=== PATIENT | male | born 1960 | race Caucasian/White ===

== ENCOUNTER → 2016-05-07 | Outpatient (CLI) | payer OTHER ==
[2016-05-07 12:36] LABS: Basophils % (A) 0 %; CH 30.6; CHCM 33.8; Eosinophils # (A) 0.1 k/uL (0-0.7); Eosinophils % (A) 1 %; HCT 41.8 % (39.0-53.0); HDW 2.42; HGB 13.8 gm/dL (13.0-17.5); Luc # (Auto) 0.11; Luc % (Auto) 1; Lymphocytes # (A) 1.2 k/uL (1.0-4.8); Lymphocytes % (A) 14 %; MCH 30.1 pg (25.0-35.0); MCV 91.1 fL (80.0-100.0); Mean Platelet Volume 8.1; Monocytes # (A) 0.4 k/uL (0-1.0); Monocytes % (A) 5 %; Neutrophils # (A) 6.9 k/uL (1.3-7.7); Neutrophils % (A) 79 %; RBC 4.59 m/uL (4.30-5.90); RDW 12.8 % (11.5-15.5); WBC 8.7 k/uL (3.8-10.6); WBC (Perox) 9.13
[2016-05-07 14:05] LABS: ALT 41 U/L (21-72); AST 23 U/L (17-59); Alkaline Phosphatase 67 U/L (38-126); Bilirubin, Delta 0.4 mg/dL (0.0-0.2); Total Bilirubin 0.5 mg/dL (0.2-1.3); Total Protein 7.9 g/dL (6.3-8.2)
== END | disposition home or self-care (01) ==
LOC: LABWHC1 11:45
PROVIDERS: ATTEND Nurse Practitioner Family
DX: Z51.81 Encounter for therapeutic drug level monitoring (principal); Z79.899 Other long term (current) drug therapy
CPT/HCPCS: 36415; 80076; 80164; 85025

== ENCOUNTER → 2016-05-25 | Outpatient (CLI) | payer OTHER ==
--- NOTE | 2016-05-25 14:15 | XR ---
EXAMINATION TYPE: XR Hip Complete LT DATE OF EXAM: 05/25/2016 2:09 PM COMPARISON: NONE HISTORY: Pain There is no evidence of erosive change or acute fracture. There is moderate axial narrowing of the joint space. Soft tissue calcifications seen. Impression 1. No evidence of acute fracture or dislocation. 2. Post arthritic changes.
--- NOTE | 2016-05-25 14:15 | XR ---
EXAMINATION TYPE: XR ankle complete RT DATE OF EXAM: 05/25/2016 2:09 PM COMPARISON: Tibia fibula x-ray 11/16/2012 HISTORY: Pain Three views of the ankle demonstrate complete loss of the ankle mortise with no evidence of joint spa ce remaining. There is fragmentation and soft tissue ossification along the lateral margin with soft tissue edema. There is a lucency within the distal tibia. IMPRESSION: 1. Severe arthritic change. Osteonecrosis of the talar dome not excluded. Recommend follow-up CT or M RI. 2. New round lucency, intraosseous lesion involving the distal tibia relative to the previous exam. T his can be seen with a large post arthritic geode. If there is concern for Sotero's abscess recommend MRI.
--- NOTE | 2016-05-25 14:18 | XR ---
EXAMINATION TYPE: XR knee complete LT DATE OF EXAM: 05/25/2016 2:09 PM COMPARISON: NONE HISTORY: Pain FINDINGS: There is severe narrowing of the medial compartment of the knee joint with hypertrophic change and ch ondrocalcinosis. Extensive hypertrophic changes are seen posterior within the popliteal fossa and nacho ng the suprapatellar bursa. Synovial chondromatosis in the differential. Large intraosseous lesion involving the proximal tibia may represent a bone cyst or be related to lar ge geode secondary to post arthritic changes. This is a new finding from the x-ray of 11/16/2012. IMPRESSION: 1. Severe arthritic changes 2. Persistent soft tissue calcification or ossification. Differential include synovial chondromatosis and PVNS. 3. Large cystic lesion involving the epiphysis of the tibia likely post arthritic and related to larg e geode or bone cyst.
== END | disposition home or self-care (01) ==
LOC: RADXRMAIN 13:39
PROVIDERS: ATTEND Psychiatry & Neurology Neurology
DX: M17.12 Unilateral primary osteoarthritis, left knee (principal); M19.071 Primary osteoarthritis, right ankle and foot; M16.12 Unilateral primary osteoarthritis, left hip; M85.662 Other cyst of bone, left lower leg
CPT/HCPCS: 73502

== ENCOUNTER → 2016-06-18 | Outpatient (CLI) | payer OTHER | END | disposition home or self-care (01) | LOC: LABWHC1 13:13 | PROVIDERS: ATTEND Psychiatry & Neurology Pain Medicine | DX: M87.9 Osteonecrosis, unspecified (principal) | CPT/HCPCS: 36415; 82306; 82310 ==

== ENCOUNTER → 2016-06-29 | Outpatient (CLI) | payer OTHER ==
--- NOTE | 2016-06-29 09:20 | US ---
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 EXAM MEASUREMENTS: Liver Length: 18.6 cm Gallbladder Wall: 0.3 cm CBD: 0.3 cm Right Kidney: 12.5 x 4.9 x 5.5 cm TECHNOLOGIST IMPRESSION: Pancreas: visualized portions appear wnl, tail obscured by overlying bowel gas Liver: enlarged, heterogeneously hyperechoic in appearance Gallbladder: non-mobile echogenic area = 0.3cm Evidence for sonographic Buckley's sign: No CBD: appears wnl Right Kidney: cystic area lower pole = 2.0 x 1.9 x 2.0cm Heterogeneous liver without intrahepatic ductal dilatation. Evaluation for masses is slightly subopti mal due to heterogeneity. Gallbladder is seen without shadowing mobile gallstones. 3 mm nonshadowing hyperechoic focus is suggestive of small polyp. There is 2 cm simple appearing cyst lower pole level right kidney redemonstrated slightly more prominent or larger versus prior study. IMPRESSION: Heterogeneous liver could reflect product of diffuse fatty infiltration or known underlyi ng hepatocellular disease. No intrahepatic ductal dilatation is noted.
== END | disposition home or self-care (01) ==
LOC: RADUSWWP 08:23
PROVIDERS: ATTEND Internal Medicine Gastroenterology
DX: B18.2 Chronic viral hepatitis C (principal)
CPT/HCPCS: 76705

== ENCOUNTER → 2016-07-01 | Outpatient (CLI) | payer OTHER ==
--- NOTE | 2016-07-01 07:51 | MR ---
EXAMINATION TYPE: MR hip LT wo con DATE OF EXAM: 07/01/2016 7:15 AM COMPARISON: NONE HISTORY: left hip pain TECHNIQUE: Multiplanar, multiecho imaging of the left hip is performed without IV contrast. FINDINGS: Pelvic soft tissues are unremarkable. There is mild degenerative change of both hips with mild overgrowth of the acetabulum. There is no ev idence of avascular necrosis of either hip. I do not see evidence of femoroacetabular impingement syn drome. No definite joint effusions are seen. There is no evidence of significant bursitis. I do not s ee evidence of a sports hernia. IMPRESSION: NO ACUTE OSSEOUS OR SOFT TISSUE ABNORMALITY. THERE IS MILD DEGENERATIVE CHANGE IN BOTH HIPS.
--- NOTE | 2016-07-01 08:03 | MR ---
EXAMINATION TYPE: MR knee LT wo con DATE OF EXAM: 07/01/2016 7:32 AM COMPARISON: Previous radiograph dated 05/25/2016. HISTORY: left knee pain TECHNIQUE: Multiplanar, multiecho imaging of the left knee is performed without IV contrast. FINDINGS: There is a small joint effusion which is decompressed into the gastrocnemius semimembranosu s bursa. This bursa is quite prominent measuring 7.9 x 2.8 x 3.8 cm. There is a small geode within the lateral patellar facet. There is a prominent, 3.9 cm cystic lesion within the proximal tibia just inferior to the lateral tibial spine. This was present on her previous radiograph. There is no significant chondromalacia patella. There is grade III to IV chondromalacia involving the weightbearing surface of the medial femoral condyle. There is complete loss of cartilaginous surface of the medial tibial plateau. There is grade I to II chondromalacia involving the weightbearing surf marielena of the lateral femoral condyle. There are remodeling changes in all 3 compartments. There is some abnormal signal within the anterior horn of the lateral meniscus. No through and throug h tear is seen. The medial meniscus is largely absent either truncated or surgically removed. The posterior cruciate ligament is intact. The anterior cruciate ligament is not visualized. There is an osseous loose body within the condylar notch. There is also a large loose body measuring 2.5 cm just posterior to the posterior cruciate ligament. A third, large ossific density is noted just superior to the posterior aspect of the medial femoral c ondyle. This measures 2.4 x 2.3 cm. This is causing erosion of the posterior aspect of the medial fem oral condyle. There is a fourth loose body measuring 1.1 cm and the trochlear notch. Both the medial and lateral collateral ligament complexes are intact. The iliotibial band inserts nor rashmi upon Gerdy's tubercle. The popliteus muscle and tendon appear normal. Both the patellar and quadriceps tendons are intact. There is mild swelling in the Hoffa fat space. IMPRESSION: 1. SEVERE CHONDROMALACIA DESCRIBED. 2. OSTEOARTHRITIS WITH REMODELING CHANGES. 3. GEODES IN BOTH THE PATELLA AND TIBIA. 4. MARKED DISTENTION OF THE GASTROCNEMIUS SEMIMEMBRANOSUS BURSA. 5. MULTIPLE LOOSE BODIES. 6. I CANNOT IDENTIFY THE ANTERIOR CRUCIATE LIGAMENT. 7. MARKEDLY ABNORMAL MEDIAL MENISCUS.
--- NOTE | 2016-07-01 09:13 | MR ---
EXAMINATION TYPE: MR knee RT wo con DATE OF EXAM: 07/01/2016 7:48 AM COMPARISON: NONE HISTORY: 56-year-old male with right knee pain TECHNIQUE: Multiplanar, multisequence imaging of the right knee is performed without IV contrast. FINDINGS: ACL and PCL are intact. There is mild thickening and periligamentous edema about the MCL which is oth erwise intact. LCL complex is intact. Fluid is seen extending along the popliteus tendon sheath. The posterior horn and body of the medial meniscus is diffusely degenerative and torn. Tear extends a nteriorly to the junction with the anterior horn. There is cartilage irregularity within the medial c ompartment with irregularity of the subchondral bone plate as well and some subchondral cystic change along the mid weightbearing aspect. There appears to be fairly high-grade cartilage loss along the m id to posterior central aspect of the medial femoral condyle with a defect measuring 9 mm wide and 2. 6 cm AP. The lateral meniscus appears intact intact. While there is marginal spurring in the lateral compartme nt, overall lateral compartment articular cartilage volume appears maintained. There is moderate focal cartilage loss along the trochlear groove and medial trochlear facet of the p atellofemoral compartment with some reactive subchondral marrow changes. Overall patellar articular c artilage is maintained. Extensor mechanism is intact. There is a small knee joint effusion and trace early Ahn's cyst formation. Loose bodies are present, largest is anteriorly in the region of Hoffa's fat measuring 2.4 x 2.0 cm. Approximately 5 loose bodies are present posteriorly, largest measuring 1.3 cm. There is normal popliteal artery anatomy with mild diffuse muscular atrophy. No suspicious bone marro w replacement. IMPRESSION: 1. Degenerative and torn posterior horn and body of the medial meniscus with tear extending forward t o the junction with the anterior horn. 2. Medial compartmental osteoarthrosis. There is superficial cartilage irregularity and possible old osteochondral injuries. However, an area of high-grade cartilage loss is present along the mid to pos terior central aspect of the medial femoral condyle measuring 9 mm wide and 2.6 cm AP. 3. Mild overall patellofemoral compartmental osteoarthrosis with cartilage cartilage loss along the t rochlear groove and medial trochlear facet. 4. Grade 1 MCL sprain. 5. Multiple intra-articular loose bodies, the largest is in the region of Hoffa's fat measuring up to 2.4 cm and there are 5 posteriorly measuring up to 1.3 cm. 6. Small knee joint effusion and trace early Ahn's cyst.
== END | disposition home or self-care (01) ==
LOC: RADMRIMAIN 06:08
PROVIDERS: ATTEND Psychiatry & Neurology Pain Medicine
DX: S83.241A Other tear of medial meniscus, current injury, right knee, initial encounter (principal); M25.861 Other specified joint disorders, right knee; S83.411A Sprain of medial collateral ligament of right knee, initial encounter; M79.4 Hypertrophy of (infrapatellar) fat pad; M71.21 Synovial cyst of popliteal space [Baker], right knee; M94.262 Chondromalacia, left knee; M25.862 Other specified joint disorders, left knee; M17.0 Bilateral primary osteoarthritis of knee; M16.0 Bilateral primary osteoarthritis of hip

== ENCOUNTER → 2016-07-03 | Outpatient (CLI) | payer OTHER ==
[2016-07-03 12:47] LABS: Basophils % (A) 0 %; CH 31.2; CHCM 33.9; Eosinophils # (A) 0.1 k/uL (0-0.7); Eosinophils % (A) 2 %; HCT 40.3 % (39.0-53.0); HDW 2.39; HGB 13.4 gm/dL (13.0-17.5); Luc % (Auto) 3; Lymphocytes # (A) 1.2 k/uL (1.0-4.8); Lymphocytes % (A) 17 %; MCH 30.7 pg (25.0-35.0); MCHC 33.2 g/dL (31.0-37.0); MCV 92.5 fL (80.0-100.0); Mean Platelet Volume 8.1; Monocytes # (A) 0.3 k/uL (0-1.0); Monocytes % (A) 5 %; Neutrophils # (A) 4.9 k/uL (1.3-7.7); Neutrophils % (A) 74 %; RBC 4.36 m/uL (4.30-5.90); RDW 13.8 % (11.5-15.5); WBC 6.7 k/uL (3.8-10.6); WBC (Perox) 7.17
[2016-07-06 15:50] LABS: HCV Qualitative Result DETECTED (Not detected)
== END | disposition home or self-care (01) ==
LOC: LABWHC1 12:22
PROVIDERS: ATTEND Internal Medicine Gastroenterology
DX: B18.2 Chronic viral hepatitis C (principal)
CPT/HCPCS: 36415; 82105; 85025; 87522; 87902

== ENCOUNTER → 2016-07-29 | Outpatient (CLI) | payer OTHER ==
[2016-07-29 06:02] LABS: ALT 41 U/L (21-72); AST 34 U/L (17-59); Alkaline Phosphatase 95 U/L (38-126); Anion Gap 15 mmol/L; Blood Urea Nitrogen 12 mg/dL (9-20); Calcium 9.8 mg/dL (8.4-10.2); Carbon Dioxide 26 mmol/L (22-30); Chloride 102 mmol/L (98-107); Glucose 131 mg/dL (74-99); Non-African American GFR(MDRD) >60 (>60 ml/min/1.73 sqM); Potassium 4.8 mmol/L (3.5-5.1); Sodium 143 mmol/L (137-145); Total Bilirubin 0.6 mg/dL (0.2-1.3)
[2016-07-29 06:31] LABS: Basophils % (A) 0 %; CH 31.9; CHCM 33.4; Eosinophils # (A) 0.3 k/uL (0-0.7); Eosinophils % (A) 3 %; HCT 39.9 % (39.0-53.0); HDW 2.38; Luc # (Auto) 0.25; Luc % (Auto) 3; Lymphocytes # (A) 2.5 k/uL (1.0-4.8); Lymphocytes % (A) 27 %; MCH 31.4 pg (25.0-35.0); MCHC 32.7 g/dL (31.0-37.0); MCV 96.1 fL (80.0-100.0); Mean Platelet Volume 8.7; Monocytes # (A) 0.5 k/uL (0-1.0); Monocytes % (A) 6 %; Neutrophils # (A) 5.5 k/uL (1.3-7.7); Neutrophils % (A) 61 %; RBC 4.16 m/uL (4.30-5.90); RDW 14.5 % (11.5-15.5)
== END | disposition home or self-care (01) ==
LOC: LABMAIN 02:16
PROVIDERS: ATTEND Internal Medicine Gastroenterology
DX: B18.2 Chronic viral hepatitis C (principal)
CPT/HCPCS: 36415; 80053; 85025

== ENCOUNTER → 2016-08-06 | Outpatient (CLI) | payer OTHER ==
--- NOTE | 2016-08-08 08:48 | MR ---
EXAMINATION TYPE: MR ankle RT wo con DATE OF EXAM: 08/06/2016 8:56 PM COMPARISON: Radiograph dated 05/25/2016 of the right ankle. HISTORY: Pain after injury. TECHNIQUE: Multiplanar, multisequence images of the right ankle without the utilization of intravenou s contrast. FINDINGS: Alignment: There is extensive joint space narrowing of the talotibial joint with nearly bone on bone articulation. Medial compartment: The posterior tibial tendon, flexor digitorum longus tendon, and deltoid ligament complex are intact. Lateral compartment::The peroneus longus tendon, peroneus brevis tendon, posterior talofibular ligame nt, and calcaneofibular ligament are intact. There is a full-thickness tear of the anterior talofibul ar ligament. Posterior compartment: The Achilles tendon, flexor hallucis longus tendon, and plantar fascia are int act and of normal signal. Anterior compartment: The extensor hallucis longus, extensor digitorum longus, and anterior tibial te ndon are intact and of normal signal. Bone marrow signal and articulations: As described above there is near [id number] articulation of t he talotibial joint. Extensive subchondral cysts are seen within the distal tibial at the articular s urface and talus at the articular surface. A larger bone cyst that is T2 hyperintense and T1 hypointe nse is seen medially measuring 1.8 cm. Osteophytic spurring and surrounding fibrous reactive change a re extensively present at the anterior tibiotalar joint and to a much lesser degree at the talonavicu lar joint. Reactive bone marrow edema is seen of the distal tibia and talar dome. Although there is e xtensive subchondral cystic change there is no flattening of the talar dome to indicate avascular nec rosis. Osteophyte projecting off the calcaneus at the articulation of the posterior facet of the talu s and the calcaneus creates surrounding inflammatory change of the subcutaneous soft tissues. Localized bone marrow edema is seen just deep to the sustentaculum cedric no discrete fracture is ident ified. Other: No additional significant abnormality is appreciated. IMPRESSION: 1. Extensive degenerative change of the talotibial joint with near [id number] articulation and reac tive bone marrow edema of the distal tibia and talar dome. Notably there is no flattening of the desiree r dome or evidence of avascular necrosis. 2. Focal calcaneal bone marrow edema deep to the sustentaculum cedric without discrete fracture. 3. Full-thickness tear of the anterior talofibular ligament. 4. Extensive arthropathy of the anterior and posterior tibiotalar joints and calcaneal joints may cre ate impingement.
--- NOTE | 2016-08-08 09:01 | MR ---
EXAMINATION TYPE: MR ankle LT wo con DATE OF EXAM: 08/06/2016 8:56 PM COMPARISON: None. HISTORY: Pain. TECHNIQUE: Multiplanar, multisequence images of the left ankle without the utilization of intravenous contrast. FINDINGS: Alignment: Alignment of the ankle joint is maintained. Medial compartment: The posterior tibial tendon, flexor digitorum longus tendon, and deltoid ligament complex are intact. Lateral compartment: There is suspected short segment split tear of the peroneus brevis tendon distal to the ankle joint with surrounding high signal intensity indicating tenosynovitis. The peroneus yasir bud tendon, posterior talofibular ligament, and calcaneofibular ligament are intact. There is a full- thickness tear of the anterior talofibular ligament. Posterior compartment: The Achilles tendon, flexor hallucis longus tendon, and plantar fascia are int act and of normal signal. Anterior compartment: The extensor hallucis longus, extensor digitorum longus, and anterior tibial te ndon are intact and of normal signal. Bone marrow signal and articulations: Small subchondral cyst is present of the posterior medial dista l tibia at the tibiotalar articulation. Small bone cyst is also seen of the second cuneiform proximal ly without significant bone marrow edema. Minimal marginal osteophyte of early arthropathy are presen t at the talonavicular joint. Other: No additional significant abnormality is appreciated. IMPRESSION: 1. Full-thickness tear of the anterior talofibular ligament. 2. Suggestion of a short segment split tear of the prominence brevis distal to the ankle joint with a ssociated tenosynovitis. 3. Mild osteoarthritic changes of the tibiotalar joint and talonavicular joint.
== END ==
LOC: RADMRIMAIN 18:54
PROVIDERS: ATTEND Psychiatry & Neurology Pain Medicine
DX: S83.421A Sprain of lateral collateral ligament of right knee, initial encounter (principal); R60.0 Localized edema; S83.422A Sprain of lateral collateral ligament of left knee, initial encounter; M19.071 Primary osteoarthritis, right ankle and foot; M19.072 Primary osteoarthritis, left ankle and foot

== ENCOUNTER 2017-07-28 14:15 | Inpatient (IN) | payer MEDICAID, OTHER ==
--- NOTE | 2017-07-28 16:09 | ED ---
Psych HPI - General Chief Complaint: Psychiatric Symptoms Stated Complaint: suicidal Time Seen by Provider: 07/28/17 14:20 Source: patient, police Mode of arrival: EMS - History of Present Illness Initial Comments: Patient complains of acute psychiatric disorder. He has aggressive behavior. He also admits to alcohol intoxication. Patient denies any fever, chills, chest pain. He has no belly or back pain. He has no nausea or vomiting. He has no lightheadedness or dizziness. He has no weakness or trouble walking. He is tolerating oral intake. - Related Data Home Medications Medication Instructions Recorded Confirmed ALPRAZolam [Xanax] 1 mg PO TID 07/28/17 07/28/17 Divalproex ER [Depakote ER] 500 mg PO HS 07/28/17 07/28/17 HYDROcodone/APAP 10-325MG [[place] 1 tab PO TID PRN 07/28/17 07/28/17 10-325] Lisdexamfetamine Dimesylate 70 mg PO DAILY 07/28/17 07/28/17 [Vyvanse] Pregabalin [Lyrica] 75 mg PO BID 07/28/17 07/28/17 QUEtiapine FUMARATE [Seroquel Xr] 400 mg PO HS 07/28/17 07/28/17 Topiramate [Topamax] 25 mg PO BID 07/28/17 07/28/17 Allergies Allergy/AdvReac Type Severity Reaction Status Date / Time No Known Allergies Allergy Verified 07/28/17 14:39 Review of Systems ROS Statement: Those systems with pertinent positive or pertinent negative responses have been documented in the HPI. ROS Other: All systems not noted in ROS Statement are negative. Past Medical History Past Medical History: Deep Vein Thrombosis (DVT), Hypertension Additional Past Medical History / Comment(s): Hernia, degenerative arthritis History of Any Multi-Drug Resistant Organisms: None Reported Past Surgical History: Hernia Repair, Orthopedic Surgery Additional Past Surgical History / Comment(s): Umbilical hernia repair, I&D of the left foot between the fourth and fifth toes Past Anesthesia/Blood Transfusion Reactions: No Reported Reaction Past Psychological History: ADD/ADHD Smoking Status: Current every day smoker Past Alcohol Use History: Occasional Past Drug Use History: None Reported - Past Family History Father Additional Family Medical History / Comment(s): Biological father in his 60s from complications of an ankle surgery. Mother Additional Family Medical History / Comment(s): Biological mother in her 50s from suicide. Sister(s) Additional Family Medical History / Comment(s): He has 8 sisters with no major medical problems. Patient does not have any children. General Exam Limitations: no limitations General appearance: alert, in no apparent distress Head exam: Present: atraumatic, normocephalic, normal inspection Eye exam: Present: normal appearance, PERRL, EOMI. Absent: scleral icterus, conjunctival injection, periorbital swelling ENT exam: Present: normal exam Neck exam: Present: normal inspection Respiratory exam: Absent: respiratory distress Extremities exam: Present: normal inspection, full ROM Back exam: Present: normal inspection Neurological exam: Present: alert, oriented X3 Psychiatric exam: Present: normal affect Skin exam: Present: intact Course Vital Signs 07/28/17 14:26 Temperature 98.6 F Pulse Rate 96 Respiratory 18 Rate Blood Pressure 142/78 O2 Sat by Pulse 96 Oximetry Medical Decision Making - Medical Decision Making Patient presents with psychiatric disorder and acute alcohol intoxication. At this time it is in the my shift. Patient is pending sobriety and psychiatric evaluation. He'll be signed out to the oncoming physician. Disposition Clinical Impression: Depression, Alcohol intoxication Disposition: ADMITTED IP TO THIS [facility] Condition: Fair Is patient prescribed a controlled substance at discharge?: No Referrals: None,Stated [Primary Care Provider] - 1-2 days
[2017-07-28 19:12] LABS: Amphetamine Screen,Urine Detected (NotDetected); Barbiturate Screen,Urine Not Detected (NotDetected); Benzodiazepines Screen,Urine Detected (NotDetected); Cocaine Screen,Urine Not Detected (NotDetected); Methadone Screen, Urine Not Detected (NotDetected); Opiate Screen,Urine Not Detected (NotDetected); Oxycodone Screen, Urine Not Detected (NotDetected); Phencyclidine Screen,Urine Not Detected (NotDetected); Tricyclic Antidepressant,Urine Not Detected (NotDetected); Urn Cannabinoid Scrn Detected (NotDetected)
[2017-07-28] MEDS ORDERED: ACETAMINOPHEN TAB 325 MG TAB PO PRN (22:55)
[2017-07-28] MEDS ORDERED: MAG HYDROX/AL HYDROX/SIMETH 30 ML CUP PO PRN (22:55)
[2017-07-28] MEDS ORDERED: MAGNESIUM HYDROXIDE 2,400 MG/10 ML CUP PO PRN (22:55)
[2017-07-28 23:05] VITALS: BMI 23.5
[2017-07-28] MEDS: DIVALPROEX ER 500 MG TAB.ER.24H PO SCH (23:38)
[2017-07-28] MEDS: LORazepam 1 MG TAB PO SCH (23:38)
[2017-07-29] MEDS: LORazepam 1 MG TAB PO SCH ×3 (08:13→20:16)
[2017-07-29] MEDS: NICOTINE 21MG/24HR PATCH TRANSDERM SCH (08:13)
[2017-07-29] MEDS: TOPIRAMATE 25 MG TAB PO SCH ×2 (08:13→20:17)
[2017-07-29 09:07] LABS: Basophils % (A) 0 %; Eosinophils # (A) 0.1 k/uL (0-0.7); Eosinophils % (A) 2 %; HCT 47.1 % (39.0-53.0); HGB 15.4 gm/dL (13.0-17.5); Lymphocytes # (A) 1.7 k/uL (1.0-4.8); Lymphocytes % (A) 25 %; MCH 31.2 pg (25.0-35.0); MCHC 32.8 g/dL (31.0-37.0); MCV 95.2 fL (80.0-100.0); Mean Platelet Volume 8.3; Monocytes # (A) 0.4 k/uL (0-1.0); Monocytes % (A) 6 %; Neutrophils # (A) 4.4 k/uL (1.3-7.7); Neutrophils % (A) 65 %; Platelet Count 223 k/uL (150-450); RBC 4.94 m/uL (4.30-5.90); WBC 6.7 k/uL (3.8-10.6)
[2017-07-29 09:42] LABS: ALT 30 U/L (21-72); AST 23 U/L (17-59); Albumin 4.6 g/dL (3.5-5.0); Alkaline Phosphatase 106 U/L (38-126); Anion Gap 10 mmol/L; Blood Urea Nitrogen 14 mg/dL (9-20); Carbon Dioxide 25 mmol/L (22-30); Chloride 106 mmol/L (98-107); Cholesterol 268 mg/dL (<200); Glucose 139 mg/dL (74-99); HDL Cholesterol 106 mg/dL (40-60); LDL Cholesterol,Calculated 132 mg/dL (0-99); Potassium 4.4 mmol/L (3.5-5.1); Sodium 141 mmol/L (137-145); Total Bilirubin 0.6 mg/dL (0.2-1.3); Total Protein 7.4 g/dL (6.3-8.2); Triglycerides 152 mg/dL (<150)
[2017-07-29] MEDS: LORazepam 1 MG TAB PO PRN (11:29)
[2017-07-29] MEDS: FOLIC ACID 1 MG TAB PO SCH (11:29)
[2017-07-29] MEDS: THIAMINE 100 MG TAB PO SCH (11:30)
--- NOTE | 2017-07-29 12:49 | CONS ---
CONSULTATION REASON FOR CONSULTATION: Advice regarding back pain and other medical issues requested by Psychiatry. HISTORY OF PRESENT ILLNESS: This 57-year-old gentleman with a past medical history of back pain, numbness, DVT, hypertension, hernia, DJD, ADD, ADHD being followed by Dr. Rubi Ruiz in the outpatient setting was admitted with alcohol abuse. The patient apparently had a back pain and numbness. Evaluated by Dr. Zamudio and MRI scan was scheduled on of this month. The EMG has been done. Results are not available at this time. There is no history of fever, rigors. No headache, loss of consciousness, seizures. The patient also complaining of discharging area from between the left 4th and 5th toes and was admitted about 8 months ago in [facility]. PAST MEDICAL HISTORY: History of DVT, hypertension, history of DJD, ADD, ADHD, nicotine dependence, ETOH. MEDICATIONS: Prior to admission: 1. Mcdonald 10 mg t.i.d. p.r.n. 2. Topamax 25 mg p.o. b.i.d. 3. Vyvanse 70 mg p.o. daily. 4. Seroquel XR 400 mg q.h.s. 5. Lyrica 75 mg p.o. b.i.d. 6. Depakote ER 500 mg q.h.s. 7. Xanax 1 mg p.o. t.i.d. ALLERGIES: None. FAMILY HISTORY: History of degenerative joint disease. SOCIAL HISTORY: History of alcohol, THC, smoking. REVIEW OF SYSTEMS: ENT: No diminished vision or hearing. CARDIOVASCULAR: No angina. RESPIRATORY: Occasional cough. GI: No nausea or vomiting. : No dysuria. NERVOUS SYSTEM: Mentioned earlier. ALLERGY/IMMUNOLOGY: No history of asthma. MUSCULOSKELETAL: As mentioned earlier. HEMATOLOGY: No history of anemia. ENDOCRINE: No history of diabetes or hypothyroidism. CONSTITUTIONAL: As mentioned earlier. DERMATOLOGY: Negative. RHEUMATOLOGY: Negative. PSYCHIATRY: As mentioned earlier. PHYSICAL EXAM: Patient is alert, oriented x3. Pulse is 51, blood pressure 150/79, respirations 16, temperature 97.4, pulse ox 98% room air. HEENT: Conjunctivae normal. Oral mucosa moist. NECK: No jugular venous distention. No carotid bruit. No lymph node enlargement. CARDIOVASCULAR: S1, S2 muffled. No S3, no S4. RESPIRATORY: Breath sounds diminished in the bases. A few scattered rhonchi. No crackles. ABDOMEN: Soft, nontender. No mass palpable. LEGS: No edema, no swelling. NERVOUS SYSTEM: Higher functions as mentioned earlier. Moves all 4 limbs. Otherwise, mild numbness on the legs present. No evidence of cellulitis of the left foot. NERVOUS SYSTEM: No focal motor deficit. SKIN: As mentioned earlier. LYMPHATICS: No lymphadenopathy in the neck, axillae, groin. JOINTS: No active deforming arthropathy. LABS: At this time shows triglycerides 152, cholesterol 260, LDL is 132, HDL is 106. Drug screen positive for amphetamines, benzodiazepines and THC. ASSESSMENT: 1. Back pain and numbness of the legs, being evaluated in the outpatient setting. 2. ETOH and ETOH intoxication present on admission. 3. Depression. 4. Hyperlipidemia and hypertriglyceridemia. 5. History of deep vein thrombosis. 6. Hypertension. 7. History of hernia. 8. History of degenerative joint disease. 9. History of cellulitis of the left foot. 10.History of attention deficit disorder, attention deficit hyperactivity disorder. 11.History of nicotine dependence. 12.History of polysubstance abuse. RECOMMENDATION AND DISCUSSION: This 57-year-old gentleman who presented with multiple complex medical issues, will monitor the patient closely. Continue the current management, continue symptomatic treatment. I also recommend to resume the home medications. Otherwise I would also recommend initiation of Lipitor and I would also recommend close follow up with the primary physician in the outpatient setting. Thank you for letting us participate in this patient. Patient may be asked to follow up with Dr. Venegas closely in the outpatient setting. MMODL / IJN: [id number] /
[2017-07-29] MEDS: HYDROcodone/APAP 10-325MG 1 EACH TAB PO PRN (16:07)
[2017-07-29 16:57] LABS: Hemoglobin A1C 6.4 % (4.0-6.0)
[2017-07-29] MEDS: lamoTRIgine 25 MG TAB PO SCH (20:16)
[2017-07-29] MEDS: ATORVASTATIN 10 MG TAB PO SCH (20:16)
[2017-07-29] MEDS: DIVALPROEX ER 500 MG TAB.ER.24H PO SCH (20:17)
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
[2017-07-30] MEDS: NICOTINE 21MG/24HR PATCH TRANSDERM SCH (08:32)
[2017-07-30] MEDS: lamoTRIgine 25 MG TAB PO SCH ×2 (08:32→20:56)
[2017-07-30] MEDS: HYDROcodone/APAP 10-325MG 1 EACH TAB PO PRN ×2 (08:33→18:32)
[2017-07-30] MEDS: TOPIRAMATE 25 MG TAB PO SCH ×2 (08:33→20:55)
[2017-07-30] MEDS: LORazepam 1 MG TAB PO SCH ×3 (08:35→20:56)
--- NOTE | 2017-07-30 10:18 | P.PN ---
Progress Note - Text Interval history: The patient is found in group he follows me to an interview room. He reports that his mood is better. He reports having impaired sleep last night but it's better than it was before he came to the hospital. Staff reported he slept 6 hours. We discussed the possibility of him attending inpatient chemical dependency treatment and he states he is still giving it consideration. He has the phone number to call but has not yet made the call. We discussed the likelihood of inpatient chemical dependency treatment helping him. We reviewed his psychotropic medication. It appears Dr. Pinzon did reinstate the patient's [place] 10 mg 3 times daily. We are using Ativan to prevent alcohol withdrawal. Vital signs reviewed. Mental status exam: The patient is alert he has a disheveled appearance he is dressed in his own clothing. Eye contact is appropriate. He is cooperative and pleasant. He reports his moods improved. He feels safe here in the hospital. He is endorsing no acute thoughts of harming himself here. No thoughts of harming others. He is endorsing no auditory or visual hallucinations or any specific delusions. Thought process demonstrates no tangential thinking loose associations or flight of ideas. He does not appear hypomanic or manic. Insight and judgment limited. He is oriented to person place and date. He demonstrates no verbal or physical aggressiveness. Plan: The patient will continue on the Lamictal as written. We will discontinue the Depakote as he feels it makes him overly sedated during the day. Our goal is to taper down the Ativan. We will monitor him for safety and encourage his participation in the milieu. He strongly encouraged to call for inpatient chemical dependency placement.
[2017-07-30 10:54] LABS: Appearance,Urine Clear (Clear); Bilirubin,Urine Negative (Negative); Blood,Urine Negative (Negative); Color,Urine Yellow; Glucose,Urine (UA) 2+ (Negative); Ketones,Urine Negative (Negative); Leukocyte Esterase,Urine Negative (Negative); Nitrite,Urine Negative (Negative); PH, Urine 6.5 (5.0-8.0); Protein,Urine Trace (Negative); Specific Gravity,Urine 1.024 (1.001-1.035)
[2017-07-30] MEDS: THIAMINE 100 MG TAB PO SCH (12:18)
[2017-07-30] MEDS: FOLIC ACID 1 MG TAB PO SCH (12:18)
[2017-07-30] MEDS: LORazepam 1 MG TAB PO PRN (12:22)
[2017-07-30] MEDS: ATORVASTATIN 10 MG TAB PO SCH (20:56)
[2017-07-31] MEDS: NICOTINE 21MG/24HR PATCH TRANSDERM SCH (08:06)
[2017-07-31] MEDS: lamoTRIgine 25 MG TAB PO SCH ×2 (08:08→20:08)
[2017-07-31] MEDS: LORazepam 1 MG TAB PO SCH ×2 (08:08→20:08)
[2017-07-31] MEDS: HYDROcodone/APAP 10-325MG 1 EACH TAB PO PRN ×3 (08:08→23:15)
[2017-07-31] MEDS: TOPIRAMATE 25 MG TAB PO SCH ×2 (08:08→20:08)
[2017-07-31] MEDS: THIAMINE 100 MG TAB PO SCH (12:21)
[2017-07-31] MEDS: FOLIC ACID 1 MG TAB PO SCH (12:21)
--- NOTE | 2017-07-31 14:13 | P.PN ---
Progress Note - Text Progress Note Date: 07/31/17 Interval history: Patient seen in cross coverage today for Dr. Tello. Says he feels like he's been confused, for example when he wakes up he thinks he will be at home and even at nighttime he will have thoughts like he is at home. He seems to relate is not sleeping well. His vital signs today. To be within normal limits. He is not complaining of any significant alcohol withdrawal symptoms. Mental status exam: He is alert and cooperative with the interview. His speech is fluent, not rapid or pressured. Thought processes are organized. His mood is described as "lousy." He denies any thoughts of harm to self or others. He does not show any agitation. I do not notice any symptoms of psychosis. Plan: We'll taper back on Ativan as plan to 1 mg twice a day. We'll monitor for any alcohol withdrawal symptoms. He does have Ativan ordered as needed. We 'll continue to cover this patient for Dr. Alegria through the weekend.
[2017-07-31] MEDS: ATORVASTATIN 10 MG TAB PO SCH (20:08)
[2017-08-01 06:50] VITALS: RESP 16
[2017-08-01] MEDS: lamoTRIgine 25 MG TAB PO SCH ×2 (08:26→20:14)
[2017-08-01] MEDS: LORazepam 1 MG TAB PO SCH ×2 (08:26→20:14)
[2017-08-01] MEDS: TOPIRAMATE 25 MG TAB PO SCH ×2 (08:26→20:14)
[2017-08-01] MEDS: NICOTINE 21MG/24HR PATCH TRANSDERM SCH (08:26)
[2017-08-01] MEDS: HYDROcodone/APAP 10-325MG 1 EACH TAB PO PRN ×3 (08:26→22:25)
[2017-08-01] MEDS: FOLIC ACID 1 MG TAB PO SCH (12:17)
[2017-08-01] MEDS: THIAMINE 100 MG TAB PO SCH (12:17)
[2017-08-01] MEDS: LORazepam 1 MG TAB PO PRN (14:23)
--- NOTE | 2017-08-01 18:50 | P.PN ---
Progress Note - Text Progress Note Date: 08/01/17 Interval history: [place] [facility] [place]. He reports that he didn't sleep well again last night, slept a lot during the day today. He feels like his sleep cycle is reversed. He reports that he hasn't been feeling any of the confusion today. His mood seems to be doing well. He verbalizes he has done fine with tapering back on the Ativan. Mental status exam: He is alert and cooperative with the interview. Speech is fluent, not rapid or pressured. Thought processes are organized. His mood seems to be doing well. He does not verbalize any thoughts of harm to self or others. No evidence of psychosis or agitation. Plan: We'll monitor for any adverse psychotropic medication side effects. Continue to monitor his ongoing response to treatment. He has responded well to tapering back on the Ativan.
[2017-08-01] MEDS: ATORVASTATIN 10 MG TAB PO SCH (20:14)
[2017-08-02 06:51] VITALS: BP 122/61; PULSE 54; TEMP 98.8
[2017-08-02] MEDS: lamoTRIgine 25 MG TAB PO SCH (08:14)
[2017-08-02] MEDS: TOPIRAMATE 25 MG TAB PO SCH (08:14)
[2017-08-02] MEDS: LORazepam 1 MG TAB PO SCH (08:14)
[2017-08-02] MEDS: HYDROcodone/APAP 10-325MG 1 EACH TAB PO PRN ×2 (08:15→13:25)
[2017-08-02] MEDS: NICOTINE 21MG/24HR PATCH TRANSDERM SCH (08:28)
--- NOTE | 2017-08-02 11:54 | P.DS ---
Providers Date of admission: 07/28/17 22:37 Expected date of discharge: 08/02/17 Attending physician: Amadeo Alegria Consults: 07/28/17 23:59 Consult Physician Routine Consulting Provider: Víctor Pinzon Consult Reason/Comments: H and P with medical follow up Do you want consulting provider notified?: Yes, Notify in am Primary care physician: Stated None Hospital Course: Patient had his psychiatric evaluation done by Dr. Alegria, physical examination and psychosocial evaluation. After psychiatric examination he was started on Lamictal 25 mg twice a day Topamax 25 mg twice a day, thiamine 100 mg a day folic acid 1 mg a day and his benzodiazepines were ordered to be tapered off. Since his lipids were high he was started on Lipitor 10 mg at bedtime. Patient attended groups, socialized with peers and interacted with staff members. He continued to feel better, became free of suicide and homicide thoughts, is planning on going to the rehab on first august etc. In view of all these things it was agreed to discharge him today. Condition at the time of discharge: This is a white ambulatory male with adequate hygiene. He is unshaven and looks somewhat unkempt. He does not show any psychomotor agitation or retardation. His speech is spontaneous relevant and goal-directed. His mood is euthymic and affect is appropriate. He continues to deny suicide and homicide thoughts. He is well oriented with adequate memory concentration general knowledge etc. His insight and judgment have improved. Diagnosis on discharge: Bipolar 1 disorder most recent episode depressed moderate F 31.32. Alcohol use disorder severe F 10.20. Hyper lipidemia. NKDA. History of osteoarthritis of small joints. 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 Plan - Discharge Summary Discharge Rx Participant: Yes New Discharge Prescriptions: New Atorvastatin [Lipitor] 10 mg PO HS 30 Days #30 tab Folic Acid 1 mg PO DAILY@1200 30 Days #30 tab lamoTRIgine [LaMICtal] 25 mg PO BID 30 Days #60 tab LORazepam [Ativan] 1 mg PO DAILY 5 Days #5 tab Thiamine [Vitamin B-1] 100 mg PO DAILY@1200 30 Days #30 tab Continue Topiramate [Topamax] 25 mg PO BID 30 Days #60 tab Discontinued Lisdexamfetamine Dimesylate [Vyvanse] 70 mg PO DAILY QUEtiapine FUMARATE [Seroquel Xr] 400 mg PO HS Pregabalin [Lyrica] 75 mg PO BID Divalproex ER [Depakote ER] 500 mg PO HS ALPRAZolam [Xanax] 1 mg PO TID HYDROcodone/APAP 10-325MG [[place] 10-325] 1 tab PO TID PRN PRN Reason: Pain Discharge Medication List Atorvastatin [Lipitor] 10 mg PO HS 30 Days #30 tab 08/02/17 [Rx] Folic Acid 1 mg PO DAILY@1200 30 Days #30 tab 08/02/17 [Rx] LORazepam [Ativan] 1 mg PO DAILY 5 Days #5 tab 08/02/17 [Rx] Thiamine [Vitamin B-1] 100 mg PO DAILY@1200 30 Days #30 tab 08/02/17 [Rx] Topiramate [Topamax] 25 mg PO BID 30 Days #60 tab 08/02/17 [Rx] lamoTRIgine [LaMICtal] 25 mg PO BID 30 Days #60 tab 08/02/17 [Rx] Follow up Appointment(s)/Referral(s): RAI Tatum [Other] - 08/05/17 9:45 pm (Please call to verify the time ) None,Stated [Primary Care Provider] - 1-2 days Activity/Diet/Wound Care/Special Instructions: Follow up with primary care regarding HGB A1C of 6.4.
[2017-08-02] MEDS: THIAMINE 100 MG TAB PO SCH (12:38)
[2017-08-02] MEDS: FOLIC ACID 1 MG TAB PO SCH (12:38)
== END 2017-08-02 14:48 | disposition home or self-care (01) | DRG 885 ==
LOC: EC 14:15 → 3MHU 22:37
PROVIDERS: ADMIT Psychiatry & Neurology Psychiatry; ATTEND Psychiatry & Neurology Psychiatry
DX: F31.32 Bipolar disorder, current episode depressed, moderate (principal); R45.851 Suicidal ideations; Z78.1 Physical restraint status; E78.1 Pure hyperglyceridemia; E78.5 Hyperlipidemia, unspecified; F10.129 Alcohol abuse with intoxication, unspecified; F17.200 Nicotine dependence, unspecified, uncomplicated; F90.9 Attention-deficit hyperactivity disorder, unspecified type; I10 Essential (primary) hypertension; M19.90 Unspecified osteoarthritis, unspecified site; Y90.7 Blood alcohol level of 200-239 mg/100 ml; Z79.899 Other long term (current) drug therapy; Z81.1 Family history of alcohol abuse and dependence; Z86.718 Personal history of other venous thrombosis and embolism; F41.0 Panic disorder [episodic paroxysmal anxiety]; F12.10 Cannabis abuse, uncomplicated; F13.10 Sedative, hypnotic or anxiolytic abuse, uncomplicated; Z62.810 Personal history of physical and sexual abuse in childhood
CPT/HCPCS: 80053; 80061; 80306; 81003; 82075; 83036; 84443; 85025; 99285

== ENCOUNTER → 2017-08-05 | Outpatient (CLI) | payer OTHER ==
--- NOTE | 2017-08-05 22:33 | MR ---
EXAMINATION TYPE: MR lumbar spine wo con DATE OF EXAM: 08/05/2017 10:23 PM COMPARISON: NONE HISTORY: LBP, LLE radic x several years, no trauma Multiplanar, MultiSpin echo imaging of the lumbar spine was performed. L1-L2: Normal disc appearance without desiccation. No herniation, protrusion or disc bulging. No ca nal stenosis is present. Foramina are patent bilaterally. L2-L3: Normal disc appearance without desiccation. No herniation, protrusion or disc bulging. No ca nal stenosis is present. Foramina are patent bilaterally. L3-L4: There is mild disc desiccation noted. No herniation, protrusion or disc bulging. No canal shirin nosis is present. Foramina are patent bilaterally. L4-L5: Moderate disc desiccation. Posterocentral disc herniation with small extruded component diffic ult to exclude. There is mild effacement ventral thecal sac. There is hypertrophy of the ligamentum f lavum and facet joint arthropathy resulting in constriction of the thecal sac without overt stenosis. There is a moderate to severe bilateral foraminal encroachment right greater than left. L5-S1: Moderate to severe disc desiccation. Left paracentral disc herniation with partial encapsulati ng spur resulting in disc endplate complex. There is resultant left lateral recess stenosis and moder ate foraminal encroachment. Moderate right-sided foraminal encroachment noted as well. Lumbar segments are intact. No paraspinal masses are identified. Conus medullaris has a normal appe arance. IMPRESSION: 1. Multilevel degenerative disc disease. 2. Mild posterocentral disc herniation at L4-5 with small extrusion suspected. Bilateral foraminal en croachment. See above. 3. Left paracentral disc herniation with partial encapsulating spur in left lateral recess stenosis.
== END | disposition home or self-care (01) ==
LOC: RADMRIMAIN 21:55
PROVIDERS: ATTEND Psychiatry & Neurology Pain Medicine
DX: M48.061 Spinal stenosis, lumbar region without neurogenic claudication (principal); M51.26 Other intervertebral disc displacement, lumbar region; M51.36 Other intervertebral disc degeneration, lumbar region
CPT/HCPCS: 72148

== ENCOUNTER → 2017-09-03 | Outpatient (CLI) | payer OTHER ==
[2017-09-03 10:00] LABS: Calcium 9.5 mg/dL (8.4-10.2); Magnesium 1.9 mg/dL (1.6-2.3)
[2017-09-03 16:44] LABS: Hemoglobin A1C 6.6 % (4.0-6.0)
[2017-09-06 17:20] LABS: Vitamin K 5.47 nmol/L (0.22-4.88)
== END | disposition home or self-care (01) ==
LOC: LABWHC1 09:13
PROVIDERS: ATTEND Psychiatry & Neurology Pain Medicine
DX: G89.4 Chronic pain syndrome (principal); Z79.899 Other long term (current) drug therapy
CPT/HCPCS: 36415; 82306; 82310; 82550; 83036; 83519; 83735; 84207; 84425; 84446; 84590; 84591; 84597

== ENCOUNTER → 2017-12-09 | Outpatient (CLI) | payer OTHER ==
--- NOTE | 2017-12-09 13:40 | US ---
EXAMINATION TYPE: US scrotum with doppler. Grayscale and color Doppler Duplex imaging performed of t he scrotum. DATE OF EXAM: 12/09/2017 COMPARISON: NONE CLINICAL HISTORY: N50.9 MASS OF RT TESTICLE. Pt states palpable lump right testicle EXAM MEASUREMENTS: TESTICLES: Right Testicle: 4.1 x 1.9 x 3.4 cm Left Testicle: 3.6 x 1.7 x 3.1 cm EPIDIDYMIS HEAD: Left Epididymis: 1.1 cm Doppler performed to assess for testicular vascularity; good bilateral color flow and waveforms are s een. There is no evidence of testicular torsion. Presence of hydroceles: Small amount of fluid inferior to left testicle Presence of varicoceles: Yes, on right Right epididymal head cyst at pt's palpable= 2.8 x 1.9 x 3.1 cm Left scrotal tena inferior to left testicle= 0.2 cm IMPRESSION: 1. Palpable abnormality corresponds to right epididymal head cyst.
== END | disposition home or self-care (01) ==
LOC: RADUSWWP 12:52
PROVIDERS: ATTEND Family Medicine
DX: N50.3 Cyst of epididymis (principal)
CPT/HCPCS: 76870; 93975

== ENCOUNTER → 2017-12-23 | Outpatient (CLI) | payer OTHER | END | disposition home or self-care (01) | LOC: LABWHC1 13:22 | PROVIDERS: ATTEND Psychiatry & Neurology Pain Medicine | DX: E55.9 Vitamin D deficiency, unspecified (principal); R79.9 Abnormal finding of blood chemistry, unspecified | CPT/HCPCS: 36415; 82306; 82550; 84597 ==

== ENCOUNTER 2018-01-21 13:51 | Inpatient (IN) | payer MEDICAID, OTHER ==
[2018-01-21] MEDS ORDERED: ONDANSETRON 4 MG/2 ML VIAL IVP STA (14:01)
[2018-01-21] MEDS ORDERED: SODIUM CHLORIDE 0.9% 1,000 ML IV STA (14:01)
--- NOTE | 2018-01-21 14:19 | ED ---
Psych HPI - General Source: patient, EMS, RN notes reviewed Mode of arrival: EMS Limitations: no limitations <Wily Zamora - Last Filed: 01/21/18 14:18> <Beth Us - Last Filed: 01/21/18 23:17> <Zay Soriano - Last Filed: 01/22/18 12:51> - General Chief Complaint: Psychiatric Symptoms Stated Complaint: mental health Time Seen by Provider: 01/21/18 13:58 - History of Present Illness Initial Comments: 58-year-old male presents emergency Department chief complaint of suicide , nausea vomiting alcohol abuse. Patient states he went to [facility] for his appointment today and he is advised to come emergency department he was brought via EMS. Patient states he is suicidal. Patient states that he's been drinking on-call daily for last few days. Patient states he feels nauseated and has had some vomiting issues. Patient denies fever, chills, chest pain or shortness breath. Denies any illicit drug use. (Wily Zamora) - Related Data Home Medications Medication Instructions Recorded Confirmed Atorvastatin [Lipitor] 20 mg PO HS 01/21/18 01/21/18 Divalproex ER [Depakote ER] 500 mg PO HS 01/21/18 01/21/18 Ergocalciferol (Vitamin D2) 50,000 unit PO Q7D 01/21/18 01/21/18 [Vitamin D2] HYDROcodone/APAP 10-325MG [[place] 1 tab PO TID 01/21/18 01/21/18 10-325] Lisdexamfetamine Dimesylate 30 mg PO QAM 01/21/18 01/21/18 [Vyvanse] Multivitamins, Thera [Multivitamin 1 tab PO DAILY 01/21/18 01/21/18 (formulary)] Pregabalin [Lyrica] 150 mg PO BID 01/21/18 01/21/18 Ranitidine HCl [Zantac] 150 mg PO BID 01/21/18 01/21/18 amLODIPine [Norvasc] 5 mg PO DAILY 01/21/18 01/21/18 hydrOXYzine PAMOATE [Vistaril] 25 mg PO DAILY 01/21/18 01/21/18 hydrOXYzine PAMOATE [Vistaril] 50 mg PO HS 01/21/18 01/21/18 Allergies Allergy/AdvReac Type Severity Reaction Status Date / Time No Known Allergies Allergy Verified 01/21/18 14:28 Review of Systems ROS Other: All systems not noted in ROS Statement are negative. <Wily Zamora - Last Filed: 01/21/18 14:18> ROS Other: All systems not noted in ROS Statement are negative. <Beth Us P - Last Filed: 01/21/18 23:17> ROS Other: All systems not noted in ROS Statement are negative. <Zay Soriano Samantha - Last Filed: 01/22/18 12:51> ROS Statement: Those systems with pertinent positive or pertinent negative responses have been documented in the HPI. Past Medical History Past Medical History: Deep Vein Thrombosis (DVT), Hypertension Additional Past Medical History / Comment(s): Hernia, degenerative arthritis History of Any Multi-Drug Resistant Organisms: None Reported Past Surgical History: Hernia Repair, Orthopedic Surgery Additional Past Surgical History / Comment(s): Umbilical hernia repair, I&D of the left foot between the fourth and fifth toes 2016 Past Anesthesia/Blood Transfusion Reactions: No Reported Reaction Past Psychological History: ADD/ADHD Smoking Status: Current every day smoker Past Alcohol Use History: Abuse, Daily, Heavy Past Drug Use History: Marijuana - Past Family History Father Additional Family Medical History / Comment(s): Biological father in his 60s from complications of an ankle surgery. Mother Additional Family Medical History / Comment(s): Biological mother in her 50s from suicide. Sister(s) Additional Family Medical History / Comment(s): He has 8 sisters with no major medical problems. Patient does not have any children. <Wily Zamora - Last Filed: 01/21/18 14:18> General Exam Limitations: no limitations General appearance: alert, in no apparent distress Head exam: Present: atraumatic, normocephalic, normal inspection Eye exam: Present: normal appearance, PERRL, EOMI. Absent: scleral icterus, conjunctival injection, periorbital swelling ENT exam: Present: normal exam, normal oropharynx, mucous membranes moist Neck exam: Present: normal inspection, full ROM. Absent: tenderness, meningismus, lymphadenopathy Respiratory exam: Present: normal lung sounds bilaterally. Absent: respiratory distress, wheezes, rales, rhonchi, stridor Cardiovascular Exam: Present: regular rate, normal rhythm, normal heart sounds. Absent: systolic murmur, diastolic murmur, rubs, gallop, clicks GI/Abdominal exam: Present: soft, tenderness, normal bowel sounds. Absent: distended, guarding, rebound, rigid Neurological exam: Present: alert, oriented X3, CN II-XII intact Psychiatric exam: Present: depressed <Wily Zamora - Last Filed: 01/21/18 14:18> Vital Signs 01/21/18 01/21/18 01/21/18 14:07 17:13 23:53 Temperature 98.3 F Pulse Rate 105 H 77 92 Respiratory 18 20 20 Rate Blood Pressure 187/108 171/81 157/85 O2 Sat by Pulse 96 97 97 Oximetry 01/22/18 07:35 Temperature 98.7 F Pulse Rate 86 Respiratory 18 Rate Blood Pressure 178/90 O2 Sat by Pulse 97 Oximetry Medical Decision Making <Wily Zamora - Last Filed: 01/21/18 14:18> - Lab Data Result diagrams: 01/21/18 14:20 01/21/18 14:20 <Beth Us - Last Filed: 01/21/18 23:17> - Lab Data Result diagrams: 01/21/18 14:20 01/21/18 14:20 <Zay Soriano - Last Filed: 01/22/18 12:51> - Medical Decision Making Patient care was signed out to me at 9 PM, patient was evaluated by EPS and determined to be acutely suicidal. Decision was made to petition the patient. I evaluated the patient and advised him that the evaluation was for determination if he required a circumflex. Patient's breast understanding. Patient admitted that he been depressed, drinking heavily, thoughts of suicide with the plan to either by a gun or call 911 and have the police shoot him. At this time I do feel the patient requires inpatient hospitalization for psychiatric evaluation. Cert was completed. Home meds were ordered. (Beth Us) Patient will be admitted to this institution for further psychiatric evaluation and treatment. (Zay Soriano) - Lab Data Lab Results 01/21/18 01/21/18 01/21/18 Range/Units 14:20 14:20 14:20 WBC 5.5 (3.8-10.6) k/uL RBC 5.58 (4.30-5.90) m/uL Hgb 17.3 (13.0-17.5) gm/dL Hct 51.0 (39.0-53.0) % MCV 91.3 (80.0-100.0) fL MCH 30.9 (25.0-35.0) pg MCHC 33.8 (31.0-37.0) g/dL RDW 12.8 (11.5-15.5) % Plt Count 309 (150-450) k/uL Neutrophils % 50 % Lymphocytes % 35 % Monocytes % 6 % Eosinophils % 4 % Basophils % 1 % Neutrophils # 2.8 (1.3-7.7) k/uL Lymphocytes # 1.9 (1.0-4.8) k/uL Monocytes # 0.3 (0-1.0) k/uL Eosinophils # 0.2 (0-0.7) k/uL Basophils # 0.0 (0-0.2) k/uL Sodium 143 (137-145) mmol/L Potassium 4.3 (3.5-5.1) mmol/L Chloride 104 (98-107) mmol/L Carbon Dioxide 27 (22-30) mmol/L Anion Gap 12 mmol/L BUN 20 (9-20) mg/dL Creatinine 0.94 (0.66-1.25) mg/dL Est GFR (CKD-EPI)AfAm >90 (>60 ml/min/1.73 sqM) Est GFR (CKD-EPI)NonAf 89 (>60 ml/min/1.73 sqM) Glucose 248 H (74-99) mg/dL Calcium 9.2 (8.4-10.2) mg/dL Total Bilirubin 0.6 (0.2-1.3) mg/dL AST 37 (17-59) U/L ALT 30 (21-72) U/L Alkaline Phosphatase 96 (38-126) U/L Total Protein 7.6 (6.3-8.2) g/dL Albumin 4.2 (3.5-5.0) g/dL Amylase 60 (30-110) U/L Lipase 411 H (23-300) U/L Urine Color Yellow Urine Appearance Clear (Clear) Urine pH 5.5 (5.0-8.0) Ur Specific [place] 1.024 (1.001-1.035) Urine Protein 1+ H (Negative) Urine Glucose (UA) Trace H (Negative) Urine Ketones Trace H (Negative) Urine Blood Negative (Negative) Urine Nitrite Negative (Negative) Urine Bilirubin Negative (Negative) Urine Urobilinogen <2.0 (<2.0) mg/dL Ur Leukocyte Esterase Negative (Negative) Urine WBC 3 (0-5) /hpf Hyaline Casts 44 H (0-2) /lpf Urine Mucus Many H (None) /hpf Urine Opiates Screen Detected H (NotDetected) Ur Oxycodone Screen Not Detected (NotDetected) Urine Methadone Screen Not Detected (NotDetected) Ur Propoxyphene Screen Not Detected (NotDetected) Ur Barbiturates Screen Not Detected (NotDetected) U Tricyclic Antidepress Not Detected (NotDetected) Ur Phencyclidine Scrn Not Detected (NotDetected) Ur Amphetamines Screen Detected H (NotDetected) U Methamphetamines Scrn Not Detected (NotDetected) U Benzodiazepines Scrn Not Detected (NotDetected) Urine Cocaine Screen Not Detected (NotDetected) U Marijuana (THC) Screen Detected H (NotDetected) Disposition <Wily Zamora M - Last Filed: 01/21/18 14:18> <Beth Us P - Last Filed: 01/21/18 23:17> Is patient prescribed a controlled substance at d/c from ED?: No Decision to Admit Reason: Admit from EC Decision Date: 01/22/18 Decision Time: 12:51 <Zay Soriano - Last Filed: 01/22/18 12:51> Clinical Impression: Suicidal ideation, Depression Disposition: ADMITTED IP TO THIS [facility] Condition: Stable Referrals: Rubi Ruiz MD [Primary Care Provider] - 1-2 days
[2018-01-21 14:31] LABS: Basophils % (A) 1 %; Eosinophils # (A) 0.2 k/uL (0-0.7); Eosinophils % (A) 4 %; HGB 17.3 gm/dL (13.0-17.5); Lymphocytes # (A) 1.9 k/uL (1.0-4.8); Lymphocytes % (A) 35 %; MCH 30.9 pg (25.0-35.0); MCHC 33.8 g/dL (31.0-37.0); MCV 91.3 fL (80.0-100.0); Mean Platelet Volume 7.1; Monocytes # (A) 0.3 k/uL (0-1.0); Monocytes % (A) 6 %; Neutrophils # (A) 2.8 k/uL (1.3-7.7); Neutrophils % (A) 50 %; Platelet Count 309 k/uL (150-450); RBC 5.58 m/uL (4.30-5.90); RDW 12.8 % (11.5-15.5); WBC 5.5 k/uL (3.8-10.6)
[2018-01-21 14:37] LABS: Appearance,Urine Clear (Clear); Bilirubin,Urine Negative (Negative); Blood,Urine Negative (Negative); Color,Urine Yellow; Glucose,Urine (UA) Trace (Negative); Hyaline Casts,Urine 44 /lpf (0-2); Ketones,Urine Trace (Negative); Leukocyte Esterase,Urine Negative (Negative); Mucus,Urine Many /hpf; Nitrite,Urine Negative (Negative); PH, Urine 5.5 (5.0-8.0); Protein,Urine 1+ (Negative); Specific Gravity,Urine 1.024 (1.001-1.035); Urobilinogen,Urine <2.0 mg/dL (<2.0); WBC,Urine 3 /hpf (0-5)
[2018-01-21 14:44] LABS: ALT 30 U/L (21-72); AST 37 U/L (17-59); Albumin 4.2 g/dL (3.5-5.0); Alkaline Phosphatase 96 U/L (38-126); Amylase 60 U/L (30-110); Anion Gap 12 mmol/L; Blood Urea Nitrogen 20 mg/dL (9-20); Calcium 9.2 mg/dL (8.4-10.2); Carbon Dioxide 27 mmol/L (22-30); Chloride 104 mmol/L (98-107); Glucose 248 mg/dL (74-99); Lipase 411 U/L (23-300); Potassium 4.3 mmol/L (3.5-5.1); Sodium 143 mmol/L (137-145); Total Bilirubin 0.6 mg/dL (0.2-1.3); Total Protein 7.6 g/dL (6.3-8.2)
[2018-01-21 14:47] LABS: Amphetamine Screen,Urine Detected (NotDetected); Barbiturate Screen,Urine Not Detected (NotDetected); Benzodiazepines Screen,Urine Not Detected (NotDetected); Cocaine Screen,Urine Not Detected (NotDetected); Methadone Screen, Urine Not Detected (NotDetected); Opiate Screen,Urine Detected (NotDetected); Oxycodone Screen, Urine Not Detected (NotDetected); Phencyclidine Screen,Urine Not Detected (NotDetected); Tricyclic Antidepressant,Urine Not Detected (NotDetected); Urn Cannabinoid Scrn Detected (NotDetected)
[2018-01-21] MEDS: SODIUM CHLORIDE 0.9% 1,000 ML IV SCH (17:13)
[2018-01-22] MEDS ORDERED: LORazepam 1 MG TAB PO STA ×2 (02:20→12:17)
[2018-01-22] MEDS: HYDROcodone/APAP 10-325MG 1 EACH TAB PO SCH ×2 (02:47→20:58)
[2018-01-22] MEDS: amLODIPine 5 MG TAB PO SCH ×2 (02:47→09:02)
[2018-01-22] MEDS ORDERED: LORazepam 2 MG/ML INJ IV PRN ×3 (12:49)
[2018-01-22] MEDS ORDERED: THIAMINE 100 MG/ML 2 ML VIAL IM STA (12:49)
[2018-01-22] MEDS ORDERED: ZIPRASIDONE 20 MG VIAL IM PRN (13:46)
[2018-01-22] MEDS ORDERED: MAG HYDROX/AL HYDROX/SIMETH 30 ML CUP PO PRN (13:46)
[2018-01-22] MEDS ORDERED: ACETAMINOPHEN TAB 325 MG TAB PO PRN (13:46)
[2018-01-22] MEDS ORDERED: MAGNESIUM HYDROXIDE 2,400 MG/10 ML CUP PO PRN (13:46)
[2018-01-22 15:08] VITALS: BMI 23.3
[2018-01-22] MEDS: HYDROcodone/APAP 5-325MG 1 EACH TAB PO PRN (15:53)
[2018-01-22] MEDS: LORazepam 1 MG TAB PO PRN (15:53)
[2018-01-22] MEDS ORDERED: THIAMINE 100 MG TAB PO SCH (17:00)
[2018-01-22] MEDS: THIAMINE 100 MG TAB PO SCH (19:07)
[2018-01-22] MEDS: ATORVASTATIN 20 MG TAB PO SCH (20:19)
[2018-01-22] MEDS: FAMOTIDINE 20 MG TAB PO SCH (20:19)
[2018-01-22] MEDS: SODIUM CHLORIDE 0.9% 1,000 ML IV SCH ×3 (20:58→22:13)
[2018-01-23] MEDS: THIAMINE 100 MG TAB PO SCH (08:30)
[2018-01-23] MEDS: MULTIVITAMINS, THERA 1 EACH TAB PO SCH (08:30)
[2018-01-23] MEDS: FAMOTIDINE 20 MG TAB PO SCH ×2 (08:30→20:33)
[2018-01-23] MEDS: amLODIPine 5 MG TAB PO SCH (08:30)
[2018-01-23] MEDS: LORazepam 1 MG TAB PO PRN ×3 (08:31→20:36)
[2018-01-23] MEDS ORDERED: amLODIPine 5 MG TAB PO SCH (09:00)
--- NOTE | 2018-01-23 12:14 | P.HP ---
Psychiatric H&P - . H&P Date: 01/23/18 History & Physical: Allergies Allergy/AdvReac Type Severity Reaction Status Date / Time No Known Allergies Allergy Verified 01/21/18 14:28 Vital Signs Temp 98.3 F 01/23/18 06:55 Pulse 118 H 01/23/18 09:02 Resp 20 01/23/18 09:02 BP 133/84 01/23/18 09:02 Pulse Ox 97 01/22/18 07:35 Intake & Output 01/22/18 01/23/18 01/23/18 18:59 06:59 18:59 Weight 78.2 kg Laboratory Last Values WBC 5.5 k/uL (3.8-10.6) 01/21/18 14:20 RBC 5.58 m/uL (4.30-5.90) 01/21/18 14:20 Hgb 17.3 gm/dL (13.0-17.5) 01/21/18 14:20 Hct 51.0 % (39.0-53.0) 01/21/18 14:20 MCV 91.3 fL (80.0-100.0) 01/21/18 14:20 MCH 30.9 pg (25.0-35.0) 01/21/18 14:20 MCHC 33.8 g/dL (31.0-37.0) 01/21/18 14:20 RDW 12.8 % (11.5-15.5) 01/21/18 14:20 Plt Count 309 k/uL (150-450) 01/21/18 14:20 Neutrophils % 50 % 01/21/18 14:20 Lymphocytes % 35 % 01/21/18 14:20 Monocytes % 6 % 01/21/18 14:20 Eosinophils % 4 % 01/21/18 14:20 Basophils % 1 % 01/21/18 14:20 Neutrophils # 2.8 k/uL (1.3-7.7) 01/21/18 14:20 Lymphocytes # 1.9 k/uL (1.0-4.8) 01/21/18 14:20 Monocytes # 0.3 k/uL (0-1.0) 01/21/18 14:20 Eosinophils # 0.2 k/uL (0-0.7) 01/21/18 14:20 Basophils # 0.0 k/uL (0-0.2) 01/21/18 14:20 Sodium 143 mmol/L (137-145) 01/21/18 14:20 Potassium 4.3 mmol/L (3.5-5.1) 01/21/18 14:20 Chloride 104 mmol/L (98-107) 01/21/18 14:20 Carbon Dioxide 27 mmol/L (22-30) 01/21/18 14:20 Anion Gap 12 mmol/L 01/21/18 14:20 BUN 20 mg/dL (9-20) 01/21/18 14:20 Creatinine 0.94 mg/dL (0.66-1.25) 01/21/18 14:20 Est GFR (CKD-EPI)AfAm >90 (>60 ml/min/1.73 sqM) 01/21/18 14:20 Est GFR (CKD-EPI)NonAf 89 (>60 ml/min/1.73 sqM) 01/21/18 14:20 Glucose 248 mg/dL (74-99) H 01/21/18 14:20 Calcium 9.2 mg/dL (8.4-10.2) 01/21/18 14:20 Total Bilirubin 0.6 mg/dL (0.2-1.3) 01/21/18 14:20 AST 37 U/L (17-59) 01/21/18 14:20 ALT 30 U/L (21-72) 01/21/18 14:20 Alkaline Phosphatase 96 U/L (38-126) 01/21/18 14:20 Total Protein 7.6 g/dL (6.3-8.2) 01/21/18 14:20 Albumin 4.2 g/dL (3.5-5.0) 01/21/18 14:20 Triglycerides 591 mg/dL (<150) H 01/21/18 14:20 Cholesterol 149 mg/dL (<200) 01/21/18 14:20 LDL Cholesterol, Calc mg/dL (0-99) 01/21/18 14:20 HDL Cholesterol 58 mg/dL (40-60) 01/21/18 14:20 Amylase 60 U/L (30-110) 01/21/18 14:20 Lipase 411 U/L (23-300) H 01/21/18 14:20 TSH 1.560 mIU/L (0.465-4.680) 01/21/18 14:20 Urine Color Yellow 01/21/18 14:20 Urine Appearance Clear (Clear) 01/21/18 14:20 Urine pH 5.5 (5.0-8.0) 01/21/18 14:20 Ur Specific [place] 1.024 (1.001-1.035) 01/21/18 14:20 Urine Protein 1+ (Negative) H 01/21/18 14:20 Urine Glucose (UA) Trace (Negative) H 01/21/18 14:20 Urine Ketones Trace (Negative) H 01/21/18 14:20 Urine Blood Negative (Negative) 01/21/18 14:20 Urine Nitrite Negative (Negative) 01/21/18 14:20 Urine Bilirubin Negative (Negative) 01/21/18 14:20 Urine Urobilinogen <2.0 mg/dL (<2.0) 01/21/18 14:20 Ur Leukocyte Esterase Negative (Negative) 01/21/18 14:20 Urine WBC 3 /hpf (0-5) 01/21/18 14:20 Hyaline Casts 44 /lpf (0-2) H 01/21/18 14:20 Urine Mucus Many /hpf (None) H 01/21/18 14:20 Urine Opiates Screen Detected (NotDetected) H 01/21/18 14:20 Ur Oxycodone Screen Not Detected (NotDetected) 01/21/18 14:20 Urine Methadone Screen Not Detected (NotDetected) 01/21/18 14:20 Ur Propoxyphene Screen Not Detected (NotDetected) 01/21/18 14:20 Ur Barbiturates Screen Not Detected (NotDetected) 01/21/18 14:20 U Tricyclic Antidepress Not Detected (NotDetected) 01/21/18 14:20 Ur Phencyclidine Scrn Not Detected (NotDetected) 01/21/18 14:20 Ur Amphetamines Screen Detected (NotDetected) H 01/21/18 14:20 U Methamphetamines Scrn Not Detected (NotDetected) 01/21/18 14:20 U Benzodiazepines Scrn Not Detected (NotDetected) 01/21/18 14:20 Urine Cocaine Screen Not Detected (NotDetected) 01/21/18 14:20 U Marijuana (THC) Screen Detected (NotDetected) H 01/21/18 14:20 01/23/18 12:05 IDENTIFYING DATA: 58-year-old male patient HPI: Patient admitted to the inpatient psychiatric unit [facility] with recent depression. This is been depressed for the last couple weeks. Says he got off of Vyvanse and Xanax which are being prescribed from his doctor, says he was coming off of these because he was taking too many narcotics and things weren't right. He states that he tried Vistaril which seemed to work for 2 days and then it seemed to stop working and then he started drinking. Says when he came into the hospital he had thoughts of suicide he says he was going to go to [employer] and buy a shotgun. He had seen his counselor and was sent to the hospital. He admits to being a worrier with a history of panic attacks. PAST PSYCHIATRIC HISTORY: Patient states that he has had some episodes of extreme highs. He also has had depressive episodes. He does see a counselor and through [facility] once every 2 weeks and had been seeing Dr. Vera for his psychiatrist but was supposed to see Courtney Fu through [facility]. He had recently been on Depakote it sounds like but made him tired all the time. He has never been on Celexa. He does also give a history of ADHD. He helpful has been on Abilify in the past which she liked. He has had 2 prior inpatient psychiatric hospitalizations. He has never had any suicide attempts. PMH: Pain in lower extremities. Recent epididymitis with for which he was on an antibiotic. Recently diagnosed scabies for which he was taking a lotion. ALLERGIES: No known ALLERGIES MEDICATIONS: Tylenol when necessary, Maalox when necessary, Norvasc, Lipitor, vitamin D2, Pepcid, [place] when necessary, Ativan when necessary, milk of magnesia when necessary, Theragran, thiamine, Geodon when necessary CHEMICAL DEPENDENCY HISTORY: Reports that he has been drinking for the last 2 weeks. He's had sobriety in spurts throughout his life. He did go to [place] 6 years ago. He says he is interested in a sober living house. He also states that he would consider going back to [place]. He has used marijuana about a few times a week. FAMILY PSYCHIATRIC HISTORY: States that he is adopted, his biological mom and brother killed themselves. FAMILY CHEMICAL DEPENDENCY HISTORY: Not known at this time. SOCIAL HISTORY: Currently living with friends in the home. 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 He has been 3 times and 3 times. He does not have any children. MENTAL STATUS EXAM: He is alert and cooperative with the interview. His speech is fluent, not rapid or pressured. Thought processes organized. His mood is described as "it was good." He then reports he had some diarrhea. He admitted to having some withdrawal symptoms of shakiness. He denies any current thoughts of harm to self or others. He does not show any active evidence of psychosis. He does not show any agitation. Cognitively appears to be grossly intact. I do not note any significant memory disturbance or disorientation. His insight is adequate, judgment shows evidence of recent impairment. STRENGTHS/WEAKNESSES: Strengthsseeking treatment; weaknessescoping skills, substance use INTELLECTUAL FUNCTIONING: Average IMPRESSIONS: Bipolar disorder, depressed; generalized anxiety disorder; rule out panic disorder; history of ADHD; alcohol use disorder; rule out cannabis use disorder PLAN: Patient will be admitted to the inpatient psychiatric unit [facility] voluntary basis. He will placed on SP 15 minute precautions. Baseline laboratory workup will be done and medical consultation will be ordered. He will be placed on Ativan and the frequency currently will be increased due to withdrawal symptoms. We will continue to monitor his vital signs. We will initiate Celexa 20 more grams daily for depression and anxiety. We'll also reinitiated Abilify which she's been on the past at 5 mg daily for assistance with mood stability. He'll participate in group and activity therapies. Medical consultation is pending regarding recent issues of epididymitis and scabies. Estimated length of stay is 3-5 days. Prognosis is guarded.
[2018-01-23] MEDS: ARIPiprazole 5 MG TAB PO SCH (12:34)
[2018-01-23] MEDS: CITALOPRAM HYDROBROMIDE 20 MG TAB PO SCH (12:34)
[2018-01-23] MEDS: ATORVASTATIN 20 MG TAB PO SCH (20:33)
[2018-01-23] MEDS: HYDROcodone/APAP 5-325MG 1 EACH TAB PO PRN (20:36)
--- NOTE | 2018-01-23 20:50 | P.CONS ---
History of Present Illness - History of Present Illness This is a pleasant 58 years old male with past medical history of hypertension, hernia and degenerative arthritis, status post hernia repair. History of bipolar, depression and ADHD. He is currently every day smoker he is been admitted to the psych service for Bipolar disorder, depression and generalized anxiety disorder Patient telling me he has a rash in his lower extremity, scant, he has been treated before for scabies and patient states is fading away and he feels better as and that the rashes is in its late stages. Also patient states he has history of right scrotal cyst which he follow for that with his PCP Dr. Xavier and he went to the emergency room at [facility] where they did an ultrasound for him, give him 1 antibiotic shot and refer him to urologist. Patient states that he has an appointment with urologist at [facility] where they can take his insurance in 1 or 2 weeks, he does not know exactly when. But he states that he has contact information and appointment time His house and that he is going to follow-up with the. On admission patient was noticed to be hyperglycemic. We'll check hemoglobin A1c. Review of Systems CONSTITUTIONAL: No fever, no malaise, no fatigue. HEENT: No recent visual problems or hearing problems. Denied any sore throat. CARDIOVASCULAR: No orthopnea, PND, no palpitations, no syncope. PULMONARY: No shortness of breath, no cough, no hemoptysis. GASTROINTESTINAL: No diarrhea, no nausea, no vomiting, no abdominal pain. Normoactive bowel sounds. NEUROLOGICAL: No headaches, no weakness, no numbness. HEMATOLOGICAL: Denies any bleeding or petechiae. GENITOURINARY: Denies any burning micturition, frequency, or urgency. MUSCULOSKELETAL/RHEUMATOLOGICAL: Denies any joint pain, swelling, or any muscle pain. ENDOCRINE: Denies any polyuria or polydipsia. Past Medical History Past Medical History: Deep Vein Thrombosis (DVT), Hypertension Additional Past Medical History / Comment(s): Hernia, degenerative arthritis History of Any Multi-Drug Resistant Organisms: None Reported Past Surgical History: Hernia Repair, Orthopedic Surgery Additional Past Surgical History / Comment(s): Umbilical hernia repair, I&D of the left foot between the fourth and fifth toes 2016 Past Anesthesia/Blood Transfusion Reactions: No Reported Reaction Past Psychological History: ADD/ADHD, Bipolar, Depression Smoking Status: Current every day smoker Past Alcohol Use History: Abuse, Daily, Heavy Additional Past Alcohol Use History / Comment(s): Pt. reports drinking a fifth and ahalf daily Past Drug Use History: Marijuana Additional Drug Use History / Comment(s): Patient states that he smokes about quarter of a gram daily. - Past Family History Father Additional Family Medical History / Comment(s): Biological father in his 60s from complications of an ankle surgery. Mother Additional Family Medical History / Comment(s): Biological mother in her 50s from suicide. Sister(s) Additional Family Medical History / Comment(s): He has 8 sisters with no major medical problems. Patient does not have any children. Medications and Allergies Home Medications Medication Instructions Recorded Confirmed Type Atorvastatin [Lipitor] 20 mg PO HS 01/21/18 01/21/18 History Divalproex ER [Depakote ER] 500 mg PO HS 01/21/18 01/21/18 History Ergocalciferol (Vitamin D2) 50,000 unit PO Q7D 01/21/18 01/21/18 History [Vitamin D2] HYDROcodone/APAP 10-325MG [[place] 1 tab PO TID 01/21/18 01/21/18 History 10-325] Lisdexamfetamine Dimesylate 30 mg PO QAM 01/21/18 01/21/18 History [Vyvanse] Multivitamins, Thera [Multivitamin 1 tab PO DAILY 01/21/18 01/21/18 History (formulary)] Pregabalin [Lyrica] 150 mg PO BID 01/21/18 01/21/18 History Ranitidine HCl [Zantac] 150 mg PO BID 01/21/18 01/21/18 History amLODIPine [Norvasc] 5 mg PO DAILY 01/21/18 01/21/18 History hydrOXYzine PAMOATE [Vistaril] 25 mg PO DAILY 01/21/18 01/21/18 History hydrOXYzine PAMOATE [Vistaril] 50 mg PO HS 01/21/18 01/21/18 History Allergies Allergy/AdvReac Type Severity Reaction Status Date / Time No Known Allergies Allergy Verified 01/21/18 14:28 Physical Exam Vitals: Vital Signs Temp Pulse Resp BP 01/23/18 15:07 103 H 18 156/89 01/23/18 09:02 118 H 20 133/84 01/23/18 06:55 98.3 F 99 14 152/90 GENERAL: The patient is alert and oriented x3, not in any acute distress. Well developed, well nourished. HEENT: Pupils are round and equally reacting to light. EOMI. No scleral icterus. No conjunctival pallor. Normocephalic, atraumatic. No pharyngeal erythema. No thyromegaly. CARDIOVASCULAR: S1 and S2 present. No murmurs, rubs, or gallops. PULMONARY: Chest is clear to auscultation, no wheezing or crackles. ABDOMEN: Soft, nontender, nondistended, normoactive bowel sounds. No palpable organomegaly. Genitourinary examination after patient gave verbal permission: Scrotal cyst, melena felt on the right side. With no tenderness, no redness MUSCULOSKELETAL: No joint swelling or deformity. EXTREMITIES: No cyanosis, clubbing, or pedal edema. NEUROLOGICAL: Gross neurological examination did not reveal any focal deficits. SKIN: No rashes. Results CBC & Chem 7: 01/21/18 14:20 01/21/18 14:20 Labs: Abnormal Lab Results - Last 24 Hours (Table) 01/21/18 Range/Units 14:20 Triglycerides 591 H (<150) mg/dL Assessment and Plan Assessment: Hyperglycemia, rule out diabetes mellitus Right scrotal cyst, patient states he will follow-up with urologist as outpatient Mild rash over the lower extremity, resolving as per patient Plan: Recommended to continue with same treatment. Continue with symptomatic treatment. Resume home medication. Monitor lytes and vitals. Check hemoglobin A1c. DVT and GI prophylaxis. Further recommendations based on the clinical course of the patient. Patient was instructed to follow up with his urologist and PCP as recommended. We recommend to the patient to follow-up with his PCP in one week after discharge DVT prophylaxis: Patient is mobile, no need for anticoagulation as the risks more than benefits GI prophylaxis: No needed treatment of his bipolar and other psych illnesses as per psych team Thank you for consulting us please feel free to contact us for any further question or clarification
[2018-01-24] MEDS: LORazepam 1 MG TAB PO PRN ×3 (02:59→21:06)
[2018-01-24] MEDS: CITALOPRAM HYDROBROMIDE 20 MG TAB PO SCH (07:44)
[2018-01-24] MEDS: FAMOTIDINE 20 MG TAB PO SCH ×2 (07:44→21:06)
[2018-01-24] MEDS: ARIPiprazole 5 MG TAB PO SCH (07:44)
[2018-01-24] MEDS: amLODIPine 5 MG TAB PO SCH (07:44)
[2018-01-24] MEDS: HYDROcodone/APAP 5-325MG 1 EACH TAB PO PRN ×2 (07:45→15:27)
[2018-01-24 10:30] LABS: Hemoglobin A1C 7.1 % (4.0-6.0)
--- NOTE | 2018-01-24 11:00 | P.PN ---
Progress Note - Text Interval history: The patient is found in his room and he follows me to an interview room. He reports that his mood is better today. He presented with suicidal ideation. He was evaluated by Dr. Jones and that note was reviewed. The patient has been started on Celexa and restarted on Abilify. The patient has no questions or concerns regarding either medication. He reports that he was drinking heavily prior to coming in the hospital. We are monitoring his vital signs for any signs of alcohol withdrawal. He states he's been attending groups and has been able to eat. Mental status exam: The patient reports his mood is better today he still has feelings of depression and anxiety. He still has some hopelessness thinking. He reports no thoughts of harming others. He is endorsing no auditory or visual hallucinations or any specific delusions. There is no observed evidence of psychosis. He does not demonstrate any tangential thinking loose associations or flight of ideas. He does not appear hypomanic or manic. Insight and judgment grossly intact. He demonstrates no abnormal involuntary movements. He demonstrates no verbal or physical aggressiveness. He is dressed in his own clothing he has a disheveled appearance affect is constricted. Plan: The patient will continue on his current medications. We will monitor him for safety and encourage his participation in the milieu. He states his plan is to gain placement in a sober living facility through [facility].
[2018-01-24] MEDS: MULTIVITAMINS, THERA 1 EACH TAB PO SCH (12:08)
[2018-01-24] MEDS: THIAMINE 100 MG TAB PO SCH (12:08)
[2018-01-24] MEDS: FOLIC ACID 1 MG TAB PO SCH (12:08)
[2018-01-24] MEDS: ATORVASTATIN 20 MG TAB PO SCH (21:06)
[2018-01-25] MEDS: HYDROcodone/APAP 5-325MG 1 EACH TAB PO PRN ×2 (00:04→13:27)
[2018-01-25] MEDS: LORazepam 1 MG TAB PO PRN ×2 (03:05→13:29)
[2018-01-25] MEDS: CITALOPRAM HYDROBROMIDE 20 MG TAB PO SCH (08:27)
[2018-01-25] MEDS: FAMOTIDINE 20 MG TAB PO SCH ×2 (08:27→20:27)
[2018-01-25] MEDS: amLODIPine 5 MG TAB PO SCH (08:27)
[2018-01-25] MEDS: ARIPiprazole 5 MG TAB PO SCH (08:27)
--- NOTE | 2018-01-25 10:15 | P.PN ---
Progress Note - Text Interval history: The patient is found in his room he follows me to an interview room. He indicates that his mood is improving. He states he did have some difficulty with sleep last evening. He feels he is doing well with alcohol withdrawal symptoms. CIWA scores have been 0 but he continues to use the Ativan. Appetite been stable for the most part he has been attending groups. He again is hoping to find placement with [facility]. He does not wish to participate in inpatient chemical dependency treatment. He has no questions or concerns regarding his psychotropic medication he is indicating no side effects. Mental status exam: The patient is alert he is dressed in his own clothing hygiene and grooming are adequate. Speech is fluent spontaneous nonpressured. He reports his mood is better. Affect is congruent and appropriately expressive. He is reporting no acute suicidal or homicidal ideation intent or plan. He is endorsing no auditory or visual hallucinations or any specific delusions. There is no observed evidence of psychosis. He demonstrates no tangential thinking loose associations or flight of ideas there is no evidence of hypomania or jo ann. Insight and judgment improving. He demonstrates no verbal or physical aggressiveness. He demonstrates no abnormal involuntary repetitive movements. He is oriented to person place and date. Plan: The patient is clinically stabilizing he will likely be appropriate for discharge in the next 1-2 days. We will confer with social work regarding his placement options. We will continue to monitor him for safety and encourage full participation in the milieu. Vital signs reviewed.
[2018-01-25] MEDS: THIAMINE 100 MG TAB PO SCH (13:22)
[2018-01-25] MEDS: FOLIC ACID 1 MG TAB PO SCH (13:22)
[2018-01-25] MEDS: MULTIVITAMINS, THERA 1 EACH TAB PO SCH (13:22)
[2018-01-25 14:08] VITALS: RESP 16
[2018-01-25 18:00] LABS: Glucose,Whole Blood 196 mg/dL (75-99)
[2018-01-25] MEDS: INSULIN ASPART 100 UNIT/ML 1 ML 10 ML VIAL SQ SCH ×2 (18:07→20:27)
[2018-01-25 19:55] LABS: Glucose,Whole Blood 217 mg/dL (75-99)
[2018-01-25] MEDS: ATORVASTATIN 20 MG TAB PO SCH (20:27)
[2018-01-25] MEDS ORDERED: MELATONIN 5 MG TABLET PO SCH (21:00)
[2018-01-26] MEDS: LORazepam 1 MG TAB PO PRN ×2 (00:30→11:59)
[2018-01-26] MEDS: HYDROcodone/APAP 5-325MG 1 EACH TAB PO PRN ×2 (00:30→08:40)
[2018-01-26 06:35] LABS: Glucose,Whole Blood 198 mg/dL (75-99)
[2018-01-26 06:49] VITALS: BP 125/80; PULSE 82; TEMP 97.6
[2018-01-26] MEDS: INSULIN ASPART 100 UNIT/ML 1 ML 10 ML VIAL SQ SCH ×2 (08:00→13:11)
[2018-01-26] MEDS: amLODIPine 5 MG TAB PO SCH (08:02)
[2018-01-26] MEDS: CITALOPRAM HYDROBROMIDE 20 MG TAB PO SCH (08:02)
[2018-01-26] MEDS: FAMOTIDINE 20 MG TAB PO SCH (08:02)
[2018-01-26] MEDS: ARIPiprazole 5 MG TAB PO SCH (08:02)
--- NOTE | 2018-01-26 10:06 | P.DS ---
Providers Date of admission: 01/22/18 13:38 Expected date of discharge: 01/26/18 Attending physician: Amadeo Algeria Consults: 01/22/18 13:46 Consult Physician Routine Consulting Provider: Víctor Pinzon Consult Reason/Comments: H&P for mental health Admission Do you want consulting provider notified?: Yes Primary care physician: Rubi Ruiz - Discharge Diagnosis(es) (1) Bipolar disorder, now depressed Current Visit: Yes Status: Acute Priority: High (2) Generalized anxiety disorder Current Visit: Yes Status: Acute Priority: Medium (3) Alcohol use disorder Current Visit: Yes Status: Acute Priority: High Hospital Course: Brief summary of admission note: This patient is a 58-year-old male who was admitted to the mental health unit through the emergency room with symptoms of depression and suicidal ideation. He does have an established history of an alcohol use disorder and had been drinking heavily prior to this admission. He had presented to his outpatient therapist and was directed to go to the hospital. For full detail please refer to the psychiatric evaluation completed by Dr. Jones on 01/23/2018. Summary of hospital course: The patient was initially evaluated by Dr. Jones and Celexa 20 mg daily was started and Abilify 5 mg daily was restarted. The patient was monitor for alcohol withdrawal symptoms and Ativan was used as needed. The patient did sign in voluntarily. He has been cooperative during his hospitalization. He has attended groups he has been showering and eating meals. He has consistently stated he does not want to go to inpatient chemical dependency treatment. He described a desire to go to [facility] to find a sober living environment. He states he typically does not go to but is willing to do so upon discharge. He plans on following up with his therapist and nurse practitioner through [facility]. He describes no side effects or concerns with the Celexa or Abilify. We discussed possibly using naltrexone for alcohol cravings but he continues to use [place] for pain management. We discussed that as an outpatient he should consider tapering off of the [place] and utilizing the naltrexone. He states he will give that consideration. The patient demonstrated no agitated behavior. He reports hopeful thinking and no longer feels suicidal. In reviewing his laboratory studies his triglycerides and blood sugar was elevated and he is instructed to follow-up with his primary care physician upon discharge for further evaluation. Mental status exam: The patient is a pleasant cooperative male appearing his stated age. Eye contact is appropriate speech is fluent spontaneous nonpressured. He reports his mood is improved he is reporting no hopelessness thinking no suicidal ideation intent or plan. He is reporting no homicidal ideation intent or plan. He describes no auditory or visual hallucinations or any specific delusions and there is no observed evidence of psychosis. He demonstrates no tangential thinking loose associations or flight of ideas and does not appear hypomanic or manic. He demonstrates no abnormal involuntary movements he demonstrates no verbal or physical aggressiveness. He readily engages in conversation affect is euthymic in appearance and he is able to demonstrate an appropriate range of expression. He is oriented to person place and date. He spontaneously describes several examples of future oriented thinking. Impressions 1. Bipolar disorder most recent depressed, generalized anxiety disorder, alcohol use disorder Plan: The patient will be discharged mental health unit today to return to his own residence. He will continue seeking out a sober living placement with [facility]. He will follow up with [facility] specifically his individual therapist and nurse practitioner. He will continue on Celexa 20 mg daily and Abilify 2 mg daily. He is instructed to abstain from all alcohol use marijuana and any other illicit drug. We discussed that these substances could interfere with the efficacy of his medication and they could also elevate his safety risk. At this time there is no imminent safety risk he is appropriate for transition outpatient care. He does not require continued hospitalization on an involuntary basis. Again he is instructed to follow up with his primary care physician upon discharge regarding his lipid panel and blood sugar. Patient Condition at Discharge: Stable Plan - Discharge Summary New Discharge Prescriptions: New ARIPiprazole [Abilify] 5 mg PO DAILY #30 tab Citalopram Hydrobromide [CeleXA] 20 mg PO DAILY #30 tab HYDROcodone/APAP 5-325MG [[place] 5-325] 1 each PO Q8HR PRN tab PRN Reason: Pain Melatonin 5 mg PO HS #30 tablet Continue Atorvastatin [Lipitor] 20 mg PO HS Multivitamins, Thera [Multivitamin (formulary)] 1 tab PO DAILY amLODIPine [Norvasc] 5 mg PO DAILY Ranitidine HCl [Zantac] 150 mg PO BID Ergocalciferol (Vitamin D2) [Vitamin D2] 50,000 unit PO Q7D Discontinued Pregabalin [Lyrica] 150 mg PO BID Lisdexamfetamine Dimesylate [Vyvanse] 30 mg PO QAM Divalproex ER [Depakote ER] 500 mg PO HS HYDROcodone/APAP 10-325MG [[place] 10-325] 1 tab PO TID hydrOXYzine PAMOATE [Vistaril] 25 mg PO DAILY hydrOXYzine PAMOATE [Vistaril] 50 mg PO HS Discharge Medication List Atorvastatin [Lipitor] 20 mg PO HS 01/21/18 [History] Ergocalciferol (Vitamin D2) [Vitamin D2] 50,000 unit PO Q7D 01/21/18 [History] Multivitamins, Thera [Multivitamin (formulary)] 1 tab PO DAILY 01/21/18 [History ] Ranitidine HCl [Zantac] 150 mg PO BID 01/21/18 [History] amLODIPine [Norvasc] 5 mg PO DAILY 01/21/18 [History] ARIPiprazole [Abilify] 5 mg PO DAILY #30 tab 01/26/18 [Rx] Citalopram Hydrobromide [CeleXA] 20 mg PO DAILY #30 tab 01/26/18 [Rx] HYDROcodone/APAP 5-325MG [[place] 5-325] 1 each PO Q8HR PRN tab 01/26/18 [Rx] Melatonin 5 mg PO HS #30 tablet 01/26/18 [Rx] Follow up Appointment(s)/Referral(s): Rubi Ruiz MD [Primary Care Provider] - 1-2 days
[2018-01-26] MEDS ORDERED: metFORMIN 500 MG TAB PO SCH (11:45)
[2018-01-26] MEDS: THIAMINE 100 MG TAB PO SCH (12:02)
[2018-01-26] MEDS: FOLIC ACID 1 MG TAB PO SCH (12:02)
[2018-01-26] MEDS: MULTIVITAMINS, THERA 1 EACH TAB PO SCH (12:02)
[2018-01-26 12:54] LABS: Glucose,Whole Blood 203 mg/dL (75-99)
--- NOTE | 2018-01-26 21:52 | P.PN ---
Subjective This is a pleasant 58 years old male with past medical history of hypertension, hernia and degenerative arthritis, status post hernia repair. History of bipolar, depression and ADHD. He is currently every day smoker he is been admitted to the psych service for Bipolar disorder, depression and generalized anxiety disorder Patient telling me he has a rash in his lower extremity, scant, he has been treated before for scabies and patient states is fading away and he feels better as and that the rashes is in its late stages. Also patient states he has history of right scrotal cyst which he follow for that with his PCP Dr. Xavier and he went to the emergency room at [facility] where they did an ultrasound for him, give him 1 antibiotic shot and refer him to urologist. Patient states that he has an appointment with urologist at [facility] where they can take his insurance in 1 or 2 weeks, he does not know exactly when. But he states that he has contact information and appointment time His house and that he is going to follow-up with the. On admission patient was noticed to be hyperglycemic. We'll check hemoglobin A1c. 01/26/18 pt Hb a1c is 7.1, pt has DM, type 2, he is informed , started on metformin, prescription is provided for metformin, as well as glucomoter and accessories, appointment is made with his pcp in 2 days and asked to follow up with it , pt rash slightly worsened, and asked to f/u with pcp and he agrees, his scrotal cyst remaind asymptomatic and stable ,and pt will f/u with pcp and urologist also treatment of pscyh illnesses is by the primary team . Objective - Vital Signs Vital signs: Vital Signs Temp 97.6 F 01/26/18 06:48 Pulse 82 01/26/18 06:48 Resp 16 01/26/18 06:48 BP 125/80 01/26/18 06:48 Pulse Ox 97 01/22/18 07:35 Intake & Output 01/26/18 01/26/18 01/27/18 06:59 18:59 06:59 Weight 78.2 kg - Labs CBC & Chem 7: 01/21/18 14:20 01/21/18 14:20 Labs: Abnormal Lab Results - Last 24 Hours (Table) 01/26/18 01/26/18 Range/Units 06:13 12:50 POC Glucose (mg/dL) 198 H 203 H (75-99) mg/dL Assessment and Plan Assessment: Hyperglycemia, rule out diabetes mellitus Right scrotal cyst, patient states he will follow-up with urologist as outpatient Mild rash over the lower extremity, resolving as per patient Plan: Recommended to continue with same treatment. Continue with symptomatic treatment. Resume home medication. Monitor lytes and vitals. Check hemoglobin A1c. DVT and GI prophylaxis. Further recommendations based on the clinical course of the patient. Patient was instructed to follow up with his urologist and PCP as recommended. We recommend to the patient to follow-up with his PCP in one week after discharge DVT prophylaxis: Patient is mobile, no need for anticoagulation as the risks more than benefits GI prophylaxis: No needed treatment of his bipolar and other psych illnesses as per psych team Thank you for consulting us please feel free to contact us for any further question or clarification
[2018-01-28] MEDS ORDERED: ERGOCALCIFEROL 50,000 UNIT CAP PO SCH (09:00)
== END 2018-01-26 16:00 | disposition home or self-care (01) | DRG 885 ==
LOC: EC 13:51 → 3MHU 01-22 13:38
PROVIDERS: ADMIT Psychiatry & Neurology Psychiatry; ATTEND Psychiatry & Neurology Psychiatry
DX: F31.9 Bipolar disorder, unspecified (principal); F10.239 Alcohol dependence with withdrawal, unspecified; R45.851 Suicidal ideations; B86 Scabies; E11.65 Type 2 diabetes mellitus with hyperglycemia; F17.210 Nicotine dependence, cigarettes, uncomplicated; F41.0 Panic disorder [episodic paroxysmal anxiety]; F41.1 Generalized anxiety disorder; F90.9 Attention-deficit hyperactivity disorder, unspecified type; I10 Essential (primary) hypertension; L72.9 Follicular cyst of the skin and subcutaneous tissue, unspecified; Z79.899 Other long term (current) drug therapy; Z81.8 Family history of other mental and behavioral disorders; M19.90 Unspecified osteoarthritis, unspecified site
CPT/HCPCS: 36415; 80053; 80061; 80306; 81001; 82075; 82150; 83036; 83690; 84443; 85025; 96361; 96374; 99285

== ENCOUNTER → 2018-10-29 | Outpatient (CLI) | payer OTHER ==
--- NOTE | 2018-10-29 08:55 | MR ---
EXAMINATION TYPE: MR brain wo/w con DATE OF EXAM: 10/29/2018 8:42 AM COMPARISON: NONE HISTORY: Visual defect, Rule out brain lesion TECHNIQUE: Multiplanar, multiecho imaging of the brain was obtained with and without intravenous adm inistration of 8 mL intravenous Gadavist. FINDINGS: Midline structures are unremarkable. There is a normal craniocervical junction. Echoplanar diffusion imaging is normal. There is chronic mucosal thickening of the right maxillary sinus. There are normal vascular flow voids. The orbits are unremarkable. There is no evidence of a CP angle mass lesion. There are innumerable high signal lesions in the subcortical white matter in both cerebral hemisphere s there is no mass effect, midline shift or evidence of intracranial blood. Following intravenous administration of gadolinium, I do not see evidence of abnormal enhancement. IMPRESSION: 1. NO ACUTE INTRACRANIAL ABNORMALITY. 2. INNUMERABLE SUBCORTICAL FLAIR LESIONS. THE LARGEST ON THE RIGHT PARIETAL REGION MAY BE A CONGLOMER ATE LESION MEASURES 1.3 CM. NONSPECIFIC. A DIFFERENTIAL DIAGNOSIS WOULD INCLUDE DEMYELINATION, SMALL VESSEL DISEASE, MIGRAINE HEADACHES, HYPERTENSION AND LYME'S DISEASE. 3. CHRONIC RIGHT-SIDED MAXILLARY SINUS: DISEASE.
== END | disposition home or self-care (01) ==
LOC: RADMRIMAIN 07:59
PROVIDERS: ATTEND Ophthalmology
DX: G93.9 Disorder of brain, unspecified (principal); H53.483 Generalized contraction of visual field, bilateral; J32.0 Chronic maxillary sinusitis
CPT/HCPCS: 70553; A9585

== ENCOUNTER → 2019-01-30 | Outpatient (CLI) | payer OTHER ==
[2019-01-30 20:41] LABS: Total Protein,CSF 76 mg/dL (12-60)
[2019-01-30 21:28] LABS: Appearance,CSF Clear; CSF Tube Number 4; CSF Tube Volume 3; Nucleated Cells, CSF 3 u/L (0-5); Red Blood Cell,CSF 0 u/L (0-10)
[2019-02-02 14:17] LABS: IgG - CSF 4.5 mg/dL (0.0 - 3.4); IgG/Albumin Index (CSF) 0.51 (0.00 - 0.77); Immunoglobulin G 939 mg/dL (700 - 1600)
== END | disposition home or self-care (01) ==
LOC: LABWHC1 10:14
PROVIDERS: ATTEND Psychiatry & Neurology Pain Medicine
DX: R41.3 Other amnesia (principal); R90.82 White matter disease, unspecified
CPT/HCPCS: 36415; 81220; 82040; 82042; 82784; 83520; 83873; 83916; 84157; 87801; 88108; 89050

== ENCOUNTER → 2019-03-01 | Outpatient (CLI) | payer OTHER ==
[2019-03-01 13:43] LABS: Basophils % (A) 0 %; Eosinophils # (A) 0.3 k/uL (0-0.7); Eosinophils % (A) 4 %; HCT 44.2 % (39.0-53.0); HGB 15.1 gm/dL (13.0-17.5); Lymphocytes # (A) 1.7 k/uL (1.0-4.8); Lymphocytes % (A) 26 %; MCH 32.4 pg (25.0-35.0); MCHC 34.3 g/dL (31.0-37.0); MCV 94.5 fL (80.0-100.0); Mean Platelet Volume 7.2; Monocytes # (A) 0.3 k/uL (0-1.0); Monocytes % (A) 5 %; Neutrophils # (A) 3.9 k/uL (1.3-7.7); Neutrophils % (A) 62 %; Platelet Count 214 k/uL (150-450); RBC 4.67 m/uL (4.30-5.90); RDW 12.7 % (11.5-15.5); WBC 6.4 k/uL (3.8-10.6)
[2019-03-01 14:36] LABS: Erythrocyte Sedimentation Rate 4 mm/hr (0-15)
[2019-03-01 20:44] LABS: ALT 18 U/L (10-49); AST 19 U/L (14-35); Albumin/Globulin Ratio 2.27 (1.60-3.17); Alkaline Phosphatase 101 U/L (41-126); Bilirubin, Conjugated <0.20 mg/dL (0.20-0.40); Calcium 10.1 mg/dL (8.7-10.3); Creatine Kinase 174 U/L (35-257); Globulin 2.2 g/dL (1.6-3.3); Phosphorus 3.7 mg/dL (2.4-5.1); Rheumatoid Factor, Qnt 6 IU/mL (0-15); Total Bilirubin 0.4 mg/dL (0.3-1.2); Total Protein 7.2 g/dL (6.2-8.2)
== END | disposition home or self-care (01) ==
LOC: LABWHC1 13:00
PROVIDERS: ATTEND Psychiatry & Neurology Pain Medicine
DX: M62.838 Other muscle spasm (principal); M25.50 Pain in unspecified joint; R53.83 Other fatigue
CPT/HCPCS: 36415; 80076; 82310; 82550; 82607; 84100; 84439; 84443; 84481; 85025; 85652; 86038; 86431

== ENCOUNTER 2019-07-29 17:05 | Observation (INO) | payer OTHER ==
[2019-07-29 17:32] LABS: Basophils % (A) 0 %; Eosinophils # (A) 0.5 k/uL (0-0.7); Eosinophils % (A) 8 %; HCT 37.4 % (39.0-53.0); HGB 12.7 gm/dL (13.0-17.5); Lymphocytes # (A) 1.3 k/uL (1.0-4.8); Lymphocytes % (A) 19 %; MCH 31.5 pg (25.0-35.0); MCHC 33.8 g/dL (31.0-37.0); MCV 93.1 fL (80.0-100.0); Mean Platelet Volume 9.1; Monocytes # (A) 0.4 k/uL (0-1.0); Monocytes % (A) 6 %; Neutrophils # (A) 4.3 k/uL (1.3-7.7); Neutrophils % (A) 63 %; Platelet Count 159 k/uL (150-450); RBC 4.02 m/uL (4.30-5.90); RDW 12.3 % (11.5-15.5); WBC 6.8 k/uL (3.8-10.6)
--- NOTE | 2019-07-29 17:35 | ED ---
Lower Extremity Injury HPI - General Chief Complaint: Extremity Injury, Lower Stated Complaint: Ankle pain Time Seen by Provider: 07/29/19 17:10 Source: EMS Mode of arrival: EMS Limitations: no limitations - History of Present Illness Initial Comments: The patient is a 59-year-old male with past medical history of chronic pain, DVT and hypertension presents emergency room with reported bilateral lower externally swelling. States that the swelling and pain in his legs is chronic however has worsened over the past couple of days. Denies a history of CHF. Does admit to history of DVT. Patient does not know his medications however does not appear to be on anticoagulation. He denies any recent falls or trauma. No fevers or chills. He takes [place] since 2009 when he had a traumatic injury. Patient states that he is in a pain contract. Due to worsening pain he did call EMS. He was found to be ambulatory at the scene. He denies any unilateral numbness or weakness. No chest pain or shortness of breath. No joint swelling. There are no alleviating, precipitating or modifying factors - Related Data Home Medications Medication Instructions Recorded Confirmed Atorvastatin [Lipitor] 20 mg PO HS 01/21/18 07/30/19 Ergocalciferol (Vitamin D2) 50,000 unit PO FR 01/21/18 07/30/19 [Vitamin D2] amLODIPine [Norvasc] 5 mg PO BID 01/21/18 07/30/19 ALPRAZolam [Xanax] 1 mg PO TID PRN 07/30/19 07/30/19 Clopidogrel [Plavix] 75 mg PO DAILY 07/30/19 07/30/19 Diclofenac Sodium Gel [Voltaren 1 applic TOPICAL DAILY PRN 07/30/19 07/30/19 Gel] Divalproex [Depakote] 500 mg PO HS 07/30/19 07/30/19 Famotidine 20 mg PO DAILY PRN 07/30/19 07/30/19 HYDROcodone/APAP 10-325MG [[place] 1 tab PO TID 07/30/19 07/30/19 10-325] Ibuprofen [Motrin] 800 mg PO TID PRN 07/30/19 07/30/19 Lisdexamfetamine Dimesylate 70 mg PO QAM 07/30/19 07/30/19 [Vyvanse] Nicotine 14Mg/24Hr Patch [Habitrol 1 patch TRANSDERM DAILY 07/30/19 07/30/19 14Mg/24Hr Patch] Previous Rx's Medication Instructions Recorded Meloxicam [Mobic] 15 mg PO DAILY #30 tab 07/30/19 Allergies Allergy/AdvReac Type Severity Reaction Status Date / Time No Known Allergies Allergy Verified 07/30/19 13:17 Review of Systems ROS Statement: Those systems with pertinent positive or pertinent negative responses have been documented in the HPI. ROS Other: All systems not noted in ROS Statement are negative. Past Medical History Past Medical History: Diabetes Mellitus, Deep Vein Thrombosis (DVT), Hypertension Additional Past Medical History / Comment(s): Hernia, degenerative arthritis, ADD, ADHD History of Any Multi-Drug Resistant Organisms: None Reported Past Surgical History: Hernia Repair, Orthopedic Surgery Additional Past Surgical History / Comment(s): Umbilical hernia repair, I&D of the left foot between the fourth and fifth toes 2016 Past Anesthesia/Blood Transfusion Reactions: No Reported Reaction Past Psychological History: ADD/ADHD, Bipolar, Depression Smoking Status: Current every day smoker - Past Family History Father Additional Family Medical History / Comment(s): Biological father in his 60s from complications of an ankle surgery. Mother Additional Family Medical History / Comment(s): Biological mother in her 50s from suicide. Sister(s) Additional Family Medical History / Comment(s): He has 8 sisters with no major medical problems. Patient does not have any children. General Exam Limitations: altered mental status General appearance: alert (upon arrival), appears intoxicated Head exam: Present: atraumatic, normocephalic, normal inspection Eye exam: Present: normal appearance, PERRL, EOMI. Absent: scleral icterus, conjunctival injection, periorbital swelling ENT exam: Present: normal exam, mucous membranes moist Neck exam: Present: normal inspection Respiratory exam: Present: normal lung sounds bilaterally. Absent: respiratory distress, wheezes, rales, rhonchi, stridor Cardiovascular Exam: Present: regular rate, normal rhythm, normal heart sounds. Absent: systolic murmur, diastolic murmur, rubs, gallop, clicks Extremities exam: Present: tenderness (to palpation of the bilateral knees and calf. Compartments are soft. Patient has 5/5 muscle strength in hip flexors, knee extensors, ankle and great toe dorsiflexors and foot plantarflexors. Intact 2 point discrimination and soft touch), pedal edema (3+ ) Course Vital Signs 07/29/19 07/29/19 07/29/19 17:09 17:25 18:00 Temperature 98.5 F Pulse Rate 68 68 67 Respiratory 18 18 17 Rate Blood Pressure 127/67 127/67 135/70 O2 Sat by Pulse 97 97 98 Oximetry 07/29/19 07/29/19 07/29/19 19:00 19:30 19:38 Temperature Pulse Rate 68 62 Respiratory 18 16 16 Rate Blood Pressure 131/69 128/67 O2 Sat by Pulse 98 94 L Oximetry 07/29/19 19:54 Temperature Pulse Rate Respiratory 16 Rate Blood Pressure O2 Sat by Pulse Oximetry Medical Decision Making - Medical Decision Making Upon arrival the patient is placed into room 6. A thorough history and physical exam is performed. The patient does have difficulty answering some questions. He does appear acutely altered, possibly intoxicated. A close friend does come to the emergency department for a short period of time. She reports that he has a history of alcohol abuse and has no support system. I did conduct laboratory studies and ultrasound of the patient's bilateral lower extremities to look for DVT as he reports a history of them and is not on current anticoagulation. Laboratory studies are normal with a BNP of 35. Urinalysis is clean however positive for opiates, amphetamines, benzodiazepines and marijuana. I did draw an alcohol on the patient and is negative. Ultrasound of the bilateral extremities demonstrates no signs of DVT. I return to the room to discuss the diagnosis of lymphedema with the patient however he has become somnolent within the bed. He was given 2 doses of Narcan, 0.4 mg, approximately 15 minutes apart without improvement in his symptoms. He is able to be aroused however does take painful stimuli. We did look through the patient's belongings and he is found to have THC edibles as well as a vial that has THC labeled on it. The patient does take benzodiazepines daily and I am concerned about the risks of seizures with chronic use if I were to administer flumazenil. The patient has spontaneous respirations and is protecting his airway. I do believe the patient would benefit from overnight observation. I will hold all of his sedating medications. I discussed the case with Dr. Parker who accepted admission. The patient is currently awaiting a bed on the floor - Lab Data Result diagrams: 07/29/19 17:24 07/29/19 17:24 Lab Results 07/29/19 07/29/19 07/29/19 Range/Units 17:24 17:24 17:24 WBC 6.8 (3.8-10.6) k/uL RBC 4.02 L (4.30-5.90) m/uL Hgb 12.7 L (13.0-17.5) gm/dL Hct 37.4 L (39.0-53.0) % MCV 93.1 (80.0-100.0) fL MCH 31.5 (25.0-35.0) pg MCHC 33.8 (31.0-37.0) g/dL RDW 12.3 (11.5-15.5) % Plt Count 159 (150-450) k/uL Neutrophils % 63 % Lymphocytes % 19 % Monocytes % 6 % Eosinophils % 8 % Basophils % 0 % Neutrophils # 4.3 (1.3-7.7) k/uL Lymphocytes # 1.3 (1.0-4.8) k/uL Monocytes # 0.4 (0-1.0) k/uL Eosinophils # 0.5 (0-0.7) k/uL Basophils # 0.0 (0-0.2) k/uL PT 9.5 (9.0-12.0) sec INR 0.9 (<1.2) APTT 23.8 (22.0-30.0) sec Sodium (137-145) mmol/L Potassium (3.5-5.1) mmol/L Chloride (98-107) mmol/L Carbon Dioxide (22-30) mmol/L Anion Gap mmol/L BUN (9-20) mg/dL Creatinine (0.66-1.25) mg/dL Est GFR (CKD-EPI)AfAm (>60 ml/min/1.73 sqM) Est GFR (CKD-EPI)NonAf (>60 ml/min/1.73 sqM) Glucose (74-99) mg/dL Calcium (8.4-10.2) mg/dL Total Bilirubin (0.2-1.3) mg/dL AST (17-59) U/L ALT (4-49) U/L Alkaline Phosphatase (38-126) U/L NT-Pro-B Natriuret Pep pg/mL Total Protein (6.3-8.2) g/dL Albumin (3.5-5.0) g/dL Urine Color Urine Appearance (Clear) Urine pH (5.0-8.0) Ur Specific [place] (1.001-1.035) Urine Protein (Negative) Urine Glucose (UA) (Negative) Urine Ketones (Negative) Urine Blood (Negative) Urine Nitrite (Negative) Urine Bilirubin (Negative) Urine Urobilinogen (<2.0) mg/dL Ur Leukocyte Esterase (Negative) Urine Opiates Screen Detected H (NotDetected) Ur Oxycodone Screen Not Detected (NotDetected) Urine Methadone Screen Not Detected (NotDetected) Ur Propoxyphene Screen Not Detected (NotDetected) Ur Barbiturates Screen Not Detected (NotDetected) U Tricyclic Antidepress Not Detected (NotDetected) Ur Phencyclidine Scrn Not Detected (NotDetected) Ur Amphetamines Screen Detected H (NotDetected) U Methamphetamines Scrn Not Detected (NotDetected) U Benzodiazepines Scrn Detected H (NotDetected) Urine Cocaine Screen Not Detected (NotDetected) U Marijuana (THC) Screen Detected H (NotDetected) Serum Alcohol mg/dL 07/29/19 07/29/19 07/29/19 Range/Units 17:24 17:24 17:24 WBC (3.8-10.6) k/uL RBC (4.30-5.90) m/uL Hgb (13.0-17.5) gm/dL Hct (39.0-53.0) % MCV (80.0-100.0) fL MCH (25.0-35.0) pg MCHC (31.0-37.0) g/dL RDW (11.5-15.5) % Plt Count (150-450) k/uL Neutrophils % % Lymphocytes % % Monocytes % % Eosinophils % % Basophils % % Neutrophils # (1.3-7.7) k/uL Lymphocytes # (1.0-4.8) k/uL Monocytes # (0-1.0) k/uL Eosinophils # (0-0.7) k/uL Basophils # (0-0.2) k/uL PT (9.0-12.0) sec INR (<1.2) APTT (22.0-30.0) sec Sodium 134 L (137-145) mmol/L Potassium 4.1 (3.5-5.1) mmol/L Chloride 105 (98-107) mmol/L Carbon Dioxide 25 (22-30) mmol/L Anion Gap 4 mmol/L BUN 15 (9-20) mg/dL Creatinine 0.67 (0.66-1.25) mg/dL Est GFR (CKD-EPI)AfAm >90 (>60 ml/min/1.73 sqM) Est GFR (CKD-EPI)NonAf >90 (>60 ml/min/1.73 sqM) Glucose 107 H (74-99) mg/dL Calcium 8.9 (8.4-10.2) mg/dL Total Bilirubin 0.3 (0.2-1.3) mg/dL AST 22 (17-59) U/L ALT 16 (4-49) U/L Alkaline Phosphatase 80 (38-126) U/L NT-Pro-B Natriuret Pep 35 pg/mL Total Protein 6.8 (6.3-8.2) g/dL Albumin 4.2 (3.5-5.0) g/dL Urine Color Yellow Urine Appearance Clear (Clear) Urine pH 5.5 (5.0-8.0) Ur Specific [place] 1.017 (1.001-1.035) Urine Protein Negative (Negative) Urine Glucose (UA) Negative (Negative) Urine Ketones Negative (Negative) Urine Blood Negative (Negative) Urine Nitrite Negative (Negative) Urine Bilirubin Negative (Negative) Urine Urobilinogen <2.0 (<2.0) mg/dL Ur Leukocyte Esterase Negative (Negative) Urine Opiates Screen (NotDetected) Ur Oxycodone Screen (NotDetected) Urine Methadone Screen (NotDetected) Ur Propoxyphene Screen (NotDetected) Ur Barbiturates Screen (NotDetected) U Tricyclic Antidepress (NotDetected) Ur Phencyclidine Scrn (NotDetected) Ur Amphetamines Screen (NotDetected) U Methamphetamines Scrn (NotDetected) U Benzodiazepines Scrn (NotDetected) Urine Cocaine Screen (NotDetected) U Marijuana (THC) Screen (NotDetected) Serum Alcohol <10 mg/dL 07/29/19 Range/Units 17:24 WBC (3.8-10.6) k/uL RBC (4.30-5.90) m/uL Hgb (13.0-17.5) gm/dL Hct (39.0-53.0) % MCV (80.0-100.0) fL MCH (25.0-35.0) pg MCHC (31.0-37.0) g/dL RDW (11.5-15.5) % Plt Count (150-450) k/uL Neutrophils % % Lymphocytes % % Monocytes % % Eosinophils % % Basophils % % Neutrophils # (1.3-7.7) k/uL Lymphocytes # (1.0-4.8) k/uL Monocytes # (0-1.0) k/uL Eosinophils # (0-0.7) k/uL Basophils # (0-0.2) k/uL PT (9.0-12.0) sec INR (<1.2) APTT (22.0-30.0) sec Sodium (137-145) mmol/L Potassium (3.5-5.1) mmol/L Chloride (98-107) mmol/L Carbon Dioxide (22-30) mmol/L Anion Gap mmol/L BUN (9-20) mg/dL Creatinine (0.66-1.25) mg/dL Est GFR (CKD-EPI)AfAm (>60 ml/min/1.73 sqM) Est GFR (CKD-EPI)NonAf (>60 ml/min/1.73 sqM) Glucose (74-99) mg/dL Calcium (8.4-10.2) mg/dL Total Bilirubin (0.2-1.3) mg/dL AST (17-59) U/L ALT (4-49) U/L Alkaline Phosphatase (38-126) U/L NT-Pro-B Natriuret Pep pg/mL Total Protein (6.3-8.2) g/dL Albumin (3.5-5.0) g/dL Urine Color Urine Appearance (Clear) Urine pH (5.0-8.0) Ur Specific [place] (1.001-1.035) Urine Protein (Negative) Urine Glucose (UA) (Negative) Urine Ketones (Negative) Urine Blood (Negative) Urine Nitrite (Negative) Urine Bilirubin (Negative) Urine Urobilinogen (<2.0) mg/dL Ur Leukocyte Esterase (Negative) Urine Opiates Screen Detected H (NotDetected) Ur Oxycodone Screen Not Detected (NotDetected) Urine Methadone Screen Not Detected (NotDetected) Ur Propoxyphene Screen Not Detected (NotDetected) Ur Barbiturates Screen Not Detected (NotDetected) U Tricyclic Antidepress Not Detected (NotDetected) Ur Phencyclidine Scrn Not Detected (NotDetected) Ur Amphetamines Screen Detected H (NotDetected) U Methamphetamines Scrn Not Detected (NotDetected) U Benzodiazepines Scrn Detected H (NotDetected) Urine Cocaine Screen Not Detected (NotDetected) U Marijuana (THC) Screen Detected H (NotDetected) Serum Alcohol mg/dL Disposition Clinical Impression: Altered mental status, Polysubstance abuse, Lymphedema Disposition: ADMITTED IP TO THIS [facility] Condition: Stable Is patient prescribed a controlled substance at d/c from ED?: No Decision to Admit Reason: Admit from EC Decision Date: 07/29/19 Decision Time: 20:27
[2019-07-29 17:41] LABS: INR 0.9 (<1.2); Partial Thromboplastin Time 23.8 sec (22.0-30.0); Prothrombin Time 9.5 sec (9.0-12.0)
[2019-07-29 17:46] LABS: ALT 16 U/L (4-49); AST 22 U/L (17-59); African American GFR (CKD) >90 (>60 ml/min/1.73 sqM); Albumin 4.2 g/dL (3.5-5.0); Alcohol <10 mg/dL; Alkaline Phosphatase 80 U/L (38-126); Anion Gap 4 mmol/L; Blood Urea Nitrogen 15 mg/dL (9-20); Calcium 8.9 mg/dL (8.4-10.2); Carbon Dioxide 25 mmol/L (22-30); Chloride 105 mmol/L (98-107); Glucose 107 mg/dL (74-99); Non-African American GFR(CKD) >90 (>60 ml/min/1.73 sqM); Potassium 4.1 mmol/L (3.5-5.1); Sodium 134 mmol/L (137-145); Total Bilirubin 0.3 mg/dL (0.2-1.3); Total Protein 6.8 g/dL (6.3-8.2)
--- NOTE | 2019-07-29 18:17 | US ---
EXAMINATION TYPE: US venous doppler duplex LE DATE OF EXAM: 07/29/2019 6:02 PM COMPARISON: US 09/18/2015 CLINICAL HISTORY: leg swelling, hx dvt. Patient is a poor historian. Very out of it and could not mov e his legs or answer any questions SIDE PERFORMED: Bilateral TECHNIQUE: The lower extremity deep venous system is examined utilizing real time linear array sonog jean-claude with graded compression, doppler sonography and color-flow sonography. VESSELS IMAGED: External Iliac Vein (EIV) Common Femoral Vein Deep Femoral Vein Greater Saphenous Vein * Femoral Vein Popliteal Vein Small Saphenous Vein * Proximal Calf Veins (* superficial vessels) Right Leg: Negative for DVT Left Leg: Negative for DVT Within the left popliteal fossa, there is a large complex fluid collection measuring 10.8 x 3.0 x 5.4 cm IMPRESSION: No evidence of deep vein thrombosis in both legs. Large left side popliteal cyst.
[2019-07-29 18:20] LABS: Appearance,Urine Clear (Clear); Bilirubin,Urine Negative (Negative); Blood,Urine Negative (Negative); Color,Urine Yellow; Glucose,Urine (UA) Negative (Negative); Ketones,Urine Negative (Negative); Leukocyte Esterase,Urine Negative (Negative); Nitrite,Urine Negative (Negative); PH, Urine 5.5 (5.0-8.0); Protein,Urine Negative (Negative); Specific Gravity,Urine 1.017 (1.001-1.035); Urobilinogen,Urine <2.0 mg/dL (<2.0)
[2019-07-29 18:29] LABS: Amphetamine Screen,Urine Detected (NotDetected); Barbiturate Screen,Urine Not Detected (NotDetected); Benzodiazepines Screen,Urine Detected (NotDetected); Cocaine Screen,Urine Not Detected (NotDetected); Methadone Screen, Urine Not Detected (NotDetected); Opiate Screen,Urine Detected (NotDetected); Oxycodone Screen, Urine Not Detected (NotDetected); Phencyclidine Screen,Urine Not Detected (NotDetected); Tricyclic Antidepressant,Urine Not Detected (NotDetected); Urn Cannabinoid Scrn Detected (NotDetected)
[2019-07-29] MEDS ORDERED: NALOXONE 0.4 MG/ML 1 ML VIAL IV STA ×2 (19:30→19:52)
--- NOTE | 2019-07-29 19:48 | CT ---
EXAMINATION TYPE: CT brain wo con DATE OF EXAM: 07/29/2019 COMPARISON: 03/20/2016 HISTORY: ams CT DLP: 1166.4 mGycm Automated exposure control for dose reduction was used. Ventricles have normal size. There is no mass effect nor midline shift. There is no sign of intracran ial hemorrhage. The calvarium is intact. IMPRESSION: Negative unenhanced head CT scan. Minimal ethmoid sinusitis noted. No change compared to old exam.
[2019-07-29] MEDS ORDERED: NALOXONE 0.4 MG/ML 1 ML VIAL IV PRN (20:27)
[2019-07-29] MEDS ORDERED: KETOROLAC 30 MG/ML 1 ML VIAL IVP PRN (20:27)
[2019-07-30 03:16] LABS: Amphetamine Screen,Urine Detected (NotDetected); Barbiturate Screen,Urine Not Detected (NotDetected); Benzodiazepines Screen,Urine Detected (NotDetected); Cocaine Screen,Urine Not Detected (NotDetected); Methadone Screen, Urine Not Detected (NotDetected); Opiate Screen,Urine Detected (NotDetected); Oxycodone Screen, Urine Not Detected (NotDetected); Phencyclidine Screen,Urine Not Detected (NotDetected); Tricyclic Antidepressant,Urine Not Detected (NotDetected); Urn Cannabinoid Scrn Detected (NotDetected)
[2019-07-30 07:30] VITALS: BP 127/64; PULSE 68; RESP 17; TEMP 98.4
[2019-07-30] MEDS ORDERED: amLODIPine 5 MG TAB PO STA (11:16)
[2019-07-30] MEDS ORDERED: methylPREDNISolone ACETATE 40 MG/ML 1 ML VIAL INTRAARTIC STA (11:48)
[2019-07-30] MEDS ORDERED: LIDOCAINE (PF) 10 MG/ML 2 ML VIAL SQ ONE (12:00)
--- NOTE | 2019-07-30 12:24 | P.DS ---
Providers Date of admission: 07/29/19 20:27 Attending physician: Kathryn Parker Consults: 07/30/19 11:47 Consult Physician Routine Consulting Provider: Ariel Payne Consult Reason/Comments: Osteoarthritis Do you want consulting provider notified?: Yes Primary care physician: [facility] Course: As mentioned in HPI Patient Condition at Discharge: Stable Plan - Discharge Summary Discharge Rx Participant: No New Discharge Prescriptions: New Meloxicam [Mobic] 15 mg PO DAILY #30 tab Continue Atorvastatin [Lipitor] 20 mg PO HS Multivitamins, Thera [Multivitamin (formulary)] 1 tab PO DAILY amLODIPine [Norvasc] 5 mg PO DAILY Ranitidine HCl [Zantac] 150 mg PO BID Ergocalciferol (Vitamin D2) [Vitamin D2] 50,000 unit PO Q7D ARIPiprazole [Abilify] 5 mg PO DAILY #30 tab Citalopram Hydrobromide [CeleXA] 20 mg PO DAILY #30 tab HYDROcodone/APAP 5-325MG [[place] 5-325] 1 each PO Q8HR PRN tab PRN Reason: Pain Melatonin 5 mg PO HS #30 tablet Folic Acid 1 mg PO DAILY@1200 #30 tab metFORMIN HCL [Glucophage] 500 mg PO BID-W/MEALS #60 tab Multivitamins, Thera [Multivitamin (formulary)] 1 each PO DAILY@1200 #30 tab Thiamine [Vitamin B-1] 100 mg PO DAILY@1200 #15 tab Discharge Medication List Atorvastatin [Lipitor] 20 mg PO HS 01/21/18 [History] Ergocalciferol (Vitamin D2) [Vitamin D2] 50,000 unit PO Q7D 01/21/18 [History] Multivitamins, Thera [Multivitamin (formulary)] 1 tab PO DAILY 01/21/18 [History] Ranitidine HCl [Zantac] 150 mg PO BID 01/21/18 [History] amLODIPine [Norvasc] 5 mg PO DAILY 01/21/18 [History] ARIPiprazole [Abilify] 5 mg PO DAILY #30 tab 01/26/18 [Rx] Citalopram Hydrobromide [CeleXA] 20 mg PO DAILY #30 tab 01/26/18 [Rx] Folic Acid 1 mg PO DAILY@1200 #30 tab 01/26/18 [Rx] HYDROcodone/APAP 5-325MG [[place] 5-325] 1 each PO Q8HR PRN tab 01/26/18 [Rx] Melatonin 5 mg PO HS #30 tablet 01/26/18 [Rx] Multivitamins, Thera [Multivitamin (formulary)] 1 each PO DAILY@1200 #30 tab 01/26/18 [Rx] Thiamine [Vitamin B-1] 100 mg PO DAILY@1200 #15 tab 01/26/18 [Rx] metFORMIN HCL [Glucophage] 500 mg PO BID-W/MEALS #60 tab 01/26/18 [Rx] Meloxicam [Mobic] 15 mg PO DAILY #30 tab 07/30/19 [Rx] Follow up Appointment(s)/Referral(s): Rubi Ruiz MD [Primary Care Provider] - 3 Days (office closed at time of discharge. Please call Wednesday to make appointment) Patient Instructions/Handouts: Polysubstance Abuse (ED), Knee Pain (ED), Swollen Joint (ED) Discharge Disposition: HOME SELF-CARE
--- NOTE | 2019-07-30 12:24 | P.HPIM ---
History of Present Illness Patient is 59-year-old male male came in with the complaint of pain in the left knee patient has severe osteoarthritis follows up with pain management as an outpatient for pain management patient was told he has [id number] and severe osteoarthritis. Patient does have swollen left knee patient uses walker at home. After arrival to ER. Patient became altered and decreased responsiveness and found to have various parts of marijuana and patient drug screen is positive for multiple medications including Advil marijuana opiates. Patient does take [place] at home. Patient has been using all these for his pain. Patient had hist ory of DVT in the past Doppler of the bilateral lower extremity is did not reveal any DVT patient is presently not on any anticoagulation. Patient was given or cane with the little response subsequently last night patient the became more responsive. Patient is clinically doing well alert oriented 3 at this time. In counseling orthopedic surgery for arthrocentesis of the left knee along with a steroid injection into the left knee and probably patient will be discharged after that on nonsteroidal anti-inflammatory medications. Review of Systems REVIEW OF SYSTEMS: CONSTITUTIONAL: No fever, no malaise, no fatigue. HEENT: No recent visual problems or hearing problems. Denied any sore throat. CARDIOVASCULAR: No chest pain, orthopnea, PND, no palpitations, no syncope. PULMONARY: No shortness of breath, no cough, no hemoptysis. GASTROINTESTINAL: No diarrhea, no nausea, no vomiting, no abdominal pain. NEUROLOGICAL: No headaches, no weakness, no numbness. HEMATOLOGICAL: Denies any bleeding or petechiae. GENITOURINARY: Denies any burning micturition, frequency, or urgency. MUSCULOSKELETAL/RHEUMATOLOGICAL: As mentioned in HPI ENDOCRINE: Denies any polyuria or polydipsia. The rest of the 14-point review of systems is negative. Past Medical History Past Medical History: Diabetes Mellitus, Deep Vein Thrombosis (DVT), Hypertension Additional Past Medical History / Comment(s): Hernia, degenerative arthritis, ADD, ADHD History of Any Multi-Drug Resistant Organisms: None Reported Past Surgical History: Hernia Repair, Orthopedic Surgery Additional Past Surgical History / Comment(s): Umbilical hernia repair, I&D of the left foot between the fourth and fifth toes 2016 Past Anesthesia/Blood Transfusion Reactions: No Reported Reaction Past Psychological History: ADD/ADHD, Bipolar, Depression Smoking Status: Current every day smoker Past Alcohol Use History: None Reported Additional Past Alcohol Use History / Comment(s): 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 Past Drug Use History: Marijuana Additional Drug Use History / Comment(s): Patient states that he smokes about quarter of a gram every 2-3 days. - Past Family History Father Additional Family Medical History / Comment(s): Biological father in his 60s from complications of an ankle surgery. Mother Additional Family Medical History / Comment(s): Biological mother in her 50s from suicide. Sister(s) Additional Family Medical History / Comment(s): He has 8 sisters with no major medical problems. Patient does not have any children. Medications and Allergies Home Medications Medication Instructions Recorded Confirmed Type Atorvastatin [Lipitor] 20 mg PO HS 01/21/18 07/30/19 History Ergocalciferol (Vitamin D2) 50,000 unit PO Q7D 01/21/18 07/30/19 History [Vitamin D2] Multivitamins, Thera [Multivitamin 1 tab PO DAILY 01/21/18 07/30/19 History (formulary)] Ranitidine HCl [Zantac] 150 mg PO BID 01/21/18 07/30/19 History amLODIPine [Norvasc] 5 mg PO DAILY 01/21/18 07/30/19 History ARIPiprazole [Abilify] 5 mg PO DAILY #30 tab 01/26/18 07/30/19 Rx Citalopram Hydrobromide [CeleXA] 20 mg PO DAILY #30 tab 01/26/18 07/30/19 Rx Folic Acid 1 mg PO DAILY@1200 #30 tab 01/26/18 07/30/19 Rx HYDROcodone/APAP 5-325MG [[place] 1 each PO Q8HR PRN tab 01/26/18 07/30/19 Rx 5-325] Melatonin 5 mg PO HS #30 tablet 01/26/18 07/30/19 Rx Multivitamins, Thera [Multivitamin 1 each PO DAILY@1200 #30 tab 01/26/18 07/30/19 Rx (formulary)] Thiamine [Vitamin B-1] 100 mg PO DAILY@1200 #15 tab 01/26/18 07/30/19 Rx metFORMIN HCL [Glucophage] 500 mg PO BID-W/MEALS #60 tab 01/26/18 07/30/19 Rx Meloxicam [Mobic] 15 mg PO DAILY #30 tab 07/30/19 Rx Allergies Allergy/AdvReac Type Severity Reaction Status Date / Time No Known Allergies Allergy Verified 03/23/18 14:44 Physical Exam Vitals: Vital Signs Temp Pulse Pulse Resp BP BP Pulse Ox 07/30/19 07:00 98.4 F 68 17 127/64 93 L 07/29/19 23:00 96.4 F L 72 16 125/68 90 L 07/29/19 19:54 16 07/29/19 19:38 16 07/29/19 19:30 62 16 128/67 94 L 07/29/19 19:00 68 18 131/69 98 07/29/19 18:00 67 17 135/70 98 07/29/19 17:25 68 18 127/67 97 07/29/19 17:09 98.5 F 68 18 127/67 97 Intake and Output 07/29/19 07/30/19 07/30/19 22:59 06:59 14:59 Intake Total 480 580 Balance 480 580 Intake: Oral 480 580 Other: Voiding Method Toilet Toilet # Voids 1 Weight 81.647 kg 81.647 kg PHYSICAL EXAMINATION: GENERAL: The patient is alert and oriented x3, not in any acute distress. Well developed, well nourished. HEENT: Pupils are round and equally reacting to light. EOMI. No scleral icterus. No conjunctival pallor. Normocephalic, atraumatic. No pharyngeal erythema. No thyromegaly. CARDIOVASCULAR: S1 and S2 present. No murmurs, rubs, or gallops. PULMONARY: Chest is clear to auscultation, no wheezing or crackles. ABDOMEN: Soft, nontender, nondistended, normoactive bowel sounds. No palpable organomegaly. MUSCULOSKELETAL: Significant swelling in the left knee without any local is of temperature appears to have severe osteoarthritis with effusion EXTREMITIES: No cyanosis, clubbing, or pedal edema. NEUROLOGICAL: Gross neurological examination did not reveal any focal deficits. SKIN: No rashes. Results CBC & Chem 7: 07/29/19 17:24 07/29/19 17:24 Labs: Abnormal Lab Results - Last 24 Hours (Table) 07/29/19 07/29/19 07/29/19 Range/Units 17:24 17:24 17:24 RBC 4.02 L (4.30-5.90) m/uL Hgb 12.7 L (13.0-17.5) gm/dL Hct 37.4 L (39.0-53.0) % Sodium 134 L (137-145) mmol/L Glucose 107 H (74-99) mg/dL Urine Opiates Screen Detected H (NotDetected) Ur Amphetamines Screen Detected H (NotDetected) U Benzodiazepines Scrn Detected H (NotDetected) U Marijuana (THC) Screen Detected H (NotDetected) 07/29/19 Range/Units 17:24 RBC (4.30-5.90) m/uL Hgb (13.0-17.5) gm/dL Hct (39.0-53.0) % Sodium (137-145) mmol/L Glucose (74-99) mg/dL Urine Opiates Screen Detected H (NotDetected) Ur Amphetamines Screen Detected H (NotDetected) U Benzodiazepines Scrn Detected H (NotDetected) U Marijuana (THC) Screen Detected H (NotDetected) Thrombosis Risk Factor Assmnt - Choose All That Apply Any of the Below Risk Factors Present?: Yes Each Factor Represents 1 point: Age 41-60 years, Swollen legs (current) Other Risk Factors: Yes Each Risk Factor Represents 3 Points: History of DVT/PE Other congenital or acquired thrombophilia - If yes, enter type in comment: No Thrombosis Risk Factor Assessment Total Risk Factor Score: 5 Thrombosis Risk Factor Assessment Level: High Risk Assessment and Plan Plan: -Altered mental status and toxic encephalopathy secondary overdose on multiple medications including opiates, benzodiazepines marijuana and methamphetamine. Counseling was provided extensively. -Severe osteo-arthritis of the left knee patient the will be given a steroid injection to the knee and nonsteroidal anti-inflammatories before his discharge probably will need drainage of his effusion because of which I consulted orthotics surgery after this injection patient probably will be discharged later today -Type 2 diabetes mellitus -History of DVT presently not on any anti-correlation at this time -Hypertension -History of ADD -Nicotine abuse: Counseling was provided -Depression
--- NOTE | 2019-07-30 12:43 | XR ---
EXAMINATION TYPE: XR knee complete LT , 4 VIEWS DATE OF EXAM ORDERED: 07/30/2019 HISTORY: knee pain. COMPARISON: Previous study dated 05/25/2016. FINDINGS: There is evidence of chondrocalcinosis most marked in the medial compartment. There is jerzy nt space loss in the medial compartment as well as the patellofemoral joint. There are remodeling judith nges in the medial compartment as well as the patellofemoral joint. There is a knee joint effusion. N o fracture or dislocation is seen. There is pseudocystic change below the tibial spines within the ti tea. This was present previously. IMPRESSION: SEVERE CHANGES OF OSTEOARTHRITIS. THERE IS A CONCOMITANT EFFUSION.
--- NOTE | 2019-07-30 12:56 | P.CNOR ---
History of Present Illness - [facility] Consult date: 07/30/19 Consult reason: joint pain History of present illness: Patient is a 5-year-old male who was admitted to [facility] last night due to altered mental status and having to receive Narcan by the emergency room staff. Patient has known history of osteoarthritis involving many joints, he notes most of the discomfort recently Has involved his left knee. Patient does take Staples for this problem, she is seen by pain management doctor in [facility]. Apparently patient was found to have many drugs on his drug screen. Patient was evaluated by internal medicine today, internal medicine doctor did reach out to me for possibility of a aspiration along with cortisone injection of his left knee. Patient was seen today at bedside, he is dressed and ready to go. He states that he's had problems with his knees for quite some time. Patient denies any previous surgery involving the left knee. He utilizes a cane for ambulation. He does note discomfort in his right knee also, the left knee is more severe at this time. He denies any recent trauma, No fevers or chills. He has no other orthopedic complaints at this time. Review of Systems Constitutional: Reports as per HPI Past Medical History Past Medical History: Diabetes Mellitus, Deep Vein Thrombosis (DVT), Hypertension Additional Past Medical History / Comment(s): Hernia, degenerative arthritis, ADD, ADHD History of Any Multi-Drug Resistant Organisms: None Reported Past Surgical History: Hernia Repair, Orthopedic Surgery Additional Past Surgical History / Comment(s): Umbilical hernia repair, I&D of the left foot between the fourth and fifth toes 2016 Past Anesthesia/Blood Transfusion Reactions: No Reported Reaction Past Psychological History: ADD/ADHD, Bipolar, Depression Smoking Status: Current every day smoker Past Alcohol Use History: None Reported Additional Past Alcohol Use History / Comment(s): 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 Past Drug Use History: Marijuana Additional Drug Use History / Comment(s): Patient states that he smokes about quarter of a gram every 2-3 days. - Past Family History Father Additional Family Medical History / Comment(s): Biological father in his 60s from complications of an ankle surgery. Mother Additional Family Medical History / Comment(s): Biological mother in her 50s from suicide. Sister(s) Additional Family Medical History / Comment(s): He has 8 sisters with no major medical problems. Patient does not have any children. Medications and Allergies Home Medications Medication Instructions Recorded Confirmed Type Atorvastatin [Lipitor] 20 mg PO HS 01/21/18 07/30/19 History Ergocalciferol (Vitamin D2) 50,000 unit PO Q7D 01/21/18 07/30/19 History [Vitamin D2] Multivitamins, Thera [Multivitamin 1 tab PO DAILY 01/21/18 07/30/19 History (formulary)] Ranitidine HCl [Zantac] 150 mg PO BID 01/21/18 07/30/19 History amLODIPine [Norvasc] 5 mg PO DAILY 01/21/18 07/30/19 History ARIPiprazole [Abilify] 5 mg PO DAILY #30 tab 01/26/18 07/30/19 Rx Citalopram Hydrobromide [CeleXA] 20 mg PO DAILY #30 tab 01/26/18 07/30/19 Rx Folic Acid 1 mg PO DAILY@1200 #30 tab 01/26/18 07/30/19 Rx HYDROcodone/APAP 5-325MG [[place] 1 each PO Q8HR PRN tab 01/26/18 07/30/19 Rx 5-325] Melatonin 5 mg PO HS #30 tablet 01/26/18 07/30/19 Rx Multivitamins, Thera [Multivitamin 1 each PO DAILY@1200 #30 tab 01/26/18 07/30/19 Rx (formulary)] Thiamine [Vitamin B-1] 100 mg PO DAILY@1200 #15 tab 01/26/18 07/30/19 Rx metFORMIN HCL [Glucophage] 500 mg PO BID-W/MEALS #60 tab 01/26/18 07/30/19 Rx Meloxicam [Mobic] 15 mg PO DAILY #30 tab 07/30/19 Rx Allergies Allergy/AdvReac Type Severity Reaction Status Date / Time No Known Allergies Allergy Verified 03/23/18 14:44 Physical Examination Left lower extremity Obvious effusion present over the anterior aspect of the knee, no open lesions or sores. Generalized tenderness on the medial and lateral joint lines. Obvious crepitance felt over the patella with range of motion. Range of motion, he lacks about 5-7 of full extension, he flexes well past 90 with minimal difficulty. Calf is soft, no tenderness with palpation. Plantar flexion, dorsiflexion, EHL, FHL are intact. Distal neurovascular exam is intact. Results - Labs Labs: Abnormal Lab Results - Last 24 Hours (Table) 07/29/19 07/29/19 07/29/19 Range/Units 17:24 17:24 17:24 RBC 4.02 L (4.30-5.90) m/uL Hgb 12.7 L (13.0-17.5) gm/dL Hct 37.4 L (39.0-53.0) % Sodium 134 L (137-145) mmol/L Glucose 107 H (74-99) mg/dL Urine Opiates Screen Detected H (NotDetected) Ur Amphetamines Screen Detected H (NotDetected) U Benzodiazepines Scrn Detected H (NotDetected) U Marijuana (THC) Screen Detected H (NotDetected) 07/29/19 Range/Units 17:24 RBC (4.30-5.90) m/uL Hgb (13.0-17.5) gm/dL Hct (39.0-53.0) % Sodium (137-145) mmol/L Glucose (74-99) mg/dL Urine Opiates Screen Detected H (NotDetected) Ur Amphetamines Screen Detected H (NotDetected) U Benzodiazepines Scrn Detected H (NotDetected) U Marijuana (THC) Screen Detected H (NotDetected) H & H 07/29/19 Range/Units 17:24 Hgb 12.7 L (13.0-17.5) gm/dL Hct 37.4 L (39.0-53.0) % Coagulation 07/29/19 Range/Units 17:24 INR 0.9 (<1.2) Result Diagrams: 07/29/19 17:24 07/29/19 17:24 - Diagnostic results Knee x-ray: report reviewed, image reviewed (Images demonstrate severe tricompartmental osteoarthritic signs, including multiple osteophytes, joint space narrowing and subchondral sclerosis.) Assessment and Plan Assessment: Left knee pain Left knee effusion Severe left knee tricompartmental osteoarthritis Other medical comorbidities Plan: I was able to discuss the case, including the physical exam findings and imaging studies my attending Dr. Payne. For symptomatic relief, I did recommend a left knee aspiration with intra-articular steroid injection. I discussed the risk and benefits of the procedure with the patient, this to include but not exclude infection, blood loss, inadequate symptom relief, need for further tr eatment. He is in good understanding would like to proceed Patient may be candidate for knee replacement surgery in the future, this will be discussed on an outpatient visit. Due to the current COVID-19 issue, his follow-up will be likely delayed Internal medicine has prescribed prescribed nonsteroidal anti-inflammatories for discharge Please see procedure note for further detail
--- NOTE | 2019-07-30 12:56 | P.PCN ---
Date of Procedure: 07/30/19 Preoperative Diagnosis: Severe left knee tricompartmental osteoarthritis/effusion Postoperative Diagnosis: Same Procedure(s) Performed: Left knee intra-articular steroid injection with aspiration Anesthesia: local Surgeon: Ced Monzon Estimated Blood Loss (ml): 0 Pathology: none sent Condition: stable Disposition: no change Indications for Procedure: Left knee pain and swelling Description of Procedure: Risk and benefits of the procedure were discussed with the patient, he is in good understanding mellitus proceed. Consent was obtained, timeout was done. Patient was in the supine position, the knee was prepped with 1 chlorhexidine swab and one alcohol swabs. An 18-gauge needle was used to first aspirate 95 mL of serosanguineous fluid via the suprapatella approach. After appropriate aspiration, this syringe was switched, I then placed 2 mL of 1% plain lidocaine and 40 mg of Depo-Medrol via the suprapatellar approach. A bandage was then placed. Patient tolerated the procedure well.
== END 2019-07-30 14:20 | disposition home or self-care (01) ==
LOC: EC 17:05 → 5NMEDONC 20:27 → 4SSUR 07-30 04:42
PROVIDERS: ADMIT Internal Medicine; ATTEND Internal Medicine
DX: G92 Toxic encephalopathy (principal); T40.2X1A Poisoning by other opioids, accidental (unintentional), initial encounter; T42.4X1A Poisoning by benzodiazepines, accidental (unintentional), initial encounter; Z03.818 Encounter for observation for suspected exposure to other biological agents ruled out; M17.12 Unilateral primary osteoarthritis, left knee; M25.462 Effusion, left knee; E11.9 Type 2 diabetes mellitus without complications; F17.200 Nicotine dependence, unspecified, uncomplicated; F31.9 Bipolar disorder, unspecified; F90.9 Attention-deficit hyperactivity disorder, unspecified type; I10 Essential (primary) hypertension; I89.0 Lymphedema, not elsewhere classified; Z79.02 Long term (current) use of antithrombotics/antiplatelets; Z79.1 Long term (current) use of non-steroidal anti-inflammatories (NSAID); Z79.84 Long term (current) use of oral hypoglycemic drugs; Z79.899 Other long term (current) drug therapy; Z86.718 Personal history of other venous thrombosis and embolism; Z81.8 Family history of other mental and behavioral disorders; Z71.6 Tobacco abuse counseling; Z71.51 Drug abuse counseling and surveillance of drug abuser
CPT/HCPCS: 20610; 96375; 96376; 96374; 99285; 36415; 83880; 80053; 85025; 85610; 85730; 81003; 80306; 87502; 87635; 73562; 93970; 70450; G0378 ×3; G0480; J2001; J1030; J2310; J1885; 80320

== ENCOUNTER 2019-12-13 05:56 | Emergency (ER) | payer OTHER ==
[2019-12-13] MEDS ORDERED: KETOROLAC 15 MG/ML 1 ML VIAL IVP STA (06:17)
--- NOTE | 2019-12-13 06:20 | ED ---
General Adult HPI - General Stated complaint: Hip Pain Time Seen by Provider: 12/13/19 06:00 Source: patient, EMS, RN notes reviewed Mode of arrival: EMS Limitations: no limitations - History of Present Illness Initial comments: This a 59-year-old male presents emergency Department chief complaint of left hip pain. Patient states around 11:30 last night he started having cramping of his legs and hands he states he went to sleep and woke up around 12:30 with left hip pain. Patient states it was uncomfortable which has not worsened the point with any weightbearing that it's causes severe pain. 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 Patient denies any trauma to his left hip. No history of inguinal hernia. Patient is appointment abdominal pain. - Related Data Home Medications Medication Instructions Recorded Confirmed Atorvastatin [Lipitor] 20 mg PO HS 01/21/18 07/30/19 Ergocalciferol (Vitamin D2) 50,000 unit PO FR 01/21/18 07/30/19 [Vitamin D2] amLODIPine [Norvasc] 5 mg PO BID 01/21/18 07/30/19 ALPRAZolam [Xanax] 1 mg PO TID PRN 07/30/19 07/30/19 Clopidogrel [Plavix] 75 mg PO DAILY 07/30/19 07/30/19 Diclofenac Sodium Gel [Voltaren 1 applic TOPICAL DAILY PRN 07/30/19 07/30/19 Gel] Divalproex [Depakote] 500 mg PO HS 07/30/19 07/30/19 Famotidine 20 mg PO DAILY PRN 07/30/19 07/30/19 HYDROcodone/APAP 10-325MG [[place] 1 tab PO TID 07/30/19 07/30/19 10-325] Ibuprofen [Motrin] 800 mg PO TID PRN 07/30/19 07/30/19 Lisdexamfetamine Dimesylate 70 mg PO QAM 07/30/19 07/30/19 [Vyvanse] Nicotine 14Mg/24Hr Patch [Habitrol 1 patch TRANSDERM DAILY 07/30/19 07/30/19 14Mg/24Hr Patch] Previous Rx's Medication Instructions Recorded Meloxicam [Mobic] 15 mg PO DAILY #30 tab 07/30/19 predniSONE 50 mg PO DAILY #5 tab 12/13/19 Allergies Allergy/AdvReac Type Severity Reaction Status Date / Time No Known Allergies Allergy Verified 12/13/19 06:10 Review of Systems ROS Statement: Those systems with pertinent positive or pertinent negative responses have been documented in the HPI. ROS Other: All systems not noted in ROS Statement are negative. Past Medical History Past Medical History: Diabetes Mellitus, Deep Vein Thrombosis (DVT), Hypertension Additional Past Medical History / Comment(s): Hernia, degenerative arthritis, ADD, ADHD History of Any Multi-Drug Resistant Organisms: None Reported Past Surgical History: Hernia Repair, Orthopedic Surgery Additional Past Surgical History / Comment(s): Umbilical hernia repair, I&D of the left foot between the fourth and fifth toes 2016 Past Anesthesia/Blood Transfusion Reactions: No Reported Reaction Past Psychological History: ADD/ADHD, Bipolar, Depression - Past Family History Father Additional Family Medical History / Comment(s): Biological father in his 60s from complications of an ankle surgery. Mother Additional Family Medical History / Comment(s): Biological mother in her 50 s from suicide. Sister(s) Additional Family Medical History / Comment(s): He has 8 sisters with no major medical problems. Patient does not have any children. General Exam General appearance: alert, in no apparent distress Head exam: Present: atraumatic, normocephalic, normal inspection Eye exam: Present: normal appearance, PERRL, EOMI. Absent: scleral icterus, conjunctival injection, periorbital swelling Respiratory exam: Present: normal lung sounds bilaterally. Absent: respiratory distress, wheezes, rales, rhonchi, stridor Cardiovascular Exam: Present: normal rhythm, bradycardia, normal heart sounds. Absent: systolic murmur, diastolic murmur, rubs, gallop, clicks GI/Abdominal exam: Present: soft, normal bowel sounds. Absent: distended, tenderness, guarding, rebound, rigid Extremities exam: Present: other (Left lower extremity pulses are equal to the right lower extremities there are equal color equal warmth patient has pain with range of motion of left hip passive and active range of motion there is tenderness at the left inguinal, hip region with no obvious deformity no swelling.) Back exam: Present: normal inspection, full ROM. Absent: tenderness, paraspinal tenderness, vertebral tenderness Neurological exam: Present: alert, oriented X3, reflexes normal. Absent: motor sensory deficit Skin exam: Present: warm, dry, intact, normal color. Absent: rash Course Vital Signs 12/13/19 12/13/19 06:00 07:36 Temperature 97.5 F L Pulse Rate 50 L 49 L Respiratory 16 18 Rate Blood Pressure 127/67 142/75 O2 Sat by Pulse 97 100 Oximetry Medical Decision Making - Medical Decision Making Labs, x-ray and CT reviewed there are some arthritic degenerative changes noted. Upon obtaining patient on results he states that he normally wears shoe inserts 300 left in states he has not been wearing for last few days. This may contribute to his left hip pain. Patient be discharged with pain control, steroids will follow-up with orthopedics return parameters were discussed. Patient's neurovascular intact - Lab Data Result diagrams: 12/13/19 06:56 12/13/19 06:56 Lab Results 12/13/19 12/13/19 Range/Units 06:56 06:56 WBC 6.0 (3.8-10.6) k/uL RBC 4.23 L (4.30-5.90) m/uL Hgb 13.1 (13.0-17.5) gm/dL Hct 39.3 (39.0-53.0) % MCV 92.9 (80.0-100.0) fL MCH 30.9 (25.0-35.0) pg MCHC 33.2 (31.0-37.0) g/dL RDW 12.6 (11.5-15.5) % Plt Count 182 (150-450) k/uL Neutrophils % 64 % Lymphocytes % 20 % Monocytes % 7 % Eosinophils % 5 % Basophils % 1 % Neutrophils # 3.8 (1.3-7.7) k/uL Lymphocytes # 1.2 (1.0-4.8) k/uL Monocytes # 0.4 (0-1.0) k/uL Eosinophils # 0.3 (0-0.7) k/uL Basophils # 0.1 (0-0.2) k/uL Sodium 137 (137-145) mmol/L Potassium 3.7 (3.5-5.1) mmol/L Chloride 106 (98-107) mmol/L Carbon Dioxide 27 (22-30) mmol/L Anion Gap 4 mmol/L BUN 12 (9-20) mg/dL Creatinine 0.70 (0.66-1.25) mg/dL Est GFR (CKD-EPI)AfAm >90 (>60 ml/min/1.73 sqM) Est GFR (CKD-EPI)NonAf >90 (>60 ml/min/1.73 sqM) Glucose 123 H (74-99) mg/dL Calcium 9.1 (8.4-10.2) mg/dL Magnesium 1.8 (1.6-2.3) mg/dL Total Bilirubin 0.4 (0.2-1.3) mg/dL AST 21 (17-59) U/L ALT 18 (4-49) U/L Alkaline Phosphatase 77 (38-126) U/L Total Protein 6.0 L (6.3-8.2) g/dL Albumin 3.7 (3.5-5.0) g/dL Disposition Clinical Impression: Left hip pain Disposition: HOME SELF-CARE Condition: Stable Instructions (If sedation given, give patient instructions): Hip Pain (ED) Additional Instructions: Please return to the Emergency Department if symptoms worsen or any other concerns. Prescriptions: predniSONE 50 mg PO DAILY #5 tab Is patient prescribed a controlled substance at d/c from ED?: No Referrals: Rubi Ruiz MD [Primary Care Provider] - 1-2 days João Sotelo MD [STAFF PHYSICIAN] - 1-2 days Time of Disposition: 08:29
[2019-12-13 07:08] LABS: Basophils # (A) 0.1 k/uL (0-0.2); Basophils % (A) 1 %; Eosinophils # (A) 0.3 k/uL (0-0.7); Eosinophils % (A) 5 %; HCT 39.3 % (39.0-53.0); HGB 13.1 gm/dL (13.0-17.5); Lymphocytes # (A) 1.2 k/uL (1.0-4.8); Lymphocytes % (A) 20 %; MCH 30.9 pg (25.0-35.0); MCHC 33.2 g/dL (31.0-37.0); MCV 92.9 fL (80.0-100.0); Mean Platelet Volume 8.4; Monocytes # (A) 0.4 k/uL (0-1.0); Monocytes % (A) 7 %; Neutrophils # (A) 3.8 k/uL (1.3-7.7); Neutrophils % (A) 64 %; Platelet Count 182 k/uL (150-450); RBC 4.23 m/uL (4.30-5.90); RDW 12.6 % (11.5-15.5)
[2019-12-13 07:22] LABS: ALT 18 U/L (4-49); AST 21 U/L (17-59); African American GFR (CKD) >90 (>60 ml/min/1.73 sqM); Albumin 3.7 g/dL (3.5-5.0); Alkaline Phosphatase 77 U/L (38-126); Anion Gap 4 mmol/L; Blood Urea Nitrogen 12 mg/dL (9-20); Calcium 9.1 mg/dL (8.4-10.2); Carbon Dioxide 27 mmol/L (22-30); Chloride 106 mmol/L (98-107); Glucose 123 mg/dL (74-99); Magnesium 1.8 mg/dL (1.6-2.3); Non-African American GFR(CKD) >90 (>60 ml/min/1.73 sqM); Potassium 3.7 mmol/L (3.5-5.1); Sodium 137 mmol/L (137-145); Total Bilirubin 0.4 mg/dL (0.2-1.3)
[2019-12-13 07:37] VITALS: RESP 18
--- NOTE | 2019-12-13 08:13 | CT ---
EXAMINATION TYPE: CT pelvis wo con DATE OF EXAM: 12/13/2019 COMPARISON: CT 11/15/2012, pelvis and left hip 12/13/2019 HISTORY: Left groin and hip pain CT DLP: 439.6 mGycm Automated exposure control for dose reduction was used. Helical imaging through the pelvis. FINDINGS: Degenerative disc changes are noted at the lower lumbar spine, foraminal encroachment present L4-5 bi laterally, L3-4 bilaterally, facet arthropathy changes are also present and there is vacuum phenomeno n present at L3-4 and L4-5, loss of disc height of the visualized intervertebral levels. Bone mineral ization is maintained. No fracture or dislocation. No free fluid within the pelvis. Urinary bladder i s mildly distended. Suspect there is a right hydrocele present in the right hemiscrotum. No pelvic ad enopathy or evident inguinal hernia. Prostate shows associated calcification. Atheromatous change pre sent in the aortoiliac distribution. IMPRESSION: DEGENERATIVE DISC DISEASE AND FACET ARTHROPATHY, ADDITIONAL NONSPECIFIC FINDINGS ABOVE.
--- NOTE | 2019-12-13 08:16 | XR ---
EXAMINATION TYPE: XR Hip LT and AP Pelvis DATE OF EXAM: 12/13/2019 COMPARISON: CT same date HISTORY: Groin pain TECHNIQUE: A single AP view of the pelvis is obtained. Two views of the left hip are obtained. FINDINGS: There is no acute fracture/dislocation evident in the pelvis. The hip and sacroiliac join ts appear symmetric and unremarkable. The overlying soft tissue appears unremarkable. Two views of left hip show no acute fracture or dislocation. No focal lytic or sclerotic lesion seen in the proximal left femur. The overlying soft tissue is unremarkable. Some mild marginal spurring and joint space loss suspected. IMPRESSION: There is no acute fracture or dislocation in the pelvis or left hip. There are mild oste oarthritic changes.
[2019-12-13] MEDS ORDERED: methylPREDNISolone SOD SUCCI 125 MG/2 ML VIAL IV STA (08:27)
[2019-12-13] MEDS ORDERED: ACET/COD 300 MG/30 MG STARTER PACK 6 TAB BTL PO STA (08:29)
[2019-12-13 08:56] VITALS: BP 139/77; PULSE 51; TEMP 97.9
== END 2019-12-13 08:55 | disposition home or self-care (01) ==
LOC: EC 05:56
DX: M25.552 Pain in left hip (principal); M51.36 Other intervertebral disc degeneration, lumbar region; M46.86 Other specified inflammatory spondylopathies, lumbar region; I10 Essential (primary) hypertension; F90.9 Attention-deficit hyperactivity disorder, unspecified type; F31.9 Bipolar disorder, unspecified; Z79.899 Other long term (current) drug therapy; Z79.02 Long term (current) use of antithrombotics/antiplatelets; Z86.718 Personal history of other venous thrombosis and embolism; Z98.890 Other specified postprocedural states
CPT/HCPCS: 36415; 80053; 83735; 85025; 73502; 72192; 99284; 96374; 96375; J2930; J1885

== ENCOUNTER 2019-12-19 06:31 | Emergency (ER) | payer OTHER ==
[2019-12-19] MEDS ORDERED: DEXAMETHASONE SOD PHOSPHATE 10 MG/ML 1 ML VIAL IV STA (06:52)
[2019-12-19] MEDS ORDERED: KETOROLAC 15 MG/ML 1 ML VIAL IVP STA (06:52)
--- NOTE | 2019-12-19 07:16 | ED ---
Extremity Problem HPI - General Chief complaint: Extremity Problem,Nontraumatic Stated complaint: Leg pain Time Seen by Provider: 12/19/19 06:34 Source: patient, EMS, RN notes reviewed Mode of arrival: EMS Limitations: no limitations - History of Present Illness Initial comments: This a 59-year-old male presents emergency department via EMS chief complaint of ongoing left hip pain. Patient was seen here 1 week ago was given steroids states that he made all symptoms resolved but states when he stopped symptoms return. Patient left hip pain was exacerbated by not wearing his shoe inserts. Patient states that he had to adjust some now is his symptoms. Patient follow- up with PCP who referred him to neurology his pain management but was not refer red to orthopedics as directed and to follow-up. Patient denies any paresthesias. Patient states it's painful to move he is able to use his leg has no motor loss. Patient states that he has no paresthesias denies any bowel, bladder incontinence or retention. Denies any falls. - Related Data Home Medications Medication Instructions Recorded Confirmed Atorvastatin [Lipitor] 20 mg PO HS 01/21/18 07/30/19 Ergocalciferol (Vitamin D2) 50,000 unit PO FR 01/21/18 07/30/19 [Vitamin D2] amLODIPine [Norvasc] 5 mg PO BID 01/21/18 07/30/19 ALPRAZolam [Xanax] 1 mg PO TID PRN 07/30/19 07/30/19 Clopidogrel [Plavix] 75 mg PO DAILY 07/30/19 07/30/19 Diclofenac Sodium Gel [Voltaren 1 applic TOPICAL DAILY PRN 07/30/19 07/30/19 Gel] Divalproex [Depakote] 500 mg PO HS 07/30/19 07/30/19 Famotidine 20 mg PO DAILY PRN 07/30/19 07/30/19 HYDROcodone/APAP 10-325MG [[place] 1 tab PO TID 07/30/19 07/30/19 10-325] Ibuprofen [Motrin] 800 mg PO TID PRN 07/30/19 07/30/19 Lisdexamfetamine Dimesylate 70 mg PO QAM 07/30/19 07/30/19 [Vyvanse] Nicotine 14Mg/24Hr Patch [Habitrol 1 patch TRANSDERM DAILY 07/30/19 07/30/19 14Mg/24Hr Patch] Previous Rx's Medication Instructions Recorded Meloxicam [Mobic] 15 mg PO DAILY #30 tab 07/30/19 predniSONE 50 mg PO DAILY #5 tab 12/13/19 predniSONE 10 mg PO DIRECTED #20 tab 12/19/19 Allergies Allergy/AdvReac Type Severity Reaction Status Date / Time No Known Allergies Allergy Verified 12/13/19 06:10 Review of Systems ROS Statement: Those systems with pertinent positive or pertinent negative responses have been documented in the HPI. ROS Other: All systems not noted in ROS Statement are negative. Past Medical History Past Medical History: Diabetes Mellitus, Deep Vein Thrombosis (DVT), Hypertension Additional Past Medical History / Comment(s): Hernia, degenerative arthritis, ADD, ADHD History of Any Multi-Drug Resistant Organisms: None Reported Past Surgical History: Hernia Repair, Orthopedic Surgery Additional Past Surgical History / Comment(s): Umbilical hernia repair, I&D of the left foot between the fourth and fifth toes 2016 Past Anesthesia/Blood Transfusion Reactions: No Reported Reaction Past Psychological History: ADD/ADHD, Bipolar, Depression Smoking Status: Former smoker Past Alcohol Use History: None Reported Past Drug Use History: Marijuana - Past Family History Father Additional Family Medical History / Comment(s): Biological father in his 60s from complications of an ankle surgery. Mother Additional Family Medical History / Comment(s): Biological mother in her 50s from suicide. Sister(s) Additional Family Medical History / Comment(s): He has 8 sisters with no major medical problems. Patient does not have any children. General Exam Limitations: no limitations General appearance: alert, in no apparent distress Head exam: Present: atraumatic, normocephalic, normal inspection Eye exam: Present: normal appearance, PERRL, EOMI. Absent: scleral icterus, conjunctival injection, periorbital swelling ENT exam: Present: normal exam, normal oropharynx, mucous membranes moist Neck exam: Present: normal inspection, full ROM. Absent: tenderness, meningismus, lymphadenopathy Respiratory exam: Present: normal lung sounds bilaterally. Absent: respiratory distress, wheezes, rales, rhonchi, stridor Cardiovascular Exam: Present: regular rate, normal rhythm, normal heart sounds. Absent: systolic murmur, diastolic murmur, rubs, gallop, clicks GI/Abdominal exam: Present: soft, normal bowel sounds. Absent: distended, tenderness, guarding, rebound, rigid Extremities exam: Present: other (Mild discomfort with range of motion left hip, left leg is neurovascularly intact there is no discoloration no erythema strength is equal bilaterally 5/5) Back exam: Present: full ROM. Absent: tenderness, paraspinal tenderness, vertebral tenderness Neurological exam: Present: reflexes normal. Absent: motor sensory deficit Skin exam: Present: warm, dry, intact, normal color. Absent: rash Course Vital Signs 12/19/19 06:34 Pulse Rate 92 Respiratory 18 Rate Blood Pressure 174/88 O2 Sat by Pulse 98 Oximetry Medical Decision Making - Medical Decision Making I did review prior imaging including x-ray and CT. Patient mild stranding changes no other acute abnormality. Patient did have improvement steroids. Patient told that he cannot be on chronic steroids though he'll be given a few days until he can follow-up with orthopedics. Patient denies alcohol today. Disposition Clinical Impression: Left hip pain Disposition: HOME SELF-CARE Condition: Stable Instructions (If sedation given, give patient instructions): Hip Pain (ED) Additional Instructions: Please return to the Emergency Department if symptoms worsen or any other concerns. Prescriptions: predniSONE 10 mg PO DIRECTED #20 tab Is patient prescribed a controlled substance at d/c from ED?: No Referrals: Rubi Ruiz MD [Primary Care Provider] - 1-2 days João Sotelo MD [STAFF PHYSICIAN] - 1-2 days Time of Disposition: 07:16
[2019-12-19 07:20] VITALS: TEMP 98.5
[2019-12-19 07:30] VITALS: BP 168/88; PULSE 78; RESP 16
== END 2019-12-19 07:28 | disposition home or self-care (01) ==
LOC: EC 06:31
DX: M25.552 Pain in left hip (principal); E11.9 Type 2 diabetes mellitus without complications; I10 Essential (primary) hypertension; F90.9 Attention-deficit hyperactivity disorder, unspecified type; Z79.02 Long term (current) use of antithrombotics/antiplatelets; Z79.899 Other long term (current) drug therapy; Z86.718 Personal history of other venous thrombosis and embolism; Z87.891 Personal history of nicotine dependence
CPT/HCPCS: 99284; 96374; 96375; J1100; J1885

== ENCOUNTER 2020-01-09 22:39 | Emergency (ER) | payer OTHER ==
[2020-01-09 22:44] VITALS: RESP 14; TEMP 97.6
[2020-01-09] MEDS ORDERED: KETOROLAC 15 MG/ML 1 ML VIAL IM STA (23:14)
--- NOTE | 2020-01-09 23:25 | ED ---
Extremity Problem HPI - General Chief complaint: Extremity Problem,Nontraumatic Stated complaint: Flank Pain Time Seen by Provider: 01/09/20 22:47 Source: patient, EMS Mode of arrival: EMS Limitations: no limitations - History of Present Illness Initial comments: Patient is a 59-year-old male presenting to emergency Department with complaints of left hip pain with some radiation to the left glut. Patient states he has had this pain on and off for 1-2 months. He was here in the beginning of the month and did have x-rays as well as a computed tomography scan which revealed no acute fractures. He was suppose follow up with orthopedics which he did last week. He also follows with a neurologist for chronic back pain. They did schedule him an MRI of his left hip which is in 2 weeks. Patient states the pain is progressively getting worse. He denies any new falls or injuries. He denies any fever or chills, no numbness or tingling in his lower extremities. He states he does not take Motrin or Tylenol for his pain. He has no further complaints at this time. Upon arrival to the ER his vitals are stable. - Related Data Home Medications Medication Instructions Recorded Confirmed Atorvastatin [Lipitor] 20 mg PO HS 01/21/18 07/30/19 Ergocalciferol (Vitamin D2) 50,000 unit PO FR 01/21/18 07/30/19 [Vitamin D2] amLODIPine [Norvasc] 5 mg PO BID 01/21/18 07/30/19 ALPRAZolam [Xanax] 1 mg PO TID PRN 07/30/19 07/30/19 Clopidogrel [Plavix] 75 mg PO DAILY 07/30/19 07/30/19 Diclofenac Sodium Gel [Voltaren 1 applic TOPICAL DAILY PRN 07/30/19 07/30/19 Gel] Divalproex [Depakote] 500 mg PO HS 07/30/19 07/30/19 Famotidine 20 mg PO DAILY PRN 07/30/19 07/30/19 HYDROcodone/APAP 10-325MG [[place] 1 tab PO TID 07/30/19 07/30/19 10-325] Ibuprofen [Motrin] 800 mg PO TID PRN 07/30/19 07/30/19 Lisdexamfetamine Dimesylate 70 mg PO QAM 07/30/19 07/30/19 [Vyvanse] Nicotine 14Mg/24Hr Patch [Habitrol 1 patch TRANSDERM DAILY 07/30/19 07/30/19 14Mg/24Hr Patch] Previous Rx's Medication Instructions Recorded Meloxicam [Mobic] 15 mg PO DAILY #30 tab 07/30/19 predniSONE 50 mg PO DAILY #5 tab 12/13/19 predniSONE 10 mg PO DIRECTED #20 tab 12/19/19 predniSONE 10 mg PO BID 5 Days #10 tab 01/09/20 Allergies Allergy/AdvReac Type Severity Reaction Status Date / Time No Known Allergies Allergy Verified 01/09/20 22:48 Review of Systems ROS Statement: Those systems with pertinent positive or pertinent negative responses have been documented in the HPI. ROS Other: All systems not noted in ROS Statement are negative. Past Medical History Past Medical History: Diabetes Mellitus, Deep Vein Thrombosis (DVT), Hypertension Additional Past Medical History / Comment(s): Hernia, degenerative arthritis, ADD, ADHD History of Any Multi-Drug Resistant Organisms: None Reported Past Surgical History: Hernia Repair, Orthopedic Surgery Additional Past Surgical History / Comment(s): Umbilical hernia repair, I&D of the left foot between the fourth and fifth toes 2016 Past Anesthesia/Blood Transfusion Reactions: No Reported Reaction Past Psychological History: ADD/ADHD, Bipolar, Depression Smoking Status: Former smoker Past Alcohol Use History: None Reported Past Drug Use History: Marijuana - Past Family History Father Additional Family Medical History / Comment(s): Biological father in his 60s from complications of an ankle surgery. Mother Additional Family Medical History / Comment(s): Biological mother in her 50s from suicide. Sister(s) Additional Family Medical History / Comment(s): He has 8 sisters with no major medical problems. Patient does not have any children. General Exam - General Exam Comments Initial Comments: GENERAL: Patient is well-developed and well-nourished. Patient is nontoxic and in no acute distress. HEAD: Atraumatic, normocephalic. EYES: Pupils equal round and reactive to light, extraocular movements intact, sclera anicteric, conjunctiva are normal. Eyelids were unremarkable. ENT: TMs normal, nares patent, oropharynx clear without exudates. Moist mucous membranes. NECK: Normal range of motion, supple without lymphadenopathy or JVD. LUNGS: Unlabored respirations. Breath sounds clear to auscultation bilaterally and equal. No wheezes rales or rhonchi. HEART: Regular rate and rhythm without murmurs, rubs or gallops. ABDOMEN: Soft, nontender, normoactive bowel sounds. No guarding, no rebound. No masses appreciated. : Deferred MUSCULOSKELETAL: No pain with palpation of the left lateral posterior hip. Normal extremities with adequate strength and normal range of motion, no pitting or edema. No clubbing or cyanosis. NEUROLOGICAL: Patient is alert and oriented x 3. Motor and sensory are also intact. Cranial nerves II through XII grossly intact. Symmetrical smile. Normal speech. PSYCH: Normal mood, normal affect. SKIN: Warm, Dry, normal turgor, no rashes or lesions noted. Limitations: no limitations Course Vital Signs 01/09/20 22:42 Temperature 97.6 F Pulse Rate 104 H Respiratory 14 Rate Blood Pressure 130/92 O2 Sat by Pulse 95 Oximetry Medical Decision Making - Medical Decision Making patient is 59-year-old male here for left hip pain that is ongoing for 1-2 months. He has had recent computed tomography scan and x-rays of his left hip and pelvis which revealed no acute fractures or complications. He did finally follow up with orthopedics last week and they did schedule him an MRI which is in 2 weeks. His exam today reveals no neural deficits. He is able to ambulate with a limp, he normally walks with a cane. I will give him Toradol injection stay for his pain. Patient is also requesting steroids which has helped in the past. I will start him on a very short course of prednisone. He needs to follow up with orthopedics. He is in agreement with this plan of care. return parameters were discussed with the patient he verbalizes understanding. Case disccused with Dr. Us. Disposition Clinical Impression: Chronic left hip pain Disposition: HOME SELF-CARE Condition: Stable Instructions (If sedation given, give patient instructions): Hip Pain (ED) Additional Instructions: Please return to the Emergency Department if symptoms worsen or any other concerns. May take Tylenol or Motrin for discomfort. Continue to use cane for walking. Follow-up with orthopedics as discussed. Prescriptions: predniSONE 10 mg PO BID 5 Days #10 tab Is patient prescribed a controlled substance at d/c from ED?: No Referrals: Rubi Ruiz MD [Primary Care Provider] - 1-2 days
[2020-01-09] MEDS: ACET/COD 300 MG/30 MG STARTER PACK 6 TAB BTL PO STA (23:55)
[2020-01-10] MEDS: ACET/COD 300 MG/30 MG STARTER PACK 6 TAB BTL PO STA
[2020-01-10 00:04] VITALS: BP 142/84; PULSE 102
== END 2020-01-10 00:05 | disposition home or self-care (01) ==
LOC: EC 22:39
DX: G89.29 Other chronic pain (principal); M25.552 Pain in left hip; M54.9 Dorsalgia, unspecified; I10 Essential (primary) hypertension; M19.90 Unspecified osteoarthritis, unspecified site; F32.9 Major depressive disorder, single episode, unspecified; F90.9 Attention-deficit hyperactivity disorder, unspecified type; Z79.899 Other long term (current) drug therapy; Z79.02 Long term (current) use of antithrombotics/antiplatelets; Z86.718 Personal history of other venous thrombosis and embolism; Z87.891 Personal history of nicotine dependence
CPT/HCPCS: 99284; 96372; J1885

== ENCOUNTER → 2020-01-22 | Outpatient (CLI) | payer OTHER ==
--- NOTE | 2020-01-22 12:42 | MR ---
EXAMINATION TYPE: MR lumbar spine wo/w con DATE OF EXAM: 01/22/2020 COMPARISON: 08/05/2017 HISTORY: 60-year-old male M54.5, low back pain extending into the left buttock and leg. Technique: Multiplanar, multisequence images of the lumbar spine were obtained before and after admin istration of 9 mL IV Gadavist. FINDINGS: Transitional lumbosacral segment is noted as a partially lumbarized S1. Vertebral body heights are preserved. Trace grade 1 retrolisthesis that L2-L3 and L3-L4 with hypertrophic facet arthropathy mid to lower nina mbar spine. Some prominent dorsal epidural fat is present in the mid lumbar spine. Moderate multilevel degenerative disc disease with variable disc desiccation and disc bulging. Scatte red vacuum phenomenon is present at L4-L5 and L5-S1. Conus medullaris is normal. Mild heterogeneous marrow signal without suspicious bone marrow replacement. No prevertebral or paravertebral soft tissue abnormality is seen. At T12-L1, no canal or foraminal stenosis. At L1-L2, there is facet arthropathy on the left without significant canal or foraminal stenosis. At L2-L3, trace grade 1 retrolisthesis with facet arthropathy and bulging disc. There is some impress ion on the ventral thecal sac without significant spinal canal stenosis. Changes result in similar mo derate left and minimal inferior right neuroforaminal stenosis. At L3-L4, facet arthropathy with trace grade 1 retrolisthesis. Prominent dorsal epidural fat and diff use disc bulge. Changes result in mild overall spinal canal stenosis, increased slightly from prior. There is a new left intraforaminal disc extrusion which results in moderate to severe left neuroforam inal stenosis and nerve root impingement. Similar mild right neuroforaminal stenosis. At L4-L5, hypertrophic facet arthropathy with ligamentum flavum thickening and bulging disc. Some pro minent dorsal epidural fat is also present. There is impression on the thecal sac but no significant spinal canal stenosis. Moderate to severe right and moderate left neuroforaminal stenoses remain. At L5-S1, bulging disc with hypertrophic facet arthropathy. No spinal canal stenosis. Similar moderat e to severe right and moderate left neuroforaminal stenosis. Redemonstrated left paracentral disc pro trusion abutting the traversing left S1 nerve root. No abnormal enhancement within the spinal canal. IMPRESSION: 1. Moderate multilevel degenerative disc disease. Multilevel hypertrophic facet arthropathy. Degenera tive grade 1 retrolisthesis at L2-L3 and L3-L4. Overall changes have slightly progressed from 2018. 2. Disc bulges impress onto the ventral thecal sac at multiple levels. This is increased at L3-L4 whe re there is an overall mild spinal canal stenosis. No high-grade canal compromise. 3. New left intraforaminal discs extrusion at L3-L4 causes a moderate to severe neuroforaminal stenos is likely impinging the exiting left L3 nerve root. 4. Variable neuroforaminal stenoses at other levels as outlined above, relatively similar to prior. A left paracentral herniation at L5-S1 continues to abut the traversing left S1 nerve root.
== END | disposition home or self-care (01) ==
LOC: RADMRIMAIN 10:04
PROVIDERS: ATTEND Orthopaedic Surgery
DX: M48.061 Spinal stenosis, lumbar region without neurogenic claudication (principal); M51.26 Other intervertebral disc displacement, lumbar region; M43.16 Spondylolisthesis, lumbar region; M51.36 Other intervertebral disc degeneration, lumbar region; M47.816 Spondylosis without myelopathy or radiculopathy, lumbar region
CPT/HCPCS: 72158; A9585

== ENCOUNTER → 2020-01-23 | Outpatient (CLI) | payer OTHER ==
--- NOTE | 2020-01-24 07:15 | MR ---
EXAMINATION TYPE: MR pelvis wo/w con DATE OF EXAM: 01/23/2020 COMPARISON: 07/01/2016 HISTORY: Back and pelvic pain CONTRAST: Standard multiplanar, multisequence MRI departmental protocol utilizing 9.5 mL intravenous Gadavist g adolinium contrast. There is no free fluid in the pelvis. There is no evidence of a pelvic mass. Bladder distends smoothl y. I see no sign of pelvic lymphadenopathy. The bony pelvis appears intact. There is no evidence for fracture. Sacroiliac joints are intact. There is 4 mm degenerative cysts in the left acetabulum. Ther e is normal signal pattern in the proximal femurs. There is no evidence of avascular necrosis. There is slightly more hip joint fluid on the left side compared to the right. There is also small degenera tive cysts in the anterior right acetabulum. The contrast images show no pathologic enhancement. Ther e is no evidence of a soft tissue mass. IMPRESSION: Slight increased joint fluid on the left side compared to the right consistent with synovitis. No fra cture seen. Degenerative cyst formation in the left and right acetabulum. Degenerative cysts in the a nterior left acetabulum is new compared to the old exam.
== END | disposition home or self-care (01) ==
LOC: RADMRIMAIN 10:20
PROVIDERS: ATTEND Orthopaedic Surgery
DX: M25.852 Other specified joint disorders, left hip (principal); M25.851 Other specified joint disorders, right hip
CPT/HCPCS: 72197; A9585

== ENCOUNTER 2020-01-24 19:12 | Emergency (ER) | payer OTHER ==
[2020-01-24 19:23] VITALS: BP 141/82; PULSE 95; RESP 18; TEMP 97
[2020-01-24] MEDS ORDERED: DEXAMETHASONE SOD PHOSPHATE 10 MG/ML 1 ML VIAL IM STA (19:39)
--- NOTE | 2020-01-24 19:47 | ED ---
General Adult HPI - General Chief complaint: Extremity Injury, Lower Stated complaint: hip pain Time Seen by Provider: 01/24/20 19:14 Source: patient, EMS, RN notes reviewed, old records reviewed Mode of arrival: EMS - History of Present Illness Initial comments: 60-year-old male presenting for evaluation of left hip pain. This pain ongoing symptom for the past 2 months. 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 MRIs have been obtained on an outpatient basis. He had an MRI of his pelvis and nina mbar spine within the past several days. Denies fever. He states the pain is worse with movement and is on the anterior left hip. He does have history of chronic pain. No fever. No bowel or bladder dysfunction. Pain is improved with flexion at the hip. Patient has been coming and going and has improved with steroids. No new trauma, no overuse. MRI of the hip showing osteoarthritis and acetabular cyst. Pain is improved with Decadron. - Related Data Home Medications Medication Instructions Recorded Confirmed Atorvastatin [Lipitor] 20 mg PO HS 01/21/18 07/30/19 Ergocalciferol (Vitamin D2) 50,000 unit PO FR 01/21/18 07/30/19 [Vitamin D2] amLODIPine [Norvasc] 5 mg PO BID 01/21/18 07/30/19 ALPRAZolam [Xanax] 1 mg PO TID PRN 07/30/19 07/30/19 Clopidogrel [Plavix] 75 mg PO DAILY 07/30/19 07/30/19 Diclofenac Sodium Gel [Voltaren 1 applic TOPICAL DAILY PRN 07/30/19 07/30/19 Gel] Divalproex [Depakote] 500 mg PO HS 07/30/19 07/30/19 Famotidine 20 mg PO DAILY PRN 07/30/19 07/30/19 HYDROcodone/APAP 10-325MG [[place] 1 tab PO TID 07/30/19 07/30/19 10-325] Ibuprofen [Motrin] 800 mg PO TID PRN 07/30/19 07/30/19 Lisdexamfetamine Dimesylate 70 mg PO QAM 07/30/19 07/30/19 [Vyvanse] Nicotine 14Mg/24Hr Patch [Habitrol 1 patch TRANSDERM DAILY 07/30/19 07/30/19 14Mg/24Hr Patch] Previous Rx's Medication Instructions Recorded Meloxicam [Mobic] 15 mg PO DAILY #30 tab 07/30/19 predniSONE 50 mg PO DAILY #5 tab 12/13/19 predniSONE 10 mg PO DIRECTED #20 tab 12/19/19 predniSONE 10 mg PO BID 5 Days #10 tab 01/09/20 Allergies Allergy/AdvReac Type Severity Reaction Status Date / Time No Known Allergies Allergy Verified 01/09/20 22:48 Review of Systems ROS Statement: Those systems with pertinent positive or pertinent negative responses have been documented in the HPI. ROS Other: All systems not noted in ROS Statement are negative. Past Medical History Past Medical History: Diabetes Mellitus, Deep Vein Thrombosis (DVT), Hypert ension Additional Past Medical History / Comment(s): Hernia, degenerative arthritis, ADD, ADHD History of Any Multi-Drug Resistant Organisms: None Reported Past Surgical History: Hernia Repair, Orthopedic Surgery Additional Past Surgical History / Comment(s): Umbilical hernia repair, I&D of the left foot between the fourth and fifth toes 2016 Past Anesthesia/Blood Transfusion Reactions: No Reported Reaction Past Psychological History: ADD/ADHD, Bipolar, Depression Smoking Status: Former smoker Past Alcohol Use History: None Reported Past Drug Use History: Marijuana - Past Family History Father Additional Family Medical History / Comment(s): Biological father in his 60s from complications of an ankle surgery. Mother Additional Family Medical History / Comment(s): Biological mother in her 50s from suicide. Sister(s) Additional Family Medical History / Comment(s): He has 8 sisters with no major medical problems. Patient does not have any children. General Exam General appearance: alert, in no apparent distress Head exam: Present: atraumatic, normocephalic Eye exam: Present: normal appearance, PERRL ENT exam: Present: normal exam Neck exam: Present: normal inspection. Absent: tenderness, meningismus Respiratory exam: Present: normal lung sounds bilaterally. Absent: respiratory distress, wheezes Cardiovascular Exam: Present: regular rate, normal rhythm GI/Abdominal exam: Present: soft. Absent: distended, tenderness, guarding Extremities exam: Present: other (Patient has pain in the anterior left hip. Patient was improved with flexion. No external signs trauma. Distal pulses are intact 2+, dorsalis pedis on the left.) Neurological exam: Present: alert, oriented X3, CN II-XII intact. Absent: motor sensory deficit Psychiatric exam: Present: normal affect, normal mood Skin exam: Present: warm, dry, intact. Absent: cyanosis, diaphoretic Course Vital Signs 01/24/20 19:17 Temperature 97 F L Pulse Rate 95 Respiratory 18 Rate Blood Pressure 141/82 O2 Sat by Pulse 98 Oximetry Medical Decision Making - Medical Decision Making Patient has follow-up with both neurology, orthopedic surgery and primary. He is given a dose of Decadron in the emergency department this does improve his pain. He is currently on [place] at home. Disposition Clinical Impression: Degenerative arthritis, Left hip pain Disposition: HOME SELF-CARE Condition: Fair Instructions (If sedation given, give patient instructions): Osteoarthritis (ED), Hip Pain (ED) Is patient prescribed a controlled substance at d/c from ED?: No Referrals: Rubi Ruiz MD [Primary Care Provider] - 1-2 days David Shahid DO [Doctor of Osteopathic Medicine] - 1-2 days Time of Disposition: 19:47
== END 2020-01-24 21:03 | disposition home or self-care (01) ==
LOC: EC 19:12
DX: M16.12 Unilateral primary osteoarthritis, left hip (principal); F31.9 Bipolar disorder, unspecified; F90.9 Attention-deficit hyperactivity disorder, unspecified type; I10 Essential (primary) hypertension; Z79.899 Other long term (current) drug therapy; Z79.02 Long term (current) use of antithrombotics/antiplatelets; Z98.890 Other specified postprocedural states; Z86.73 Personal history of transient ischemic attack (TIA), and cerebral infarction without residual deficits; Z87.891 Personal history of nicotine dependence
CPT/HCPCS: 96372; 99284; J1100

== ENCOUNTER 2020-02-15 11:04 | Emergency (ER) | payer OTHER ==
[2020-02-15 11:08] VITALS: BP 153/81; PULSE 97; RESP 18; TEMP 98
--- NOTE | 2020-02-15 11:25 | ED ---
General Adult HPI - General Chief complaint: Recheck/Abnormal Lab/Rx Stated complaint: Med Refill Time Seen by Provider: 02/15/20 11:09 Source: patient, RN notes reviewed Mode of arrival: ambulatory Limitations: no limitations - History of Present Illness Initial comments: 60-year-old male presents to the emergency department for medication refill. Patient is requesting a refill of his Vyvanse. Patient usually has this prescribed by his psychiatrist. Patient presents today with a letter from his therapist stating his psychiatrist is ill and is unable to prescribe this. Therapist is requesting a 1-2 week prescription.Patient has no other complaints at this time including shortness of breath, chest pain, abdominal pain, nausea or vomiting, headache, or visual changes. - Related Data Home Medications Medication Instructions Recorded Confirmed Atorvastatin [Lipitor] 20 mg PO HS 01/21/18 02/12/20 amLODIPine [Norvasc] 5 mg PO BID 01/21/18 02/12/20 ALPRAZolam [Xanax] 1 mg PO TID PRN 07/30/19 02/12/20 Clopidogrel [Plavix] 75 mg PO DAILY 07/30/19 02/12/20 Divalproex [Depakote] 500 mg PO HS 07/30/19 02/12/20 Famotidine 20 mg PO DAILY PRN 07/30/19 02/12/20 HYDROcodone/APAP 10-325MG [[place] 1 tab PO TID 07/30/19 02/12/20 10-325] Lisdexamfetamine Dimesylate 70 mg PO QAM 07/30/19 02/12/20 [Vyvanse] Acetaminophen [Tylenol Extra 500 mg PO DIRECTED PRN 02/12/20 02/12/20 Strength] Ibuprofen [Motrin Ib] 200 mg PO DIRECTED PRN 02/12/20 02/12/20 Pregabalin [Lyrica] 400 mg PO BID 02/12/20 02/12/20 Previous Rx's Medication Instructions Recorded Lisdexamfetamine Dimesylate 70 mg PO QAM 7 Days #7 cap 02/15/20 [Vyvanse] Allergies Allergy/AdvReac Type Severity Reaction Status Date / Time No Known Allergies Allergy Verified 02/15/20 11:05 Review of Systems ROS Statement: Those systems with pertinent positive or pertinent negative responses have been documented in the HPI. ROS Other: All systems not noted in ROS Statement are negative. Past Medical History Past Medical History: Diabetes Mellitus, Deep Vein Thrombosis (DVT), Hypertension Additional Past Medical History / Comment(s): Hernia, degenerative arthritis, ADD, ADHD History of Any Multi-Drug Resistant Organisms: None Reported Past Surgical History: Hernia Repair, Orthopedic Surgery Additional Past Surgical History / Comment(s): Umbilical hernia repair, I&D of the left foot between the fourth and fifth toes 2016 Past Anesthesia/Blood Transfusion Reactions: No Reported Reaction Past Psychological History: ADD/ADHD, Bipolar, Depression Smoking Status: Current some day smoker Past Alcohol Use History: None Reported Past Drug Use History: Marijuana - Past Family History Father Additional Family Medical History / Comment(s): Biological father in his 60s from complications of an ankle surgery. Mother Additional Family Medical History / Comment(s): adopted Sister(s) Additional Family Medical History / Comment(s): He has 8 sisters with no major medical problems. Patient does not have any children. General Exam Limitations: no limitations General appearance: alert, in no apparent distress Head exam: Present: atraumatic, normocephalic, normal inspection Eye exam: Present: normal appearance, PERRL, EOMI. Absent: scleral icterus, conjunctival injection, periorbital swelling ENT exam: Present: normal exam, mucous membranes moist Neck exam: Present: normal inspection, full ROM. Absent: tenderness, meni ngismus, lymphadenopathy Respiratory exam: Present: normal lung sounds bilaterally. Absent: respiratory distress, wheezes, rales, rhonchi, stridor Cardiovascular Exam: Present: regular rate, normal rhythm, normal heart sounds. Absent: systolic murmur, diastolic murmur, rubs, gallop, clicks Course Vital Signs 02/15/20 11:05 Temperature 98 F Pulse Rate 97 Respiratory 18 Rate Blood Pressure 153/81 O2 Sat by Pulse 99 Oximetry Medical Decision Making - Medical Decision Making I did review patient's report and he does not have active Rx of vyvanse. I did write patient a seven-day supply Vyvanse but discussed that we will not be able to write any further medication refills through the ER for this. He is aware to either speak with his primary care doctor or have his therapist call his primary care doctor. Disposition Clinical Impression: Encounter for medication refill Disposition: HOME SELF-CARE Condition: Good Instructions (If sedation given, give patient instructions): Medicine Refill (ED) Additional Instructions: Please speak to your primary care doctor or psychiatrist for further refills. Prescriptions: Lisdexamfetamine Dimesylate [Vyvanse] 70 mg PO QAM 7 Days #7 cap Is patient prescribed a controlled substance at d/c from ED?: No Referrals: Rubi Ruiz MD [Primary Care Provider] - 1-2 days Time of Disposition: 11:21
== END 2020-02-15 11:46 | disposition home or self-care (01) ==
LOC: EC 11:04
DX: Z76.0 Encounter for issue of repeat prescription (principal); I10 Essential (primary) hypertension; M19.90 Unspecified osteoarthritis, unspecified site; F32.9 Major depressive disorder, single episode, unspecified; F90.9 Attention-deficit hyperactivity disorder, unspecified type; F17.200 Nicotine dependence, unspecified, uncomplicated; Z79.02 Long term (current) use of antithrombotics/antiplatelets; Z79.899 Other long term (current) drug therapy; Z79.891 Long term (current) use of opiate analgesic; Z86.718 Personal history of other venous thrombosis and embolism
CPT/HCPCS: 99281

== ENCOUNTER → 2020-06-05 | Outpatient (CLI) | payer OTHER ==
--- NOTE | 2020-06-06 07:04 | US ---
EXAMINATION TYPE: US scrotum with doppler. Grayscale and color Doppler Duplex imaging performed of t he scrotum. DATE OF EXAM: 06/05/2020 COMPARISON: NONE CLINICAL HISTORY: N50.89 Swelling of R testicle. known hydrocele for over 1 year, patient states it i s getting bigger now EXAM MEASUREMENTS: TESTICLES: Right Testicle: 3.9 x 2.5 x 2.5 cm Left Testicle: 3.6 x 2.5 x 2.4 cm EPIDIDYMIS HEAD: Right Epididymis: 1.5 cm Left Epididymis: 1.1 cm Doppler performed to assess for testicular vascularity; good bilateral color flow and waveforms are s een. There is no evidence of testicular torsion. Presence of hydroceles: large on the right with internal debris, smaller amount seen on the left wit h dependant stone Presence of varicoceles: no IMPRESSION: Large right-sided hydrocele.
== END | disposition home or self-care (01) ==
LOC: RADUSWWP 16:14
PROVIDERS: ATTEND Family Medicine
DX: N43.3 Hydrocele, unspecified (principal); N50.89 Other specified disorders of the male genital organs
CPT/HCPCS: 76870; 93975

== ENCOUNTER → 2020-08-06 | Outpatient (CLI) | payer OTHER ==
[2020-08-06 16:53] LABS: HCT 39.9 % (39.6-50.0); HGB 12.9 g/dL (13.0-17.0); MCH 31.5 pg (27.0-32.0); MCHC 32.3 g/dL (32.0-37.0); MCV 97.3 fL (80.0-97.0); Mean Platelet Volume 11.6 fL (9.5-12.2); Platelet Count 190 X 10*3/uL (140-440); RDW 13.4 % (11.5-14.5); WBC 6.14 X 10*3/uL (4.50-10.00)
[2020-08-06 18:33] LABS: Hemoglobin A1C 8.3 % (4.0-6.0)
[2020-08-06 19:05] LABS: Ferritin 79.8 ng/mL (22.0-322.0)
[2020-08-06 19:17] LABS: % Iron Saturation 17.5 (15.00-50.00); African American GFR (CKD) 111.7 (60.0-200.0); Albumin 4.3 g/dL (3.80-4.90); Albumin/Globulin Ratio 2.69 (1.60-3.17); Anion Gap 4.5 mmol/L (4.00-12.00); BUN/Creat Ratio 22.5 Ratio (12.00-20.00); Calcium 9.2 mg/dL (8.7-10.3); Carbon Dioxide 26.5 mmol/L (21.6-31.8); Globulin 1.6 g/dL (1.6-3.3); Non-African American GFR(CKD) 96.4 (60.0-200.0); Potassium 4.2 mmol/L (3.5-5.5); Total Bilirubin 0.3 mg/dL (0.2-1.2); Total Protein 5.9 g/dL (6.2-8.2)
== END | disposition home or self-care (01) ==
LOC: LABWHC1 07:08
PROVIDERS: ATTEND Psychiatry & Neurology Pain Medicine
DX: R53.83 Other fatigue (principal)
CPT/HCPCS: 36415; 80053; 82550; 82728; 83036; 83540; 83550; 84439; 84443; 84466; 84481; 85027

== ENCOUNTER 2020-10-20 | Emergency (ER) | payer OTHER | END 2020-10-20 21:52 | disposition home or self-care (01) | DX: F10.129 Alcohol abuse with intoxication, unspecified (principal) ==

== ENCOUNTER 2020-12-05 12:23 | Emergency (ER) | payer OTHER ==
[2020-12-05 12:30] VITALS: BP 160/84; PULSE 83; RESP 18; TEMP 98.2
--- NOTE | 2020-12-05 13:03 | ED ---
Recheck HPI - General Chief Complaint: Recheck/Abnormal Lab/Rx Stated Complaint: med refill Time Seen by Provider: 12/05/20 12:32 Source: patient Mode of arrival: ambulatory Limitations: no limitations - History of Present Illness Initial Comments: 60-year-old male presenting to emergency developed a chief complaint of presenting to emergency Department for medication refill. Patient brought a letter from his counselor, lane freeman, that was requesting medication refill. Patient states his psychiatrist recently retired and he has an appointment with a new psychiatrist but is not able to get in for another month. Patient is requesting location refill for Vyvanse, Depakote and Xanax. He states he has been on these medications for many years and is not able to fully function without it. - Related Data Home Medications Medication Instructions Recorded Confirmed Atorvastatin [Lipitor] 20 mg PO HS 01/21/18 02/12/20 amLODIPine [Norvasc] 5 mg PO BID 01/21/18 02/12/20 ALPRAZolam [Xanax] 1 mg PO TID PRN 07/30/19 02/12/20 Clopidogrel [Plavix] 75 mg PO DAILY 07/30/19 02/12/20 Divalproex [Depakote] 500 mg PO HS 07/30/19 02/12/20 Famotidine 20 mg PO DAILY PRN 07/30/19 02/12/20 HYDROcodone/APAP 10-325MG [[place] 1 tab PO TID 07/30/19 02/12/20 10-325] Lisdexamfetamine Dimesylate 70 mg PO QAM 07/30/19 02/12/20 [Vyvanse] Acetaminophen [Tylenol Extra 500 mg PO DIRECTED PRN 02/12/20 02/12/20 Strength] Ibuprofen [Motrin Ib] 200 mg PO DIRECTED PRN 02/12/20 02/12/20 Pregabalin [Lyrica] 400 mg PO BID 02/12/20 02/12/20 Previous Rx's Medication Instructions Recorded Lisdexamfetamine Dimesylate 70 mg PO QAM 7 Days #7 cap 02/15/20 [Vyvanse] ALPRAZolam [Xanax] 1 mg PO TID PRN 3 Days #9 tab 12/05/20 Divalproex [Depakote] 500 mg PO DAILY #30 tab 12/05/20 Lisdexamfetamine Dimesylate 70 mg PO QAM 3 Days #7 cap 12/05/20 [Vyvanse] Allergies Allergy/AdvReac Type Severity Reaction Status Date / Time No Known Allergies Allergy Verified 02/15/20 11:05 Review of Systems ROS Statement: Those systems with pertinent positive or pertinent negative responses have been documented in the HPI. ROS Other: All systems not noted in ROS Statement are negative. Past Medical History Past Medical History: Diabetes Mellitus, Deep Vein Thrombosis (DVT), Hypertension Additional Past Medical History / Comment(s): Hernia, degenerative arthritis, ADD, ADHD History of Any Multi-Drug Resistant Organisms: None Reported Past Surgical History: Hernia Repair, Orthopedic Surgery Additional Past Surgical History / Comment(s): Umbilical hernia repair, I&D of the left foot between the fourth and fifth toes 2016 Past Anesthesia/Blood Transfusion Reactions: No Reported Reaction Past Psychological History: ADD/ADHD, Bipolar, Depression Smoking Status: Current some day smoker Past Alcohol Use History: Abuse Past Drug Use History: Marijuana - Past Family History Father Additional Family Medical History / Comment(s): Biological father in his 60s from complications of an ankle surgery. Mother Additional Family Medical History / Comment(s): adopted Sister(s) Additional Family Medical History / Comment(s): He has 8 sisters with no major medical problems. Patient does not have any children. General Exam Limitations: no limitations General appearance: alert, in no apparent distress Head exam: Present: atraumatic, normocephalic, normal inspection Eye exam: Present: normal appearance ENT exam: Present: normal exam, normal oropharynx, mucous membranes moist Neck exam: Present: normal inspection Respiratory exam: Present: normal lung sounds bilaterally Cardiovascular Exam: Present: regular rate, normal rhythm, normal heart sounds Extremities exam: Present: normal inspection, full ROM Back exam: Present: normal inspection, full ROM Neurological exam: Present: alert, oriented X3 Psychiatric exam: Present: normal affect, normal mood Skin exam: Present: warm, dry, intact, normal color Course Vital Signs 12/05/20 12/05/20 12:26 13:19 Temperature 98.2 F 98.2 F Pulse Rate 83 83 Respiratory 18 18 Rate Blood Pressure 160/84 160/84 O2 Sat by Pulse 98 98 Oximetry Medical Decision Making - Medical Decision Making 60-year-old male presenting to emergency department for a chief complaint of medication refill. Patient was given a refill for his Vyvanse, Xanax and Depakote. The control substances were only given 3 days of medication.MAPS obtained shows medication refills on appropriate days. Return parameters were thoroughly discussed patient is understanding and agreeable. Case discussed with Dr. Green. Disposition Clinical Impression: Encounter for medication refill Disposition: HOME SELF-CARE Condition: Stable Instructions (If sedation given, give patient instructions): Alprazolam (By mouth) Additional Instructions: Please return to the Emergency Department if symptoms worsen or any other concerns. Prescriptions: Divalproex [Depakote] 500 mg PO DAILY #30 tab Lisdexamfetamine Dimesylate [Vyvanse] 70 mg PO QAM 3 Days #7 cap ALPRAZolam [Xanax] 1 mg PO TID PRN 3 Days #9 tab PRN Reason: Anxiety Is patient prescribed a controlled substance at d/c from ED?: Yes If prescribed controlled substance>3 days was MAPS reviewed?: Prescribed <3 Days Referrals: Rubi Ruiz MD [Primary Care Provider] - 1-2 days Time of Disposition: 13:03
== END 2020-12-05 13:20 | disposition home or self-care (01) ==
LOC: EC 12:23
DX: Z76.0 Encounter for issue of repeat prescription (principal); E11.9 Type 2 diabetes mellitus without complications; I10 Essential (primary) hypertension; F90.9 Attention-deficit hyperactivity disorder, unspecified type; F31.9 Bipolar disorder, unspecified; F17.200 Nicotine dependence, unspecified, uncomplicated; F12.90 Cannabis use, unspecified, uncomplicated; Z86.718 Personal history of other venous thrombosis and embolism; Z79.02 Long term (current) use of antithrombotics/antiplatelets
CPT/HCPCS: 99281

== ENCOUNTER 2020-12-20 10:16 | Emergency (ER) | payer OTHER ==
[2020-12-20 10:23] VITALS: BP 135/77; PULSE 78; RESP 18; TEMP 97.4
--- NOTE | 2020-12-20 10:43 | ED ---
General Adult HPI - General Chief complaint: Recheck/Abnormal Lab/Rx Stated complaint: med refill Time Seen by Provider: 12/20/20 10:33 Source: patient, RN notes reviewed Mode of arrival: ambulatory Limitations: no limitations - History of Present Illness Initial comments: This a 60-year-old male presents emergency Department with chief complaint of needing medication refill. Patient states his psychiatrist retired he has an appointment 1 week from today. Patient denies any suicidal or homicidal ideation. He states that he had some racing thoughts but offers no complaints. - Related Data Home Medications Medication Instructions Recorded Confirmed Atorvastatin [Lipitor] 20 mg PO HS 01/21/18 02/12/20 amLODIPine [Norvasc] 5 mg PO BID 01/21/18 02/12/20 ALPRAZolam [Xanax] 1 mg PO TID PRN 07/30/19 02/12/20 Clopidogrel [Plavix] 75 mg PO DAILY 07/30/19 02/12/20 Divalproex [Depakote] 500 mg PO HS 07/30/19 02/12/20 Famotidine 20 mg PO DAILY PRN 07/30/19 02/12/20 HYDROcodone/APAP 10-325MG [[place] 1 tab PO TID 07/30/19 02/12/20 10-325] Lisdexamfetamine Dimesylate 70 mg PO QAM 07/30/19 02/12/20 [Vyvanse] Acetaminophen [Tylenol Extra 500 mg PO DIRECTED PRN 02/12/20 02/12/20 Strength] Ibuprofen [Motrin Ib] 200 mg PO DIRECTED PRN 02/12/20 02/12/20 Pregabalin [Lyrica] 400 mg PO BID 02/12/20 02/12/20 Previous Rx's Medication Instructions Recorded Lisdexamfetamine Dimesylate 70 mg PO QAM 7 Days #7 cap 02/15/20 [Vyvanse] Divalproex [Depakote] 500 mg PO DAILY #30 tab 12/05/20 ALPRAZolam [Xanax] 1 mg PO TID PRN 3 Days #9 tab 12/20/20 Lisdexamfetamine Dimesylate 70 mg PO QAM 3 Days #7 cap 12/20/20 [Vyvanse] Allergies Allergy/AdvReac Type Severity Reaction Status Date / Time No Known Allergies Allergy Verified 12/20/20 10:23 Review of Systems ROS Statement: Those systems with pertinent positive or pertinent negative responses have been documented in the HPI. ROS Other: All systems not noted in ROS Statement are negative. Past Medical History Past Medical History: Diabetes Mellitus, Deep Vein Thrombosis (DVT), Hypertension Additional Past Medical History / Comment(s): Hernia, degenerative arthritis, ADD, ADHD History of Any Multi-Drug Resistant Organisms: None Reported Past Surgical History: Hernia Repair, Orthopedic Surgery Additional Past Surgical History / Comment(s): Umbilical hernia repair, I&D of the left foot between the fourth and fifth toes 2016 Past Anesthesia/Blood Transfusion Reactions: No Reported Reaction Past Psychological History: ADD/ADHD, Bipolar, Depression Smoking Status: Current some day smoker Past Alcohol Use History: Abuse Past Drug Use History: Marijuana - Past Family History Father Additional Family Medical History / Comment(s): Biological father in his 60s from complications of an ankle surgery. Mother Additional Family Medical History / Comment(s): adopted Sister(s) Additional Family Medical History / Comment(s): He has 8 sisters with no major medical problems. Patient does not have any children. General Exam Limitations: no limitations General appearance: alert, in no apparent distress Head exam: Present: atraumatic, normocephalic, normal inspection Respiratory exam: Present: normal lung sounds bilaterally. Absent: respiratory distress, wheezes, rales, rhonchi, stridor Cardiovascular Exam: Present: regular rate, normal rhythm, normal heart sounds. Absent: systolic murmur, diastolic murmur, rubs, gallop, clicks GI/Abdominal exam: Present: soft, normal bowel sounds. Absent: distended, tenderness, guarding, rebound, rigid Neurological exam: Present: alert, oriented X3 Psychiatric exam: Present: normal affect, normal mood Skin exam: Present: warm, dry, intact, normal color. Absent: rash Course Vital Signs 12/20/20 10:19 Temperature 97.4 F L Pulse Rate 78 Respiratory 18 Rate Blood Pressure 135/77 O2 Sat by Pulse 98 Oximetry Medical Decision Making - Medical Decision Making Patient given one week's worth of his medications. Patient hasn't scheduled appointment he is advised that he needs to have his medications refilled on that day Disposition Clinical Impression: Generalized anxiety disorder Disposition: HOME SELF-CARE Condition: Stable Additional Instructions: Please return to the Emergency Department if symptoms worsen or any other concerns. Prescriptions: Lisdexamfetamine Dimesylate [Vyvanse] 70 mg PO QAM 3 Days #7 cap ALPRAZolam [Xanax] 1 mg PO TID PRN 3 Days #9 tab PRN Reason: Anxiety Is patient prescribed a controlled substance at d/c from ED?: Yes When asked, does pt state using other controlled substances?: Yes If prescribed controlled substance>3 days was MAPS reviewed?: Yes Referrals: Rubi Ruiz MD [Primary Care Provider] - 1-2 days Time of Disposition: 10:43
== END 2020-12-20 11:27 | disposition home or self-care (01) ==
LOC: EC 10:16
DX: F41.1 Generalized anxiety disorder (principal); E11.9 Type 2 diabetes mellitus without complications; I10 Essential (primary) hypertension; F90.9 Attention-deficit hyperactivity disorder, unspecified type; F31.9 Bipolar disorder, unspecified; F17.200 Nicotine dependence, unspecified, uncomplicated; F12.90 Cannabis use, unspecified, uncomplicated; Z79.899 Other long term (current) drug therapy; Z86.718 Personal history of other venous thrombosis and embolism; Z79.02 Long term (current) use of antithrombotics/antiplatelets
CPT/HCPCS: 99283

== ENCOUNTER → 2021-02-04 | Outpatient (CLI) | payer OTHER | END | disposition home or self-care (01) | LOC: LABWHC1 07:03 | PROVIDERS: ATTEND Psychiatry & Neurology Pain Medicine | DX: Z51.81 Encounter for therapeutic drug level monitoring (principal) | CPT/HCPCS: 36415; 83540 ==

== ENCOUNTER → 2021-02-10 | Outpatient (CLI) | payer OTHER ==
--- NOTE | 2021-02-10 12:23 | CTL ---
EXAMINATION TYPE: CT Low Dose Lung DATE OF EXAM ORDERED: 02/10/2021 HISTORY: 61-year-old male Z7 2.0, tobacco use. Lung cancer screening CT DLP: 73 mGycm Automated exposure control for dose reduction was used. SCREENING VISIT: Baseline screening COMPARISON: 09/26/2015 TECHNIQUE: Low dose computed tomography scan was performed through the chest with coronal and sagitta l reconstructions. CT DIAGNOSTIC QUALITY: Satisfactory FINDINGS: Heart normal size without pericardial effusion. Scattered three-vessel coronary artery calcifications are present. Aorta normal caliber with with mild atherosclerotic arch calcifications and conventional arch vessel branching anatomy. Possible hypodense nodule posterior right thyroid lobe measuring 1.2 cm can be further evaluated with thyroid ultrasound. No thoracic lymphadenopathy by CT size criteria. Mild biapical pleural-parenchymal scarring. Mild centrilobular and paraseptal emphysema. Mild diffuse bronchial wall thickening. Mild dependent atelectatic along the posterior mid and lower lungs. No consolidation or pleural effusion. Visualized upper abdomen shows no gross abnormality. Bones: Degenerative changes sternoclavicular joints. Minimal anterior endplate spondylosis lower thor acic spine. IMPRESSION: 1. LungRADS 1, negative. No suspicious pulmonary nodule or mass. 2. COPD with mild emphysema. Recommend smoking cessation. 3. CAD with scattered three-vessel coronary artery calcifications. 4. Possible 1.2 cm right thyroid lobe nodule posteriorly. Thyroid ultrasound can further evaluate. CT LUNG RAD AND CT CHEST RECOMMENDATION: Lung-Rad 1 Negative: Continue annual screening with LDCT in 12 months. S Modifier (other clinically significant findings): S, thyroid ultrasound for possible 1.2 cm nodule on the right.
== END | disposition home or self-care (01) ==
LOC: RADCTMAIN 08:54
PROVIDERS: ATTEND Family Medicine
DX: Z12.2 Encounter for screening for malignant neoplasm of respiratory organs (principal); Z72.0 Tobacco use; J43.9 Emphysema, unspecified
CPT/HCPCS: 71271

== ENCOUNTER → 2021-04-24 | Outpatient (CLI) | payer OTHER ==
--- NOTE | 2021-04-25 14:56 | US ---
EXAMINATION TYPE: US thyroid st tissue head/neck DATE OF EXAM: 04/24/2021 COMPARISON: CT lung CLINICAL HISTORY: E04.1 THYROID NODULE. Right thyroid nodule per CT GLAND SIZE: Right Lobe: 5.5 x 1.9 x3.1 cm Overall Parenchyma: homogenous Left Lobe: no homogeneous to limited tissue seen here Isthmus Thickness: 0.4 cm NODULES RIGHT: # of nodules measured on right: 2 1. 0.5 X 0.3 x 0.3 cm, mid pole, cystic, anechoic nodule, which is wide as is tall, with smooth mar gins, without echogenic foci. Prior size: no previous 2. 1.3 X 1.5 x 1.1 cm, lower lateral, mixed cystic, hypoechoic nodule, which is wider than tall, wi th irregular margins, without echogenic foci. TR 3 LEFT: # of nodules measured on left: 0 ISTHMUS: # of nodules measured in the isthmus: 0 Bilateral neck scanned: no evidence of lymphadenopathy. IMPRESSION: 1. Mildly suspicious nodule left lobe thyroid. Consider follow-up. 2017 ACR TI-RADS LEVEL: TR-RADS 3 - Mildly Suspicious: Follow if > 1.5 cm, FNA if > 2.5 cm *Highest TI-RADS level nodule reported
== END | disposition home or self-care (01) ==
LOC: RADUSWWP 15:44
PROVIDERS: ATTEND Family Medicine
DX: E04.1 Nontoxic single thyroid nodule (principal)
CPT/HCPCS: 76536

== ENCOUNTER 2021-09-26 13:49 | Emergency (ER) | payer OTHER ==
[2021-09-26 13:58] VITALS: BP 156/79; PULSE 88; RESP 16; TEMP 98.3
[2021-09-26] MEDS ORDERED: AMPICILLIN-SULBACTAM 3 GM in SODIUM CHLORIDE 0.9% 100 ML IVPB STA (14:53)
--- NOTE | 2021-09-26 15:19 | XR ---
Right hand HISTORY: Trauma and pain 3 views the right hand There are marked arthropathy changes. Cystic lucency present at the distal ulna. There are likely jaswinder de present within the carpal bones. Remodeling present at the radiocarpal joint, hypertrophic changes with sclerosis present at the carpometacarpal joint first digit. Difficult to exclude loose body pos terior aspect of the wrist. No evident acute fracture or dislocation. Thickening of the fourth metaca rpal thought likely to due to to remote trauma, fracture and healing, correlate. There is soft tissue swelling. No radiopaque foreign body. IMPRESSION: Correlate for cellulitis. Additional findings above.
--- NOTE | 2021-09-26 15:33 | ED ---
Animal Bite HPI - General Chief Complaint: Animal Bite Stated Complaint: Cat bite/hand injury Time Seen by Provider: 09/26/21 14:32 Source: patient Mode of arrival: ambulatory Limitations: no limitations - History of Present Illness Initial Comments: Patient is a 61-year-old male who presents to the emergency department for evaluation of right hand redness and swelling Patient states his cat bit his hand 4 days ago. There is no concern for rabies. Patient states cat is up-to-date on vaccination. On the same day patient's weed ben fell onto his right hand which caused pain. Over the next couple days patient noticed increased pain, swelling, and redness. States he is unsure if it was from the cat or the injury. Patient states he is unable to move his right fourth finger. Denies fever and chills. - Related Data Home Medications Medication Instructions Recorded Confirmed Atorvastatin [Lipitor] 20 mg PO HS 01/21/18 02/12/20 amLODIPine [Norvasc] 5 mg PO BID 01/21/18 02/12/20 ALPRAZolam [Xanax] 1 mg PO TID PRN 07/30/19 02/12/20 Clopidogrel [Plavix] 75 mg PO DAILY 07/30/19 02/12/20 Divalproex [Depakote] 500 mg PO HS 07/30/19 02/12/20 Famotidine 20 mg PO DAILY PRN 07/30/19 02/12/20 HYDROcodone/APAP 10-325MG [[place] 1 tab PO TID 07/30/19 02/12/20 10-325] Lisdexamfetamine Dimesylate 70 mg PO QAM 07/30/19 02/12/20 [Vyvanse] Acetaminophen [Tylenol Extra 500 mg PO DIRECTED PRN 02/12/20 02/12/20 Strength] Ibuprofen [Motrin Ib] 200 mg PO DIRECTED PRN 02/12/20 02/12/20 Pregabalin [Lyrica] 400 mg PO BID 02/12/20 02/12/20 Previous Rx's Medication Instructions Recorded Lisdexamfetamine Dimesylate 70 mg PO QAM 7 Days #7 cap 02/15/20 [Vyvanse] Divalproex [Depakote] 500 mg PO DAILY #30 tab 12/05/20 ALPRAZolam [Xanax] 1 mg PO TID PRN 3 Days #9 tab 12/20/20 Lisdexamfetamine Dimesylate 70 mg PO QAM 3 Days #7 cap 12/20/20 [Vyvanse] Amoxic-Pot Clav 875-125Mg 1 tab PO Q12HR 14 Days #28 tab 09/26/21 [Augmentin 875-125] Sulfamethox-Tmp 800-160Mg [Bactrim 1 tab PO Q12HR 14 Days #28 tab 09/26/21 DS 800-160 mg] Allergies Allergy/AdvReac Type Severity Reaction Status Date / Time No Known Allergies Allergy Verified 09/26/21 13:58 Review of Systems ROS Statement: Those systems with pertinent positive or pertinent negative responses have been documented in the HPI. ROS Other: All systems not noted in ROS Statement are negative. Past Medical History Past Medical History: Diabetes Mellitus, Deep Vein Thrombosis (DVT), Hypertension Additional Past Medical History / Comment(s): Hernia, degenerative arthritis, ADD, ADHD History of Any Multi-Drug Resistant Organisms: None Reported Past Surgical History: Hernia Repair, Orthopedic Surgery Additional Past Surgical History / Comment(s): Umbilical hernia repair, I&D of the left foot between the fourth and fifth toes 2016 Past Anesthesia/Blood Transfusion Reactions: No Reported Reaction Past Psychological History: ADD/ADHD, Bipolar, Depression Smoking Status: Current some day smoker Past Alcohol Use History: Abuse Past Drug Use History: Marijuana - Past Family History Father Additional Family Medical History / Comment(s): Biological father in his 60s from complications of an ankle surgery. Mother Additional Family Medical History / Comment(s): adopted Sister(s) Additional Family Medical History / Comment(s): He has 8 sisters with no major medical problems. Patient does not have any children. General Exam Limitations: no limitations General appearance: alert, in no apparent distress Head exam: Present: atraumatic, normocephalic, normal inspection Eye exam: Present: normal appearance, PERRL, EOMI. Absent: scleral icterus, conjunctival injection, periorbital swelling Respiratory exam: Present: normal lung sounds bilaterally. Absent: respiratory distress, wheezes, rales, rhonchi, stridor Cardiovascular Exam: Present: regular rate, normal rhythm, normal heart sounds. Absent: systolic murmur, diastolic murmur, rubs, gallop, clicks Extremities exam: Present: other (Right hand significantly swollen and erythematous through the right wrist. 2 puncture wounds on dorsal aspect of right hand with purulent drainage) Neurological exam: Present: alert, oriented X3, CN II-XII intact Psychiatric exam: Present: normal affect, normal mood Skin exam: Present: warm, dry, intact Course Vital Signs 09/26/21 13:56 Temperature 98.3 F Pulse Rate 88 Respiratory 16 Rate Blood Pressure 156/79 O2 Sat by Pulse 97 Oximetry Medical Decision Making - Medical Decision Making This is a 61-year-old male who presents for evaluation of right hand redness, swelling, and pain. Thorough history and examination were performed. Patient's cat bit him 4 days ago. Also had weed ben injury that same day. The right hand is significantly swollen and erythematous through the right wrist. 2 puncture wounds are visualized on dorsal aspect of right hand with purulent drainage. The right fourth digit is stuck in flexion. There is extreme pain with passive movement of this digit reflecting extensor tenosynovitis. I will obtain x-ray due to potential injury however it is very likely the patient's symptoms are due to cat bite as there is significant cellulitis with obvious bite carver and purulent drainage. Right hand x-ray is negative for fracture or dislocation. With significant cellulitis and tendon sheath involvement patient will need to be admitted for IV antibiotics and hand surgeon consult. Patient declines admission as he states he has left his home unattended. I told patient I would like him to stay since infection likely fail on outpatient antibiotics. Patient does not want to stay. Risks of untreated cellulitis discussed. I will refer patient to hand surgeon. He is instructed to make an appointment tomorrow. Patient will be discharged with strict return parameters. He is to watch the infection closely and if it worsens or he experiences new or concerning symptoms he will need to come back to the emergency department right away. I did shawanda the cellulitis on his wrist so he is able to assess it easier. Patient verbalizes understanding. He received 1 dose of IV zosyn prior to discharge and was sent home with Augmentin and Bactrim. Dr. Soriano is my attending. Disposition Clinical Impression: Cat bite, Extensor tenosynovitis of finger, Cellulitis Disposition: HOME SELF-CARE Condition: Fair Instructions (If sedation given, give patient instructions): Animal Bite (ED) Additional Instructions: Please take antibiotic as directed. It is extremely important to monitor redness and swelling of the hand very closely. If redness and swelling travels or gets worse or if pain worsens you will need to come back to the emergency department right away. Please return if you experience new or concerning symptoms. If not follow-up with the hand surgeon listed in discharge papers. Take Tylenol for pain. Prescriptions: Amoxic-Pot Clav 875-125Mg [Augmentin 875-125] 1 tab PO Q12HR 14 Days #28 tab Sulfamethox-Tmp 800-160Mg [Bactrim DS 800-160 mg] 1 tab PO Q12HR 14 Days #28 tab Is patient prescribed a controlled substance at d/c from ED?: No Referrals: Rubi Ruiz MD [Primary Care Provider] - 1-2 days Juan Manuel Doe DO [Doctor of Osteopathic Medicine] - 1-2 days Time of Disposition: 15:33
== END 2021-09-26 15:56 | disposition home or self-care (01) ==
LOC: EC 13:49
DX: S61.451A Open bite of right hand, initial encounter (principal); M65.849 Other synovitis and tenosynovitis, unspecified hand; I10 Essential (primary) hypertension; E11.9 Type 2 diabetes mellitus without complications; F17.200 Nicotine dependence, unspecified, uncomplicated; W55.01XA Bitten by cat, initial encounter
CPT/HCPCS: 36415; 87040; 73130; 99283; 96365; J0295

== ENCOUNTER 2021-10-06 18:53 | Observation (INO) | payer OTHER ==
[2021-10-06] MEDS ORDERED: ASPIRIN 81 MG PO STA (19:25)
[2021-10-06] MEDS ORDERED: NITROGLYCERIN SL TABS 0.4 MG TAB SUBLINGUAL STA (19:25)
--- NOTE | 2021-10-06 20:05 | ED ---
General Adult HPI - General Chief complaint: Chest Pain Stated complaint: Chest Pain/dizziness Time Seen by Provider: 10/06/21 19:13 Source: patient, RN notes reviewed, old records reviewed Mode of arrival: ambulatory Limitations: no limitations - History of Present Illness Initial comments: She is a 61-year-old male who presents emergency Department complaining of chest pain. Started earlier today merely following a medication induced stress test. Unknown results of the stress test. Was sent home. States he has been having Persistent chest pressure/achy pain over the left chest since then. Also endorses some lightheadedness earlier which has resolved. Denies shortness of breath. Denies any known provocative or palliative factors other than activity. Denies any fevers, chills. Denies any sick contacts. His no other acute complaint at this time. Presents over concern for his heart. She does have a history of hypertension, diabetes. Is not on blood thinners. States that the pain earlier was approximately 6 out of 10 and is currently 3 out of 10. Presents for further evaluation at this time. - Related Data Home Medications Medication Instructions Recorded Confirmed Atorvastatin [Lipitor] 20 mg PO HS 01/21/18 02/12/20 amLODIPine [Norvasc] 5 mg PO BID 01/21/18 02/12/20 ALPRAZolam [Xanax] 1 mg PO TID PRN 07/30/19 02/12/20 Clopidogrel [Plavix] 75 mg PO DAILY 07/30/19 02/12/20 Divalproex [Depakote] 500 mg PO HS 07/30/19 02/12/20 Famotidine 20 mg PO DAILY PRN 07/30/19 02/12/20 HYDROcodone/APAP 10-325MG [[place] 1 tab PO TID 07/30/19 02/12/20 10-325] Lisdexamfetamine Dimesylate 70 mg PO QAM 07/30/19 02/12/20 [Vyvanse] Acetaminophen [Tylenol Extra 500 mg PO DIRECTED PRN 02/12/20 02/12/20 Strength] Ibuprofen [Motrin Ib] 200 mg PO DIRECTED PRN 02/12/20 02/12/20 Pregabalin [Lyrica] 400 mg PO BID 02/12/20 02/12/20 Previous Rx's Medication Instructions Recorded Lisdexamfetamine Dimesylate 70 mg PO QAM 7 Days #7 cap 02/15/20 [Vyvanse] Divalproex [Depakote] 500 mg PO DAILY #30 tab 12/05/20 ALPRAZolam [Xanax] 1 mg PO TID PRN 3 Days #9 tab 12/20/20 Lisdexamfetamine Dimesylate 70 mg PO QAM 3 Days #7 cap 12/20/20 [Vyvanse] Amoxic-Pot Clav 875-125Mg 1 tab PO Q12HR 14 Days #28 tab 09/26/21 [Augmentin 875-125] Sulfamethox-Tmp 800-160Mg [Bactrim 1 tab PO Q12HR 14 Days #28 tab 09/26/21 DS 800-160 mg] Allergies Allergy/AdvReac Type Severity Reaction Status Date / Time No Known Allergies Allergy Verified 10/06/21 19:07 Review of Systems ROS Statement: Those systems with pertinent positive or pertinent negative responses have been documented in the HPI. Review of Systems: CONST: Denies fever EYES: Denies blurry vision ENT: Denies nasal congestion C/V: Endorses left-sided chest pain. RESP: Denies shortness of breath GI: Denies abdominal pain : Denies dysuria SKIN: Denies rash. MSK: Denies joint pain. NEURO: Denies headache ROS Other: All systems not noted in ROS Statement are negative. Past Medical History Past Medical History: Diabetes Mellitus, Deep Vein Thrombosis (DVT), Hypertension Additional Past Medical History / Comment(s): Hernia, degenerative arthritis, ADD, ADHD History of Any Multi-Drug Resistant Organisms: None Reported Past Surgical History: Hernia Repair, Orthopedic Surgery Additional Past Surgical History / Comment(s): Umbilical hernia repair, I&D of the left foot between the fourth and fifth toes 2016 Past Anesthesia/Blood Transfusion Reactions: No Reported Reaction Past Psychological History: ADD/ADHD, Bipolar, Depression Smoking Status: Current some day smoker Past Alcohol Use History: Abuse Past Drug Use History: Marijuana - Past Family History Father Additional Family Medical History / Comment(s): Biological father in his 60s from complications of an ankle surgery. Mother Additional Family Medical History / Comment(s): adopted Sister(s) Additional Family Medical History / Comment(s): He has 8 sisters with no major medical problems. Patient does not have any children. General Exam - General Exam Comments Initial Comments: General: Appears in no acute distress. HEAD: Normal with no signs of head trauma. EYES: PERRLA, EOMI, conjunctiva normal, no discharge. ENT: Hearing grossly intact, normal oropharynx. RESPIRATORY: Clear breath sounds bilaterally. No wheezes, rales, or rhonchi. C/V: Regular rate and rhythm. S1 and S2 auscultated, no edema, peripheral pulses 2+ and intact throughout. Chest pain nonreproducible on palpation. ABD: Abd is soft, nontender, nondistended EXT: Normal range of motion, no obvious deformity SKIN: No rashes or lesions observed on exposed skin. NEURO: Alert and oriented 4. Limitations: no limitations Course Vital Signs 10/06/21 10/06/21 20:03 20:08 Pulse Rate 78 80 Respiratory 18 18 Rate Blood Pressure 141/69 128/73 O2 Sat by Pulse 95 95 Oximetry Medical Decision Making - Medical Decision Making Based on the patient's presentation and physical exam, concern for cardiopulmonary, etiology for his current symptoms. We do not know the results of his stress test earlier today. Therefore we will obtain cardiac labs including EKG, chest x-ray, basic labs and troponin. He was in agreement this plan. We'll receive an aspirin as well as symmetrical some tablet to assess for pain improvement. Vital signs are within normal limits. EKG shows no signs of acute ischemia. Chest x-ray shows no acute cardio pulmonary process. Laboratory studies are remarkable for a negative troponin.Vital signs remained within normal limits and stable. On reevaluation, following the nitro, patient's chest pain has completely resolved with 3 out of 10 to a 0 out of 10. Due to this response, as well as the patient's cardiac history and unknown stress test results from earlier today, I did recommend we admit the patient. He was in agreement this plan. He'll be started on a heparin drip for potential unstable angina. Vital signs remained within normal limits and stable. Will be admitted on a telemetry bed. Spoke with the on-call observation doctor, Dr. England who accepted the patient. Patient was admitted in stable condition. Echo was ordered. Troponins will be trended. Cardiology was consulted. - Lab Data Result diagrams: 10/06/21 20:01 10/06/21 20:01 Lab Results 10/06/21 10/06/21 10/06/21 Range/Units 20:01 20:01 20:01 WBC 6.2 (3.8-10.6) k/uL RBC 4.27 L (4.30-5.90) m/uL Hgb 13.8 (13.0-17.5) gm/dL Hct 41.5 (39.0-53.0) % MCV 97.2 (80.0-100.0) fL MCH 32.4 (25.0-35.0) pg MCHC 33.3 (31.0-37.0) g/dL RDW 13.0 (11.5-15.5) % Plt Count 211 (150-450) k/uL MPV 9.4 Neutrophils % 66 % Lymphocytes % 19 % Monocytes % 5 % Eosinophils % 7 % Basophils % 1 % Neutrophils # 4.1 (1.3-7.7) k/uL Lymphocytes # 1.2 (1.0-4.8) k/uL Monocytes # 0.3 (0-1.0) k/uL Eosinophils # 0.4 (0-0.7) k/uL Basophils # 0.1 (0-0.2) k/uL PT 9.9 (9.0-12.0) sec INR 0.9 (<1.2) APTT 25.8 (22.0-30.0) sec Sodium 135 L (137-145) mmol/L Potassium 4.4 (3.5-5.1) mmol/L Chloride 103 (98-107) mmol/L Carbon Dioxide 23 (22-30) mmol/L Anion Gap 9 mmol/L BUN 15 (9-20) mg/dL Creatinine 1.02 (0.66-1.25) mg/dL Est GFR (CKD-EPI)AfAm >90 (>60 ml/min/1.73 sqM) Est GFR (CKD-EPI)NonAf 79 (>60 ml/min/1.73 sqM) Glucose 219 H (74-99) mg/dL Calcium 9.3 (8.4-10.2) mg/dL Magnesium 2.0 (1.6-2.3) mg/dL Total Bilirubin 0.3 (0.2-1.3) mg/dL AST 23 (17-59) U/L ALT 18 (4-49) U/L Alkaline Phosphatase 106 (38-126) U/L Troponin I (0.000-0.034) ng/mL Total Protein 7.1 (6.3-8.2) g/dL Albumin 4.5 (3.5-5.0) g/dL 10/06/21 Range/Units 20:01 WBC (3.8-10.6) k/uL RBC (4.30-5.90) m/uL Hgb (13.0-17.5) gm/dL Hct (39.0-53.0) % MCV (80.0-100.0) fL MCH (25.0-35.0) pg MCHC (31.0-37.0) g/dL RDW (11.5-15.5) % Plt Count (150-450) k/uL MPV Neutrophils % % Lymphocytes % % Monocytes % % Eosinophils % % Basophils % % Neutrophils # (1.3-7.7) k/uL Lymphocytes # (1.0-4.8) k/uL Monocytes # (0-1.0) k/uL Eosinophils # (0-0.7) k/uL Basophils # (0-0.2) k/uL PT (9.0-12.0) sec INR (<1.2) APTT (22.0-30.0) sec Sodium (137-145) mmol/L Potassium (3.5-5.1) mmol/L Chloride (98-107) mmol/L Carbon Dioxide (22-30) mmol/L Anion Gap mmol/L BUN (9-20) mg/dL Creatinine (0.66-1.25) mg/dL Est GFR (CKD-EPI)AfAm (>60 ml/min/1.73 sqM) Est GFR (CKD-EPI)NonAf (>60 ml/min/1.73 sqM) Glucose (74-99) mg/dL Calcium (8.4-10.2) mg/dL Magnesium (1.6-2.3) mg/dL Total Bilirubin (0.2-1.3) mg/dL AST (17-59) U/L ALT (4-49) U/L Alkaline Phosphatase (38-126) U/L Troponin I <0.012 (0.000-0.034) ng/mL Total Protein (6.3-8.2) g/dL Albumin (3.5-5.0) g/dL - EKG Data -: EKG Interpreted by Me EKG Comments: 12-lead Electrocardiogram Interpretation Note EKG was reviewed and interpreted by myself. 12-lead ECG performed at 1857 is interpreted by me as revealing normal sinus rhythm at a rate of 83 beats per minute. [place] is normal. [place] interval is 192 ms, QTc is 425 ms, QRS duration is 97 ms.. There were no ST or T wave abnormalities to suggest myocardial ischemia or injury. R wave progression across the precordium was satisfactory. By my interpretation this EKG is non-diagnostic for acute ischemia. Critical Care Time Critical Care Time: Yes Total Critical Care Time: 35 Critical Care Time: Upon my evaluation, this patient had a high probability of imminent or life-threatening deterioration due to initiation of heparin from stable angina, chest pain, which required my direct attention, intervention, and personal management. I have personally provided 35 minutes of critical care time exclusive of time spent on separately billable procedures. Time includes review of laboratory data, radiology results, discussion with consultants, and monitoring for potential decompensation. Interventions were performed as documented in my note. Disposition Clinical Impression: Chest pain, Unstable angina Disposition: ADMITTED IP TO THIS HOSP Condition: Stable Time of Disposition: 21:08
[2021-10-06 20:14] LABS: Basophils # (A) 0.1 k/uL (0-0.2); Basophils % (A) 1 %; Eosinophils # (A) 0.4 k/uL (0-0.7); Eosinophils % (A) 7 %; HCT 41.5 % (39.0-53.0); HGB 13.8 gm/dL (13.0-17.5); Lymphocytes # (A) 1.2 k/uL (1.0-4.8); Lymphocytes % (A) 19 %; MCH 32.4 pg (25.0-35.0); MCHC 33.3 g/dL (31.0-37.0); MCV 97.2 fL (80.0-100.0); Mean Platelet Volume 9.4; Monocytes # (A) 0.3 k/uL (0-1.0); Monocytes % (A) 5 %; Neutrophils # (A) 4.1 k/uL (1.3-7.7); Neutrophils % (A) 66 %; Platelet Count 211 k/uL (150-450); RBC 4.27 m/uL (4.30-5.90); WBC 6.2 k/uL (3.8-10.6)
[2021-10-06 20:28] LABS: INR 0.9 (<1.2); Partial Thromboplastin Time 25.8 sec (22.0-30.0); Prothrombin Time 9.9 sec (9.0-12.0)
--- NOTE | 2021-10-06 20:40 | XR ---
EXAMINATION TYPE: XR chest 2V DATE OF EXAM: 10/06/2021 COMPARISON: 10/23/2014 HISTORY: Chest pain TECHNIQUE: FINDINGS: There is no heart failure nor confluent pneumonic infiltrate. Costophrenic angles are clear . There are no hilar masses. Bony thorax is intact. Thoracic aorta is atheromatous. IMPRESSION: No active cardiopulmonary disease. Atheromatous aorta. No change.
[2021-10-06 20:57] LABS: ALT 18 U/L (4-49); AST 23 U/L (17-59); African American GFR (CKD) >90 (>60 ml/min/1.73 sqM); Albumin 4.5 g/dL (3.5-5.0); Alkaline Phosphatase 106 U/L (38-126); Anion Gap 9 mmol/L; Blood Urea Nitrogen 15 mg/dL (9-20); Calcium 9.3 mg/dL (8.4-10.2); Carbon Dioxide 23 mmol/L (22-30); Chloride 103 mmol/L (98-107); Glucose 219 mg/dL (74-99); Non-African American GFR(CKD) 79 (>60 ml/min/1.73 sqM); Potassium 4.4 mmol/L (3.5-5.1); Sodium 135 mmol/L (137-145); Total Bilirubin 0.3 mg/dL (0.2-1.3); Total Protein 7.1 g/dL (6.3-8.2)
[2021-10-06] MEDS ORDERED: HEPARIN SODIUM 1,000 UN/ML (10ML VL) IV ONE (21:07)
[2021-10-06] MEDS ORDERED: HEPARIN SODIUM 1,000 UN/ML (10ML VL) IV PRN (21:07)
[2021-10-06] MEDS ORDERED: NALOXONE 0.4 MG/ML 1 ML VIAL IV PRN (21:08)
[2021-10-06] MEDS ORDERED: HEPARIN SOD,PORK IN 0.45% NACL 25,000 UNIT in 0.45% NACL 1 250ML.BAG IV SCH (21:15)
[2021-10-07] MEDS ORDERED: ALPRAZolam 1 MG TAB PO PRN (00:16)
[2021-10-07] MEDS ORDERED: DIVALPROEX 500 MG TABLET.DR PO SCH (00:30)
--- NOTE | 2021-10-07 04:12 | P.HPIM ---
History of Present Illness H&P Date: 10/06/21 Chief Complaint: chest pain 61-year-old male with history of diabetes mellitus hypertension Patient comes into the hospital after experiencing persistent chest pain after having the stress test done he did not get results cc Dr. 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 He denies any cardiac history in the past he was having a screening stress test ordered by his primary care doctor. Patient reports that he is able to carry on activities of daily living usually he is active with no limitations related to exertional dyspnea. He also noted swelling of his right hand due to a cat bite that happened 2 weeks ago since then he's been taking Bactrim he reports that the swelling has been coming down he denies any fevers or chills but he has limitations in movement of the right hand due to swelling and pain Workup in the ED was pretty much unremarkable patient admitted to rule out acute coronary syndrome as stress test results are not available Denies any recent hospital stay denies any recent travel denies any history of blood clots denies any symptoms of upper respiratory infection Review of Systems Pertinent positives as noted in HPI. All other systems were reviewed and are negative Past Medical History Past Medical History: Diabetes Mellitus, Deep Vein Thrombosis (DVT), Hypertension Additional Past Medical History / Comment(s): Hernia, degenerative arthritis, ADD, ADHD History of Any Multi-Drug Resistant Organisms: None Reported Past Surgical History: Hernia Repair, Orthopedic Surgery Additional Past Surgical History / Comment(s): Umbilical hernia repair, I&D of the left foot between the fourth and fifth toes 2016 Past Anesthesia/Blood Transfusion Reactions: No Reported Reaction Past Psychological History: ADD/ADHD, Bipolar, Depression Smoking Status: Current some day smoker Past Alcohol Use History: Abuse Past Drug Use History: Marijuana - Past Family History Father Additional Family Medical History / Comment(s): Biological father in his 60s from complications of an ankle surgery. Mother Additional Family Medical History / Comment(s): adopted Sister(s) Additional Family Medical History / Comment(s): He has 8 sisters with no major medical problems. Patient does not have any children. Medications and Allergies Home Medications Medication Instructions Recorded Confirmed Type Atorvastatin [Lipitor] 20 mg PO HS 01/21/18 10/06/21 History amLODIPine [Norvasc] 5 mg PO DAILY 01/21/18 10/06/21 History ALPRAZolam [Xanax] 1 mg PO TID PRN 3 Days #9 tab 12/20/20 10/06/21 Rx Amoxic-Pot Clav 875-125Mg 1 tab PO Q12HR 14 Days #28 tab 09/26/21 10/06/21 Rx [Augmentin 875-125] Sulfamethox-Tmp 800-160Mg [Bactrim 1 tab PO Q12HR 14 Days #28 tab 09/26/21 10/06/21 Rx DS 800-160 mg] Celecoxib [CeleBREX] 200 mg PO DAILY 10/06/21 10/06/21 History Dextroamphetamine/Amphetamine 30 mg PO BID 10/06/21 10/06/21 History [Adderall] Diclofenac Sodium Gel [Voltaren 1 gm TOPICAL QID PRN 10/06/21 10/06/21 History Gel] Divalproex [Depakote] 500 mg PO HS 10/06/21 10/06/21 History Losartan Potassium [Cozaar] 12.5 mg PO DAILY 10/06/21 10/06/21 History Metoprolol Succinate [Metoprolol 25 mg PO DAILY 10/06/21 10/06/21 History Succinate ER] Nicotine 14Mg/24Hr Patch [Habitrol 1 patch TRANSDERM DAILY PRN 10/06/21 10/06/21 History 14Mg/24Hr Patch] Pioglitazone HCl 30 mg PO DAILY 10/06/21 10/06/21 History Pregabalin 300 mg PO BID 10/06/21 10/06/21 History metFORMIN HCL 1,000 mg PO BID-W/MEALS 10/06/21 10/06/21 History predniSONE [Deltasone] 20 mg PO DIRECTED 10/06/21 10/06/21 History Allergies Allergy/AdvReac Type Severity Reaction Status Date / Time No Known Allergies Allergy Verified 10/06/21 22:08 Physical Exam Vitals: Vital Signs Pulse Resp BP Pulse Ox 10/06/21 23:58 63 18 131/84 97 10/06/21 23:55 73 18 126/68 94 L 10/06/21 22:15 75 18 142/87 98 10/06/21 20:08 80 18 128/73 95 06/27/22 20:03 78 18 141/69 95 Intake and Output 10/06/21 10/06/21 10/07/21 14:59 22:59 06:59 Other: Weight 92.079 kg Constitutional: No acute distress, conversant, pleasant Eyes: Anicteric sclerae, moist conjunctiva, Pupils equal round reactive to light ENMT: NC/AT Oropharynx clear, no erythema, or exudates Neck: Supple, FROM, no masses, or JVD No carotid bruits No thyromegaly Lungs: Clear to auscultation Clear to percussion Normal respiratory effort, no accessory muscle use Cardiovascular: Heart regular in rate and rhythm, No murmurs, gallops, or rubs No peripheral edema Abdominal: Soft Nontender, no guarding, rebound or rigidity Abdomen moving with respiration Normoactive bowel sounds No hepatomegaly, No splenomegaly No palpable mass No abdominal wall hernia noted Skin: Swelling quit draining wound over the dorsum of the right hand surrounded erythema and induration with limitation in range of motion of the hand due to swelling and pain warm to the touch tender to palpation. Otherwise Normal temperature, tone, texture, turgor Extremities: Swelling quit draining wound over the dorsum of the right hand surrounded erythema and induration with limitation in range of motion of the hand due to swelling and pain warm to the touch tender to palpation. No digital cyanosis No clubbing Pedal pulses intact and symmetrical Radial pulses intact and symmetrical No calf tenderness Psychiatric: Alert and oriented to person, place and time Appropriate affect fair judgement Neuro Muscles Strength 5/5 in all 4 extremities Sensation to light touch grossly present throughout Cranial nerves II-XII grossly intact No focal sensory deficits Lymphatics: no palpable cervical or supraclavicular , or inguinal lymph nodes Results CBC & Chem 7: 10/06/21 20:01 10/06/21 20:01 Labs: Abnormal Lab Results - Last 24 Hours (Table) 10/06/21 10/06/21 Range/Units 20:01 20:01 RBC 4.27 L (4.30-5.90) m/uL Sodium 135 L (137-145) mmol/L Glucose 219 H (74-99) mg/dL Assessment and Plan Assessment: atypical chest pain rule out ACS EKG no acute changes CXR no acute pathology trops negative 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
[2021-10-07 04:21] LABS: Basophils % (A) 1 %; Eosinophils # (A) 0.5 k/uL (0-0.7); Eosinophils % (A) 8 %; HCT 39.1 % (39.0-53.0); HGB 12.9 gm/dL (13.0-17.5); Lymphocytes # (A) 1.3 k/uL (1.0-4.8); Lymphocytes % (A) 20 %; MCH 32.5 pg (25.0-35.0); MCHC 33.1 g/dL (31.0-37.0); Mean Platelet Volume 9.2; Monocytes # (A) 0.3 k/uL (0-1.0); Monocytes % (A) 4 %; Neutrophils # (A) 4.1 k/uL (1.3-7.7); Neutrophils % (A) 65 %; Platelet Count 177 k/uL (150-450); RBC 3.99 m/uL (4.30-5.90); RDW 13.1 % (11.5-15.5); WBC 6.2 k/uL (3.8-10.6)
[2021-10-07 04:52] LABS: INR 0.9 (<1.2); Partial Thromboplastin Time 30.1 sec (22.0-30.0); Prothrombin Time 10.2 sec (9.0-12.0)
[2021-10-07 04:57] LABS: African American GFR (CKD) >90 (>60 ml/min/1.73 sqM); Anion Gap 3 mmol/L; Blood Urea Nitrogen 14 mg/dL (9-20); Carbon Dioxide 27 mmol/L (22-30); Chloride 105 mmol/L (98-107); Glucose 156 mg/dL (74-99); Non-African American GFR(CKD) >90 (>60 ml/min/1.73 sqM); Potassium 3.9 mmol/L (3.5-5.1); Sodium 135 mmol/L (137-145)
[2021-10-07] MEDS: AMPICILLIN-SULBACTAM 3 GM in SODIUM CHLORIDE 0.9% 100 ML IVPB SCH ×2 (05:48→10:36)
[2021-10-07] MEDS ORDERED: metFORMIN 500 MG TAB PO SCH (07:30)
[2021-10-07] MEDS ORDERED: PREGABALIN 100 MG CAP PO SCH (09:00)
[2021-10-07] MEDS ORDERED: LOSARTAN 25 MG TAB PO SCH (09:00)
[2021-10-07] MEDS ORDERED: amLODIPine 5 MG TAB PO SCH (09:00)
[2021-10-07] MEDS ORDERED: METOPROLOL SUCCINATE (ER) 25 MG TAB.ER.24H PO SCH (09:00)
[2021-10-07] MEDS ORDERED: PIOGLITAZONE 30 MG TAB PO SCH (09:00)
[2021-10-07 09:19] VITALS: BP 130/61; PULSE 53; RESP 16; TEMP 97.8
[2021-10-07] MEDS: INSULIN ASPART (NovoLOG) 100 UNIT/ML VIAL SQ SCH ×2 (09:56→12:09)
--- NOTE | 2021-10-07 10:20 | P.CRDCN ---
History of Present Illness Consult date: 10/07/21 History of present illness: HISTORY OF PRESENT ILLNESS: This is a 61-year-old male with a past medical history significant for hypertension, hyperlipidemia, diabetes, and nicotine dependence. Patient follows in the office with Dr. Sutherland. We have been asked to see the patient in consultation for chest pain. Patient examined at the bedside. Patient states yesterday he was at the cardiology office and underwent a Lexiscan stress test. The patient was ordered to have a stress test after he was found to have extensive calcifications of the coronaries on a recent computed tomography scan. The patient states he was doing well but after his stress test was finished and he returned home he began having chest pain. He denied any radiation of the pain. Denied any shortness of breath. He states he told his sister about his chest pain who recommended that he come to the emergency room for further evaluation. The patient states his pain resolved and he has had no further episodes of chest pain or pressure. * EKG reveals sinus mechanism with no signs of acute ischemia * Chest xray no active cardiopulmonary disease. * Laboratory data: WBC 6.2. Hemoglobin 12.9. Platelet count 177. Sodium 135. Potassium 3.9. BUN 14. Creatinine 0.86. Troponin negative 3. * Current home cardiac medications include amlodipine 5 mg daily, Lipitor 20 mg at night, losartan 12.5 mg daily, and metoprolol succinate 25 mg daily REVIEW OF SYSTEMS: At the time of my exam: CONSTITUTIONAL: Denies fever or chills. HEENT: Denies blurred vision, vision changes, or eye pain. Denies hemoptysis CARDIOVASCULAR: Denies chest pain. Denies orthopnea. Denies PND. Denies palpitations RESPIRATORY: Denies shortness of breath. GASTROINTESTINAL: Denies abdominal pain. Denies nausea or vomiting. HEMATOLOGIC: Denies bleeding disorders. GENITOURINARY: Denies any blood in urine. SKIN: Denies pruitis. Denies rash. PHYSICAL EXAM: VITAL SIGNS: Reviewed. GENERAL: Well-developed in no acute distress. HEENT: Head is normocephalic. Pupils are equal, round. Sclerae anicteric. Mucous membranes of the mouth are moist. Neck supple. No JVD or thyromegaly LUNGS: Respirations even and unlabored. Lungs essentially clear to auscultation bilaterally. HEART: Regular rate and rhythm. S1 and S2 heard. ABDOMEN: Soft. Nondistended. Nontender. EXTREMITIES: Normal range of motion. No clubbing or cyanosis. Peripheral pu lses intact. No lower extremity edema NEUROLOGIC: Awake and alert. Oriented x 3. ASSESSMENT: Chest pain, troponins negative 3 Hypertension Hyperlipidemia Diabetes Nicotine dependence PLAN: An acute coronary event has been ruled out Obtain 2-D echo to assess cardiac structure and function Resume home cardiac medications Dr. Sutherland reviewed stress test performed yesterday which was negative for ischemia Dr. Sutherland gave patient the option to undergo cardiac cath which patient declined at this time Increase ambulation. If patient remains chest pain free, he may be discharged home this afternoon and follow up outpatient Further recommendations pending patient course Nurse practitioner note has been reviewed by physician. Signing provider agrees with the documented findings, assessment, and plan of care. Past Medical History Past Medical History: Diabetes Mellitus, Deep Vein Thrombosis (DVT), Hypertension Additional Past Medical History / Comment(s): Hernia, degenerative arthritis, ADD, ADHD History of Any Multi-Drug Resistant Organisms: None Reported Past Surgical History: Hernia Repair, Orthopedic Surgery Additional Past Surgical History / Comment(s): Umbilical hernia repair, I&D of the left foot between the fourth and fifth toes 2016 Past Anesthesia/Blood Transfusion Reactions: No Reported Reaction Past Psychological History: ADD/ADHD, Bipolar, Depression Smoking Status: Current some day smoker Past Alcohol Use History: Abuse Past Drug Use History: Marijuana - Past Family History Father Additional Family Medical History / Comment(s): Biological father in his 60s from complications of an ankle surgery. Mother Additional Family Medical History / Comment(s): adopted Sister(s) Additional Family Medical History / Comment(s): He has 8 sisters with no major medical problems. Patient does not have any children. Medications and Allergies Home Medications Medication Instructions Recorded Confirmed Type Atorvastatin [Lipitor] 20 mg PO HS 01/21/18 10/06/21 History amLODIPine [Norvasc] 5 mg PO DAILY 01/21/18 10/06/21 History ALPRAZolam [Xanax] 1 mg PO TID PRN 3 Days #9 tab 12/20/20 10/06/21 Rx Amoxic-Pot Clav 875-125Mg 1 tab PO Q12HR 14 Days #28 tab 09/26/21 10/06/21 Rx [Augmentin 875-125] Sulfamethox-Tmp 800-160Mg [Bactrim 1 tab PO Q12HR 14 Days #28 tab 09/26/21 10/06/21 Rx DS 800-160 mg] Celecoxib [CeleBREX] 200 mg PO DAILY 10/06/21 10/06/21 History Dextroamphetamine/Amphetamine 30 mg PO BID 10/06/21 10/06/21 History [Adderall] Diclofenac Sodium Gel [Voltaren 1 gm TOPICAL QID PRN 10/06/21 10/06/21 History Gel] Divalproex [Depakote] 500 mg PO HS 10/06/21 10/06/21 History Losartan Potassium [Cozaar] 12.5 mg PO DAILY 10/06/21 10/06/21 History Metoprolol Succinate [Metoprolol 25 mg PO DAILY 10/06/21 10/06/21 History Succinate ER] Nicotine 14Mg/24Hr Patch [Habitrol 1 patch TRANSDERM DAILY PRN 10/06/21 10/06/21 History 14Mg/24Hr Patch] Pioglitazone HCl 30 mg PO DAILY 10/06/21 10/06/21 History Pregabalin 300 mg PO BID 10/06/21 10/06/21 History metFORMIN HCL 1,000 mg PO BID-W/MEALS 10/06/21 10/06/21 History predniSONE [Deltasone] 20 mg PO DIRECTED 10/06/21 10/06/21 History Allergies Allergy/AdvReac Type Severity Reaction Status Date / Time No Known Allergies Allergy Verified 10/06/21 22:08 Physical Exam Vitals: Vital Signs Temp Pulse Pulse Resp BP BP Pulse Ox 10/07/21 09:05 97.8 F 53 L 16 130/61 97 10/07/21 06:33 64 18 117/53 100 10/06/21 23:58 63 18 131/84 97 10/06/21 23:55 73 18 126/68 94 L 10/06/21 22:15 75 18 142/87 98 10/06/21 20:08 80 18 128/73 95 10/06/21 20:03 78 18 141/69 95 Intake and Output 10/06/21 10/07/21 10/07/21 22:59 06:59 14:59 Intake Total 81.74 Balance 81.74 Intake: Intake, IV Titration 81.74 Amount Heparin Sod,Pork in 0.45% 81.74 NaCl 25,000 unit In 0.45 % NaCl 1 250ml.bag @ 10. 87 UNITS/KG/HR 10.009 mls /hr IV .Q24H [facility] Rx#: [id number] Other: Voiding Method Toilet Weight 92.079 kg Results 10/07/21 03:39 10/07/21 03:39 Cardiac Enzymes 10/06/21 10/06/21 10/07/21 Range/Units 20:01 20:01 00:34 AST 23 (17-59) U/L Troponin I <0.012 <0.012 (0.000-0.034) ng/mL 10/07/21 Range/Units 03:39 AST (17-59) U/L Troponin I <0.012 (0.000-0.034) ng/mL Coagulation 10/06/21 10/07/21 Range/Units 20:01 03:39 PT 9.9 10.2 (9.0-12.0) sec APTT 25.8 30.1 H (22.0-30.0) sec CBC 10/06/21 10/07/21 Range/Units 20:01 03:39 WBC 6.2 6.2 (3.8-10.6) k/uL RBC 4.27 L 3.99 L (4.30-5.90) m/uL Hgb 13.8 12.9 L (13.0-17.5) gm/dL Hct 41.5 39.1 (39.0-53.0) % Plt Count 211 177 (150-450) k/uL Comprehensive Metabolic Panel 10/06/21 10/07/21 Range/Units 20:01 03:39 Sodium 135 L 135 L (137-145) mmol/L Potassium 4.4 3.9 (3.5-5.1) mmol/L Chloride 103 105 (98-107) mmol/L Carbon Dioxide 23 27 (22-30) mmol/L BUN 15 14 (9-20) mg/dL Creatinine 1.02 0.86 (0.66-1.25) mg/dL Glucose 219 H 156 H (74-99) mg/dL Calcium 9.3 9.0 (8.4-10.2) mg/dL AST 23 (17-59) U/L ALT 18 (4-49) U/L Alkaline Phosphatase 106 (38-126) U/L Total Protein 7.1 (6.3-8.2) g/dL Albumin 4.5 (3.5-5.0) g/dL Current Medications Generic Name Dose Route Start Last Admin Trade Name Freq PRN Reason Stop Dose Admin Alprazolam 1 mg 10/07/21 00:16 Alprazolam 1 Mg Tab PO TID PRN Anxiety Amlodipine Besylate 5 mg 10/07/21 09:00 Amlodipine 5 Mg Tab PO DAILY [facility] Atorvastatin Calcium 20 mg 10/07/21 21:00 Atorvastatin 20 Mg Tab PO HS [facility] Divalproex Sodium 500 mg 10/07/21 00:30 10/07/21 00:23 Divalproex 500 Mg Tablet.Dr PO Not Given HS [facility] Heparin Sodium (Porcine) 0 unit 10/06/21 21:07 10/07/21 05:42 Heparin Sodium 1,000 Un/Ml (10ml Vl) IV 4,000 unit PER PROTOCOL PRN Administration Low PTT Protocol Ampicillin Sodium/Sulbactam 100 mls @ 200 mls/hr 10/07/21 04:02 10/07/21 05:48 Sodium 3 gm/ Sodium Chloride IVPB 200 mls/hr Q6H [facility] Administration Protocol Insulin Aspart 0 unit 10/07/21 07:30 10/07/21 09:56 Insulin Aspart (Novolog) 100 Unit/Ml Vial SQ Not Given ACHS [facility] Protocol Losartan Potassium 12.5 mg 10/07/21 09:00 Losartan 25 Mg Tab PO DAILY [facility] Metformin HCl 1,000 mg 10/07/21 07:30 Metformin 500 Mg Tab PO BID-W/MEALS [facility] Metoprolol Succinate 25 mg 10/07/21 09:00 Metoprolol Succinate (Er) 25 Mg Tab.Er.24h PO DAILY [facility] Naloxone HCl 0.2 mg 10/06/21 21:08 Naloxone 0.4 Mg/Ml 1 Ml Vial IV Q2M PRN Opioid Reversal Pioglitazone HCl 30 mg 10/07/21 09:00 Pioglitazone 30 Mg Tab PO DAILY [facility] Pregabalin 300 mg 10/07/21 09:00 Pregabalin 100 Mg Cap PO BID [facility] Intake and Output 10/06/21 10/07/21 10/07/21 22:59 06:59 14:59 Intake Total 81.74 Balance 81.74 Intake: Intake, IV Titration 81.74 Amount Heparin Sod,Pork in 0.45% 81.74 NaCl 25,000 unit In 0.45 % NaCl 1 250ml.bag @ 10. 87 UNITS/KG/HR 10.009 mls /hr IV .Q24H [facility] Rx#: [id number] Other: Voiding Method Toilet Weight 92.079 kg 10/07/21 03:39 10/07/21 03:39
--- NOTE | 2021-10-07 11:33 | CA ---
Transthoracic Echo Report Name: Zay Spencer Age: 61 Gender: M : 1960 Exam Date: 10/07/2021 08:28 Exam Location: [facility] Ht (in): 71 Wt (lb): 203 Ordering Physician: Julius Jensen MD Attending/Referring Phys: Neck Band Maker Archana Mcclure RDCS Procedure CPT: Indications: Chest Pain Cardiac Hx: Technical Quality: Good Contrast 1: Total Dose (mL): Contrast 2: Total Dose (mL): MEASUREMENTS (Male / Female) Normal Values 2D ECHO LV Diastolic Diameter PLAX 4.8 cm 4.2 - 5.9 / 3.9 - 5.3 cm LV Systolic Diameter PLAX 2.3 cm IVS Diastolic Thickness 1.3 cm 0.6 - 1.0 / 0.6 - 0.9 cm LVPW Diastolic Thickness 1.4 cm 0.6 - 1.0 / 0.6 - 0.9 cm LV Relative Wall Thickness 0.6 RV Internal Dim ED PLAX 3.2 cm LA Volume 55.8 cm??? 18 - 58 / 22 - 52 cm??? M-MODE Aortic Root Diameter MM 3.1 cm LA Systolic Diameter MM 3.6 cm LA Ao Ratio MM 1.2 MV E Point Septal Separation 0.7 cm AV Cusp Separation MM 2.2 cm DOPPLER AV Peak Velocity 140.5 cm/s AV Peak Gradient 7.9 mmHg MV Area PHT 3.0 cm??? MR Peak Velocity 131.9 cm/s MR Peak Gradient 7.0 mmHg Mitral E Point Velocity 111.5 cm/s Mitral A Point Velocity 93.8 cm/s Mitral E to A Ratio 1.2 MV Deceleration Time 248.9 ms MV E' Velocity 10.8 cm/s Mitral E to MV E' Ratio 10.4 TR Peak Velocity 124.8 cm/s TR Peak Gradient 6.2 mmHg Right Ventricular Systolic Press 11.2 mmHg FINDINGS Left Ventricle Mildly increased septal wall thickness. Left ventricular ejection fraction is estimated at 55-60 %. Left ventricular cavity size normal. Normal left ventricular diastolic filling pattern. Right Ventricle The right ventricle is normal in size and function. Right Atrium The right atrium is normal in size. Left Atrium The left atrium is normal in size. Mitral Valve Structurally normal mitral valve without significant stenosis or prolapse. There is trace mitral regurgitation. Aortic Valve Structurally normal aortic valve without significant sclerosis or stenosis. There is no aortic regurgitation. Tricuspid Valve Structurally normal tricuspid valve without significant stenosis. Pulmonary artery systolic pressure is normal. Trace tricuspid regurgitation. Pulmonic Valve Structurally normal pulmonic valve without significant stenosis. There is no pulmonic regurgitation. Pericardium Normal pericardium without effusion. Aorta Normal aortic root dimension. CONCLUSIONS Normal LV systolic function Previewed by: Dr. Wale Sutherland MD (Electronically Signed) Final Date: 07 October 2021 11:33
[2021-10-07 11:50] LABS: Glucose,Whole Blood 143 mg/dL (70-110)
--- NOTE | 2021-10-07 14:20 | P.DS ---
Providers Date of admission: 10/06/21 21:08 Expected date of discharge: 10/07/21 Attending physician: Kieran England MD Consults: 10/06/21 21:08 Consult Physician Routine Consulting Provider: [facility] Consult Reason/Comments: chest pain, unstable angina Do you want consulting provider notified?: Yes, Notify in am Primary care physician: [facility] Course: Chest pain, atypical Right hand cellulitis and abscess Hypertension Hyperlipidemia Diabetes type 2 61-year-old male with history of diabetes mellitus hypertension presented with persistent chest pain after having a stress test done in which he did not get results. Workup in the ED was pretty much unremarkable, patient admitted to rule out acute coronary syndrome as stress test results are not available. His troponins were negative. His EKG was nonischemic. His chest x-ray appeared clear. He was evaluated by cardiology and offered an angiogram this admission, however, patient said that he felt back to baseline and did not require any further testing at this time, preferred to follow-up with cardiology as an outpatient. Therefore, patient was discharged home with no changes to medication, and plan to follow-up with cardiology and PCP. Gen: awake, alert HEENT: normocephalic, atraumatic, good hearing acuity, moist mucous membranes Resp: good air exchange, breathing comfortably with no accessory muscle use CVS: good distal perfusion x 4, GI: soft, NTTP, ND : no SPT, no CVAT, haddad catheter not present MSK: no pitting edema, no clubbing, right hand cellulitis and fluctuance with areas of draining Neuro: non-focal, moving all extremities Psych: cooperative, euthymic mood Patient Condition at Discharge: Stable Plan - Discharge Summary New Discharge Prescriptions: Continue Atorvastatin [Lipitor] 20 mg PO HS amLODIPine [Norvasc] 5 mg PO DAILY predniSONE [Deltasone] 20 mg PO DIRECTED Pregabalin 300 mg PO BID metFORMIN HCL 1,000 mg PO BID-W/MEALS Celecoxib [CeleBREX] 200 mg PO DAILY ALPRAZolam [Xanax] 1 mg PO TID PRN 3 Days #9 tab PRN Reason: Anxiety Amoxic-Pot Clav 875-125Mg [Augmentin 875-125] 1 tab PO Q12HR 14 Days #28 tab Sulfamethox-Tmp 800-160Mg [Bactrim DS 800-160 mg] 1 tab PO Q12HR 14 Days #28 tab Divalproex [Depakote] 500 mg PO HS Pioglitazone HCl 30 mg PO DAILY Nicotine 14Mg/24Hr Patch [Habitrol] 1 patch TRANSDERM DAILY PRN PRN Reason: Nicotine Cravings Metoprolol Succinate [Metoprolol Succinate ER] 25 mg PO DAILY Losartan Potassium [Cozaar] 12.5 mg PO DAILY Diclofenac Sodium Gel [Voltaren Gel] 1 gm TOPICAL QID PRN PRN Reason: Pain Discontinued Dextroamphetamine/Amphetamine [Adderall] 30 mg PO BID Discharge Medication List Atorvastatin [Lipitor] 20 mg PO HS 01/21/18 [History] amLODIPine [Norvasc] 5 mg PO DAILY 01/21/18 [History] ALPRAZolam [Xanax] 1 mg PO TID PRN 3 Days #9 tab 12/20/20 [Rx] Amoxic-Pot Clav 875-125Mg [Augmentin 875-125] 1 tab PO Q12HR 14 Days #28 tab 09/26/21 [Rx] Sulfamethox-Tmp 800-160Mg [Bactrim DS 800-160 mg] 1 tab PO Q12HR 14 Days #28 tab 09/26/21 [Rx] Celecoxib [CeleBREX] 200 mg PO DAILY 10/06/21 [History] Diclofenac Sodium Gel [Voltaren Gel] 1 gm TOPICAL QID PRN 10/06/21 [History] Divalproex [Depakote] 500 mg PO HS 10/06/21 [History] Losartan Potassium [Cozaar] 12.5 mg PO DAILY 10/06/21 [History] Metoprolol Succinate [Metoprolol Succinate ER] 25 mg PO DAILY 10/06/21 [History] Nicotine 14Mg/24Hr Patch [Habitrol] 1 patch TRANSDERM DAILY PRN 10/06/21 [History] Pioglitazone HCl 30 mg PO DAILY 10/06/21 [History] Pregabalin 300 mg PO BID 10/06/21 [History] metFORMIN HCL 1,000 mg PO BID-W/MEALS 10/06/21 [History] predniSONE [Deltasone] 20 mg PO DIRECTED 10/06/21 [History] Follow up Appointment(s)/Referral(s): Rubi Ruiz MD [Primary Care Provider] - 1-2 days Wale Sutherland MD [STAFF PHYSICIAN] - 1 Week (october AT 8:30AM) Patient Instructions/Handouts: Chest Pain (DC) Discharge Disposition: HOME SELF-CARE
[2021-10-07] MEDS ORDERED: ATORVASTATIN 20 MG TAB PO SCH (21:00)
== END 2021-10-07 13:25 | disposition home or self-care (01) ==
LOC: EC 18:53 → 6NMEDSUR 21:08
PROVIDERS: ADMIT Internal Medicine; ATTEND Internal Medicine
DX: R07.89 Other chest pain (principal); L03.113 Cellulitis of right upper limb; L02.511 Cutaneous abscess of right hand; W55.01XA Bitten by cat, initial encounter; E11.9 Type 2 diabetes mellitus without complications; I10 Essential (primary) hypertension; E78.5 Hyperlipidemia, unspecified; I70.0 Atherosclerosis of aorta; M19.90 Unspecified osteoarthritis, unspecified site; F90.9 Attention-deficit hyperactivity disorder, unspecified type; F31.9 Bipolar disorder, unspecified; F17.200 Nicotine dependence, unspecified, uncomplicated; Z79.02 Long term (current) use of antithrombotics/antiplatelets; Z79.1 Long term (current) use of non-steroidal anti-inflammatories (NSAID); Z79.84 Long term (current) use of oral hypoglycemic drugs; Z79.899 Other long term (current) drug therapy; Z86.718 Personal history of other venous thrombosis and embolism; Z98.890 Other specified postprocedural states
CPT/HCPCS: 96366 ×3; 96376; 96365; 96367; 99291; 36415; 93005; 93306; 80053; 80048; 85652; 83735; 84484 ×2; 85025 ×2; 85610 ×2; 85730 ×2; 86140; 71046; G0378 ×2; J1644 ×3; J0295

== ENCOUNTER 2023-04-04 12:04 | Emergency (ER) | payer OTHER ==
[2023-04-04 13:21] VITALS: TEMP 97.9
[2023-04-04 13:25] LABS: Cocaine Screen,Urine Not Detected (NotDetected); Phencyclidine Screen,Urine Not Detected (NotDetected); Urn Cannabinoid Scrn Detected (NotDetected)
[2023-04-04 13:26] LABS: Amphetamine Screen,Urine Detected (NotDetected); Barbiturate Screen,Urine Not Detected (NotDetected); Benzodiazepines Screen,Urine Detected (NotDetected); Methadone Screen, Urine Not Detected (NotDetected); Opiate Screen,Urine Not Detected (NotDetected); Oxycodone Screen, Urine Not Detected (NotDetected); Tricyclic Antidepressant,Urine Detected (NotDetected)
--- NOTE | 2023-04-04 13:44 | ED ---
General Adult HPI - General Chief complaint: Overdose Stated complaint: overdose Time Seen by Provider: 04/04/23 12:10 Source: patient, EMS, RN notes reviewed, old records reviewed Mode of arrival: EMS - History of Present Illness Initial comments: This is a 63-year-old male who presents emergency Department after paramedics were called to scene for a significantly decreased responsive patient. According to the patient's family he did heroin and became unresponsive and the roommate gave the patient nasal Narcan with very little response. When EMS arrived they started an IV and gave the patient IV Narcan the patient became alert and oriented 3. Patient denies any symptoms currently. Alcohol use. Patient denies chest pain palpitations difficulty breathing shortness breath per patient denies any recent fever chills or upper patient denies abdominal pain. Patient denies any suicidal homicidal ideations. - Related Data Home Medications Medication Instructions Recorded Confirmed Atorvastatin [Lipitor] 20 mg PO HS 01/21/18 10/06/21 amLODIPine [Norvasc] 5 mg PO DAILY 01/21/18 10/06/21 Celecoxib [CeleBREX] 200 mg PO DAILY 10/06/21 10/06/21 Diclofenac Sodium Gel [Voltaren 1% 1 gm TOPICAL QID PRN 10/06/21 10/06/21 Gel] Divalproex [Depakote] 500 mg PO HS 10/06/21 10/06/21 Losartan Potassium [Cozaar] 12.5 mg PO DAILY 10/06/21 10/06/21 Metoprolol Succinate [Metoprolol 25 mg PO DAILY 10/06/21 10/06/21 Succinate ER] Nicotine 14Mg/24Hr Patch [Habitrol] 1 patch TRANSDERM DAILY PRN 10/06/21 10/06/21 Pioglitazone HCl 30 mg PO DAILY 10/06/21 10/06/21 Pregabalin 300 mg PO BID 10/06/21 10/06/21 metFORMIN HCL 1,000 mg PO BID-W/MEALS 10/06/21 10/06/21 predniSONE [Deltasone] 20 mg PO DIRECTED 10/06/21 10/06/21 Previous Rx's Medication Instructions Recorded ALPRAZolam [Xanax] 1 mg PO TID PRN 3 Days #9 tab 12/20/20 Amoxic-Pot Clav 875-125Mg 1 tab PO Q12HR 14 Days #28 tab 09/26/21 [Augmentin 875-125] Sulfamethox-Tmp 800-160Mg [Bactrim 1 tab PO Q12HR 14 Days #28 tab 09/26/21 DS 800-160 mg] Allergies Allergy/AdvReac Type Severity Reaction Status Date / Time No Known Allergies Allergy Verified 04/04/23 12:13 Review of Systems ROS Statement: Those systems with pertinent positive or pertinent negative responses have been documented in the HPI. ROS Other: All systems not noted in ROS Statement are negative. Past Medical History Past Medical History: Diabetes Mellitus, Deep Vein Thrombosis (DVT), Hypertension Additional Past Medical History / Comment(s): Hernia, degenerative arthritis, ADD, ADHD History of Any Multi-Drug Resistant Organisms: None Reported Past Surgical History: Hernia Repair, Orthopedic Surgery Additional Past Surgical History / Comment(s): Umbilical hernia repair, I&D of the left foot between the fourth and fifth toes 2016 Past Anesthesia/Blood Transfusion Reactions: No Reported Reaction Past Psychological History: ADD/ADHD, Bipolar, Depression Smoking Status: Current some day smoker Past Alcohol Use History: Abuse Past Drug Use History: Heroin, Marijuana - Past Family History Father Additional Family Medical History / Comment(s): Biological father in his 60s from complications of an ankle surgery. Mother Additional Family Medical History / Comment(s): adopted Sister(s) Additional Family Medical History / Comment(s): He has 8 sisters with no major medical problems. Patient does not have any children. General Exam - General Exam Comments Initial Comments: GENERAL: Patient is well-developed and well-nourished. Patient is nontoxic and well- hydrated and is in no acute distress. ENT: Neck is soft and supple. No significant lymphadenopathy is noted. Oropharynx is clear. Moist mucous membranes. Neck has full range of motion without eliciting any pain. EYES: The sclera were anicteric and conjunctiva were pink and moist. Extraocular movements were intact and pupils were equal round and reactive to light. Eyelids were unremarkable. PULMONARY: Unlabored respirations. Good breath sounds bilaterally. No audible rales rhonchi or wheezing was noted. CARDIOVASCULAR: There is a regular rate and rhythm without any murmurs gallops or rubs. ABDOMEN: Soft and nontender with normal bowel sounds. SKIN: Skin is clear with no lesions or rashes and otherwise unremarkable. NEUROLOGIC: Patient is alert and oriented x3. Cranial nerves II through XII are grossly intact. Motor and sensory are also intact. Normal speech, volume and content. Symmetrical smile. MUSCULOSKELETAL: Normal extremities with adequate strength and full range of motion. LYMPHATICS: No significant lymphadenopathy is noted PSYCHIATRIC: Normal psychiatric evaluation. Course Vital Signs 04/04/23 12:09 Temperature 97.9 F Pulse Rate 79 Respiratory 16 Rate Blood Pressure 147/79 O2 Sat by Pulse 96 Oximetry Medical Decision Making - Medical Decision Making Was pt. sent in by a medical professional or institution (, PA, CAR BUILDER, urgent care, hospital, or [place] health [place] facility...) When possible be specific @ -No Did you speak to anyone other than the patient for history (EMS, parent, family, police, friend...)? What history was obtained from this source @ -Gave us most of the history Did you review nursing and triage notes (agree or disagree)? Why? @ -I reviewed and agree with nursing and triage notes Were old charts reviewed (outside hosp., previous admission, EMS record, old EKG, old radiological studies, urgent care reports/EKG's, [place] health [facility] facility records)? Report findings @ -No old charts were reviewed Differential Diagnosis (chest pain, altered mental status, abdominal pain women, abdominal pain men, vaginal bleeding, weakness, fever, dyspnea, syncope, headache, dizziness, GI bleed, back pain, seizure, CVA, palpatations, mental health, musculoskeletal)? @ -Differential Altered Mental Status: Hypoglycemia, DKA, hypercapnia, ETOH, overdose, CO poisoning, trauma, myxedema coma, HTN encephalopathy, infection, encephalitis, psychosis, intercranial hemorrhage, hepatic encephalopathy, meningitis, CVA, this is not meant to be an all-inclusive list EKG interpreted by me (3pts min.). @ -As above X-rays interpreted by me (1pt min.). @ -None done CT interpreted by me (1pt min.). @ -None done U/S interpreted by me (1pt. min.). @ -None done What testing was considered but not performed or refused? (CT, X-rays, U/S, labs)? Why? @ -None What meds were considered but not given or refused? Why? @ -None Did you discuss the management of the patient with other professionals (professionals i.e. , PA, CAR BUILDER, lab, RT, psych nurse, criminal justice social worker, electric shovel operator, teacher, worldwide chief creative officer, ed case manager)? Give summary @ -No Was smoking cessation discussed for >3mins.? @ -No Was critical care preformed (if so, how long)? @ -No Were there social determinants of health that impacted care today? How? (Homelessness, low income, unemployed, alcoholism, drug addiction, transportation, low edu. Level, literacy, decrease access to med. care, half-way, rehab)? @ -No Was there de-escalation of care discussed even if they declined (Discuss DNR or withdrawal of care, Hospice)? DNR status @ -No What co-morbidities impacted this encounter? (DM, HTN, Smoking, COPD, CAD, Cancer, CVA, ARF, Chemo, Hep., AIDS, mental health diagnosis, sleep apnea, morbid obesity)? @ -None Was patient admitted / discharged? Hospital course, mention meds given and route, prescriptions, significant lab abnormalities, going to OR and other pertinent info. @ -Patient had no symptoms or complaints throughout his ED course . Patient had lunch I went back to interview the patient he did not have any suicidal homicidal ideations. He had no complaints at this point time patient will be discharged home Undiagnosed new problem with uncertain prognosis? @ -No Drug Therapy requiring intensive monitoring for toxicity (Heparin, Nitro, Insulin, Cardizem)? @ -No Were any procedures done? @ -No Diagnosis/symptom? @ -Opiate overdose Acute, or Chronic, or Acute on Chronic? @ -Acute Uncomplicated (without systemic symptoms) or Complicated (systemic symptoms)? @ -Complicated Side effects of treatment? @ -No Exacerbation, Progression, or Severe Exacerbation? @ -No Poses a threat to life or bodily function? How? (Chest pain, [place], [place], pneumonia, PE, COPD, DKA, ARF, appy, cholecystitis, CVA, Diverticulitis, Homicidal, Suicidal, threat to staff... and all critical care pts) @ -No Diagnosis/symptom? @ -Polypharmacy Acute, or Chronic, or Acute on Chronic? @ -Acute Uncomplicated (without systemic symptoms) or Complicated (systemic symptoms)? @ -Complicated Side effects of treatment? @ -none Exacerbation, Progression, or Severe Exacerbation] @ -no Poses a threat to life or bodily function? @ -no - Lab Data Lab Results 04/04/23 Range/Units 12:50 Urine Opiates Screen Not Detected (NotDetected) Ur Oxycodone Screen Not Detected (NotDetected) Urine Methadone Screen Not Detected (NotDetected) Ur Barbiturates Screen Not Detected (NotDetected) U Tricyclic Antidepress Detected H (NotDetected) Ur Phencyclidine Scrn Not Detected (NotDetected) Ur Amphetamines Screen Detected H (NotDetected) U Methamphetamines Scrn Detected H (NotDetected) U Benzodiazepines Scrn Detected H (NotDetected) Urine Cocaine Screen Not Detected (NotDetected) U Marijuana (THC) Screen Detected H (NotDetected) Ur Drug Screen Comment SEE COMMENT Disposition Clinical Impression: Accidental drug overdose, Narcotic abuse, Polypharmacy Disposition: HOME SELF-CARE Condition: Good Instructions (If sedation given, give patient instructions): Adult Overdose (ED) Is patient prescribed a controlled substance at d/c from ED?: No Referrals: Rubi Ruiz MD [Primary Care Provider] - 1-2 days Time of Disposition: 13:44
[2023-04-04 14:07] VITALS: BP 144/83; PULSE 84; RESP 18
== END 2023-04-04 14:02 | disposition home or self-care (01) ==
LOC: EC 12:04
DX: T40.1X1A Poisoning by heroin, accidental (unintentional), initial encounter (principal); F11.10 Opioid abuse, uncomplicated; E11.9 Type 2 diabetes mellitus without complications; I10 Essential (primary) hypertension; F17.200 Nicotine dependence, unspecified, uncomplicated; F12.90 Cannabis use, unspecified, uncomplicated; F14.90 Cocaine use, unspecified, uncomplicated; Z86.59 Personal history of other mental and behavioral disorders; Z79.84 Long term (current) use of oral hypoglycemic drugs; Z79.899 Other long term (current) drug therapy
CPT/HCPCS: 80306; 99284

== ENCOUNTER 2024-03-23 20:05 | Inpatient (IN) | payer MEDICARE, OTHER ==
--- NOTE | 2024-03-23 21:00 | ED ---
Skin/Abscess/FB HPI - General Chief complaint: Skin/Abscess/Foreign Body Stated complaint: L leg abscess Time Seen by Provider: 03/23/24 20:20 Source: patient, RN notes reviewed Mode of arrival: ambulatory Limitations: no limitations - History of Present Illness Initial comments: This is a 64-year-old male with a history of uncontrolled DM presenting to the emergency department for left lower extremity wound with surrounding erythema and edema has been worsening over the past week. States the pain is exacerbated on ambulation. He denies paresthesias. Patient states that he has followed with wound care previously. he has been taking some antibiotics at home from a previous prescription however is concerned that the wound, erythema, and edema has been worsening. Denies fevers, chills, nausea, vomiting, abdominal pain, shortness of breath, difficulty breathing, chest pain. - Related Data Home Medications Medication Instructions Recorded Confirmed Atorvastatin [Lipitor] 20 mg PO HS 01/21/18 10/06/21 amLODIPine [Norvasc] 5 mg PO DAILY 01/21/18 10/06/21 Celecoxib [CeleBREX] 200 mg PO DAILY 10/06/21 10/06/21 Diclofenac Sodium Gel [Voltaren 1% 1 gm TOPICAL QID PRN 10/06/21 10/06/21 Gel] Divalproex [Depakote] 500 mg PO HS 10/06/21 10/06/21 Losartan Potassium [Cozaar] 12.5 mg PO DAILY 10/06/21 10/06/21 Metoprolol Succinate [Metoprolol 25 mg PO DAILY 10/06/21 10/06/21 Succinate ER] Nicotine 14Mg/24Hr Patch [Habitrol] 1 patch TRANSDERM DAILY PRN 10/06/21 10/06/21 Pioglitazone HCl 30 mg PO DAILY 10/06/21 10/06/21 Pregabalin 300 mg PO BID 10/06/21 10/06/21 metFORMIN HCL 1,000 mg PO BID-W/MEALS 10/06/21 10/06/21 predniSONE [Deltasone] 20 mg PO DIRECTED 10/06/21 10/06/21 Previous Rx's Medication Instructions Recorded ALPRAZolam [Xanax] 1 mg PO TID PRN 3 Days #9 tab 12/20/20 Amoxic-Pot Clav 875-125Mg 1 tab PO Q12HR 14 Days #28 tab 09/26/21 [Augmentin 875-125] Sulfamethox-Tmp 800-160Mg [Bactrim 1 tab PO Q12HR 14 Days #28 tab 09/26/21 DS 800-160 mg] Allergies Allergy/AdvReac Type Severity Reaction Status Date / Time No Known Allergies Allergy Verified 03/23/24 20:48 Review of Systems ROS Statement: Those systems with pertinent positive or pertinent negative responses have been documented in the HPI. ROS Other: All systems not noted in ROS Statement are negative. Past Medical History Past Medical History: Diabetes Mellitus, Deep Vein Thrombosis (DVT), Hypertension Additional Past Medical History / Comment(s): Hernia, degenerative arthritis, A DD, ADHD History of Any Multi-Drug Resistant Organisms: None Reported Past Surgical History: Hernia Repair, Orthopedic Surgery Additional Past Surgical History / Comment(s): Umbilical hernia repair, I&D of the left foot between the fourth and fifth toes 2016 Past Anesthesia/Blood Transfusion Reactions: No Reported Reaction Past Psychological History: ADD/ADHD, Bipolar, Depression Smoking Status: Current some day smoker Past Alcohol Use History: Abuse Past Drug Use History: Heroin, Marijuana - Past Family History Father Additional Family Medical History / Comment(s): Biological father in his 60s from complications of an ankle surgery. Mother Additional Family Medical History / Comment(s): adopted Sister(s) Additional Family Medical History / Comment(s): He has 8 sisters with no major medical problems. Patient does not have any children. General Exam - General Exam Comments Initial Comments: Visual Physical Exam Vital signs reviewed General: Well-appearing, nontoxic, no acute distress. Head: Normocephalic, atraumatic Eyes: PERRLA, EOMI ENT: Airway patent Chest: Nonlabored breathing Skin: No visual rash, normal skin tone Neuro: Alert and oriented 3 Musculoskeletal: No gross abnormalities Limitations: no limitations General appearance: alert, in no apparent distress Eye exam: Present: normal appearance, PERRL, EOMI. Absent: scleral icterus, conjunctival injection, periorbital swelling Neck exam: Present: normal inspection. Absent: tenderness, meningismus, lymphadenopathy Respiratory exam: Present: normal lung sounds bilaterally. Absent: respiratory distress, wheezes, rales, rhonchi, stridor Cardiovascular Exam: Present: regular rate, normal rhythm, normal heart sounds. Absent: systolic murmur, diastolic murmur, rubs, gallop, clicks GI/Abdominal exam: Present: soft, normal bowel sounds. Absent: distended, tenderness, guarding, rebound, rigid Left Lower Leg exam: Present: tenderness, swelling, erythema Ankle exam: Present: swelling, erythema Foot/Toe exam: Present: swelling, erythema Neurovascular tendon exam: Present: no vascular compromise. Absent: pulse deficit Back exam: Present: normal inspection Expanded Type of lesion: Present: abscess Distribution of rash: LLE Description of rash: Present: erythematous, swelling, blisters, crusting, discharge, fluctuant Course Vital Signs 03/23/24 03/24/24 03/24/24 20:49 00:04 01:00 Temperature 98.2 F 98 F Pulse Rate 109 H 91 92 Respiratory 18 17 17 Rate Blood Pressure 166/143 148/70 144/77 O2 Sat by Pulse 97 96 95 Oximetry Medical Decision Making - Medical Decision Making Was pt. sent in by a medical professional or institution (, PA, WHALE FISHERMAN, urgent care, hospital, or skilled nursing...) When possible be specific @ -No Did you speak to anyone other than the patient for history (EMS, parent, family, police, friend...)? What history was obtained from this source @ -No Did you review nursing and triage notes (agree or disagree)? Why? @ -I reviewed and agree with nursing and triage notes Were old charts reviewed (outside hosp., previous admission, EMS record, old EKG, old radiological studies, urgent care reports/EKG's, skilled nursing records)? Report findings @ -No old charts were reviewed Differential Diagnosis (chest pain, altered mental status, abdominal pain women, abdominal pain men, vaginal bleeding, weakness, fever, dyspnea, syncope, headache, dizziness, GI bleed, back pain, seizure, CVA, palpatations, mental health, musculoskeletal)? @ -Cellulitis, abscess, peripheral vascular disease, DVT, this is not all inclusive EKG interpreted by me (3pts min.). @ -none X-rays interpreted by me (1pt min.). @ -X-ray of the left tibia-fibula no acute osseous abnormality with edema along the medial left lower leg. CT interpreted by me (1pt min.). @ -None done U/S interpreted by me (1pt. min.). @ -None done What testing was considered but not performed or refused? (CT, X-rays, U/S, labs)? Why? @ -None What meds were considered but not given or refused? Why? @ -None Did you discuss the management of the patient with other professionals (professionals i.e. , PA, WHALE FISHERMAN, lab, RT, psych nurse, social science analyst, side show entertainer, teacher, chief operations officer, community case manager)? Give summary @ -Discussed with on-call [facility] provider, Kusum Castanon, in regard to admission. Patient has been accepted and will be initiated on IV antibiotics and infectious disease on consult Was smoking cessation discussed for >3mins.? @ -No Was critical care preformed (if so, how long)? @ -No Were there social determinants of health that impacted care today? How? (Homelessness, low income, unemployed, alcoholism, drug addiction, transportation, low edu. Level, literacy, decrease access to med. care, halfway, rehab)? @ -No Was there de-escalation of care discussed even if they declined (Discuss DNR or withdrawal of care, Hospice)? DNR status @ -No What co-morbidities impacted this encounter? (DM, HTN, Smoking, COPD, CAD, Cancer, CVA, ARF, Chemo, Hep., AIDS, mental health diagnosis, sleep apnea, morbid obesity)? @ -DM Was patient admitted / discharged? Hospital course, mention meds given and route, prescriptions, significant lab abnormalities, going to OR and other pertinent info. @ -Admitted. 64-year-old male with lower extremity cellulitis with abscess. Patient's vitals remarkable for hypertension with a BP 166/143 and tachycardic with a heart rate of 109, afebrile. There is severe lower extremity edema, erythema and area of purulence with no active drainage. Pedal pulses palpated and discovered with doppler. Labs remarkable for hyperglycemia with a glucose of 737, urinalysis 4+ glucose. Acetone negative. With concern for severe cellulitis patient will be admitted to internal medicine with infectious disease on consult. Blood cultures obtained and patient started on IV vancomycin. Additionally, provided with pain medications, fluids, insulin. Discussed with Dr. Us Undiagnosed new problem with uncertain prognosis? @ -No Drug Therapy requiring intensive monitoring for toxicity (Heparin, Nitro, Insulin, Cardizem)? @ -No Were any procedures done? @ -No Diagnosis/symptom? @ -cellulitis with abscess Acute, or Chronic, or Acute on Chronic? @ -acute Uncomplicated (without systemic symptoms) or Complicated (systemic symptoms)? @ -complicated Side effects of treatment? @ -No Exacerbation, Progression, or Severe Exacerbation? @ -No Poses a threat to life or bodily function? How? (Chest pain, [place], [place], pneumonia, PE, COPD, DKA, ARF, appy, cholecystitis, CVA, Diverticulitis, Homicidal, Suicidal, threat to staff... and all critical care pts) @ -No - Lab Data Result diagrams: 03/23/24 22:09 03/23/24 22:09 Lab Results 03/23/24 03/23/24 03/23/24 Range/Units 22:09 22:09 22:09 WBC 5.1 (3.8-10.6) k/uL RBC 4.07 L (4.30-5.90) m/uL Hgb 12.4 L (13.0-17.5) gm/dL Hct 39.6 (39.0-53.0) % MCV 97.3 (80.0-100.0) fL MCH 30.4 (25.0-35.0) pg MCHC 31.2 (31.0-37.0) g/dL RDW 12.4 (11.5-15.5) % Plt Count 277 (150-450) k/uL MPV 8.5 Neutrophils % 68 % Lymphocytes % 22 % Monocytes % 5 % Eosinophils % 2 % Basophils % 0 % Neutrophils # 3.5 (1.3-7.7) k/uL Lymphocytes # 1.1 (1.0-4.8) k/uL Monocytes # 0.3 (0-1.0) k/uL Eosinophils # 0.1 (0-0.7) k/uL Basophils # 0.0 (0-0.2) k/uL Hypochromasia Slight Sodium 134 L (137-145) mmol/L Potassium 4.0 (3.5-5.1) mmol/L Chloride 103 (98-107) mmol/L Carbon Dioxide 22 (22-30) mmol/L Anion Gap 9 mmol/L BUN 5 L (9-20) mg/dL Creatinine 0.65 L (0.66-1.25) mg/dL Est GFR (CKD-EPI)AfAm >90 (>60 ml/min/1.73 sqM) Est GFR (CKD-EPI)NonAf >90 (>60 ml/min/1.73 sqM) Glucose 737 H* (74-99) mg/dL Lactic Ac Sepsis Rflx Plasma Lactic Acid Masood 4.8 H* (0.7-2.0) mmol/L Calcium 9.3 (8.4-10.2) mg/dL Total Bilirubin 0.6 (0.2-1.3) mg/dL AST 23 (17-59) U/L ALT 14 (4-49) U/L Alkaline Phosphatase 85 (38-126) U/L C-Reactive Protein 2.0 H (<1.0) mg/dL Total Protein 6.5 (6.3-8.2) g/dL Albumin 4.0 (3.5-5.0) g/dL Urine Color Urine Appearance (Clear) Urine pH (5.0-8.0) Ur Specific [place] (1.001-1.035) Urine Protein (Negative) Urine Glucose (UA) (Negative) Urine Ketones (Negative) Urine Blood (Negative) Urine Nitrite (Negative) Urine Bilirubin (Negative) Urine Urobilinogen (<2.0) mg/dL Ur Leukocyte Esterase (Negative) Acetone, Qual (Negative) 03/23/24 03/23/24 03/23/24 Range/Units 22:46 22:51 23:25 WBC (3.8-10.6) k/uL RBC (4.30-5.90) m/uL Hgb (13.0-17.5) gm/dL Hct (39.0-53.0) % MCV (80.0-100.0) fL MCH (25.0-35.0) pg MCHC (31.0-37.0) g/dL RDW (11.5-15.5) % Plt Count (150-450) k/uL MPV Neutrophils % % Lymphocytes % % Monocytes % % Eosinophils % % Basophils % % Neutrophils # (1.3-7.7) k/uL Lymphocytes # (1.0-4.8) k/uL Monocytes # (0-1.0) k/uL Eosinophils # (0-0.7) k/uL Basophils # (0-0.2) k/uL Hypochromasia Sodium (137-145) mmol/L Potassium (3.5-5.1) mmol/L Chloride (98-107) mmol/L Carbon Dioxide (22-30) mmol/L Anion Gap mmol/L BUN (9-20) mg/dL Creatinine (0.66-1.25) mg/dL Est GFR (CKD-EPI)AfAm (>60 ml/min/1.73 sqM) Est GFR (CKD-EPI)NonAf (>60 ml/min/1.73 sqM) Glucose (74-99) mg/dL Lactic Ac Sepsis Rflx Y Plasma Lactic Acid Masood (0.7-2.0) mmol/L Calcium (8.4-10.2) mg/dL Total Bilirubin (0.2-1.3) mg/dL AST (17-59) U/L ALT (4-49) U/L Alkaline Phosphatase (38-126) U/L C-Reactive Protein (<1.0) mg/dL Total Protein (6.3-8.2) g/dL Albumin (3.5-5.0) g/dL Urine Color Colorless Urine Appearance Clear (Clear) Urine pH 5.5 (5.0-8.0) Ur Specific [place] 1.033 (1.001-1.035) Urine Protein Negative (Negative) Urine Glucose (UA) 4+ H (Negative) Urine Ketones Negative (Negative) Urine Blood Negative (Negative) Urine Nitrite Negative (Negative) Urine Bilirubin Negative (Negative) Urine Urobilinogen <2.0 (<2.0) mg/dL Ur Leukocyte Esterase Negative (Negative) Acetone, Qual Negative (Negative) Disposition Clinical Impression: Cellulitis and abscess of left leg, Hyperglycemia Disposition: ADMITTED IP TO THIS [facility] Condition: Stable Decision to Admit Reason: Admit from EC Decision Date: 03/24/24 Decision Time: 00:11
--- NOTE | 2024-03-23 21:23 | XR ---
EXAMINATION TYPE: XR tibia fibula LT DATE OF EXAM: 03/23/2024 9:19 PM CLINICAL INDICATION:Male, 64 years old with history of wound; [facility] COMPARISON: None TECHNIQUE: The left tibia/fibula was examined in AP and lateral projections. FINDINGS: No acute osseous process. Advanced degenerative changes of the left knee joint are apprecia susan. There is soft tissue edema seen along the medial aspect of the lower leg. No gas is seen within the soft tissues. IMPRESSION: 1. No acute osseous process. 2. Edema along the medial left lower leg. [facility], , 03/23/2024 9:21 PM
[2024-03-23 22:20] LABS: Basophils % (A) 0 %; Eosinophils # (A) 0.1 k/uL (0-0.7); Eosinophils % (A) 2 %; HCT 39.6 % (39.0-53.0); HGB 12.4 gm/dL (13.0-17.5); Hypochromasia Slight; Lymphocytes # (A) 1.1 k/uL (1.0-4.8); Lymphocytes % (A) 22 %; MCH 30.4 pg (25.0-35.0); MCHC 31.2 g/dL (31.0-37.0); MCV 97.3 fL (80.0-100.0); Mean Platelet Volume 8.5; Monocytes # (A) 0.3 k/uL (0-1.0); Monocytes % (A) 5 %; Neutrophils # (A) 3.5 k/uL (1.3-7.7); Neutrophils % (A) 68 %; Platelet Count 277 k/uL (150-450); RBC 4.07 m/uL (4.30-5.90); RDW 12.4 % (11.5-15.5); WBC 5.1 k/uL (3.8-10.6)
[2024-03-23 22:32] LABS: ALT 14 U/L (4-49); African American GFR (CKD) >90 (>60 ml/min/1.73 sqM); Anion Gap 9 mmol/L; Blood Urea Nitrogen 5 mg/dL (9-20); Calcium 9.3 mg/dL (8.4-10.2); Carbon Dioxide 22 mmol/L (22-30); Chloride 103 mmol/L (98-107); Non-African American GFR(CKD) >90 (>60 ml/min/1.73 sqM); Sodium 134 mmol/L (137-145); Total Bilirubin 0.6 mg/dL (0.2-1.3)
[2024-03-23 22:46] LABS: Glucose 737 mg/dL (74-99)
[2024-03-23 22:49] LABS: AST 23 U/L (17-59); Alkaline Phosphatase 85 U/L (38-126); Total Protein 6.5 g/dL (6.3-8.2)
[2024-03-23 23:48] LABS: Appearance,Urine Clear (Clear); Bilirubin,Urine Negative (Negative); Blood,Urine Negative (Negative); Color,Urine Colorless; Glucose,Urine (UA) 4+ (Negative); Ketones,Urine Negative (Negative); Leukocyte Esterase,Urine Negative (Negative); Nitrite,Urine Negative (Negative); PH, Urine 5.5 (5.0-8.0); Protein,Urine Negative (Negative); Specific Gravity,Urine 1.033 (1.001-1.035); Urobilinogen,Urine <2.0 mg/dL (<2.0)
[2024-03-23] MEDS ORDERED: VANCOMYCIN IV PER PHARMACY 1 EACH MISC MISCELLANE PRN (23:59)
[2024-03-24] MEDS: SODIUM CHLORIDE 0.9% 1,000 ML IV STA (00:01)
[2024-03-24] MEDS ORDERED: ACETAMINOPHEN TAB 325 MG TAB PO PRN (00:11)
[2024-03-24] MEDS ORDERED: NALOXONE 0.4 MG/ML 1 ML VIAL IV PRN (00:11)
[2024-03-24] MEDS ORDERED: KETOROLAC 15 MG/ML 1 ML VIAL IVP PRN (00:11)
[2024-03-24] MEDS: INSULIN REGULAR 100 UNIT/ML VIAL (IV) IV ONE (01:12)
[2024-03-24] MEDS: SODIUM CHLORIDE 0.9% 1,000 ML IV SCH (01:12)
[2024-03-24] MEDS: MORPHINE SULFATE 4 MG/ML SYRINGE IVP STA (01:14)
[2024-03-24] MEDS: VANCOMYCIN 1,500 MG in SODIUM CHLORIDE 0.9% 500 ML 500 ML IVPB ONE (01:16)
[2024-03-24 03:30] LABS: Glucose,Whole Blood 369 mg/dL (70-110)
[2024-03-24 03:45] LABS: Erythrocyte Sedimentation Rate 19 mm/Hr (0-20)
[2024-03-24] MEDS ORDERED: DEXTROSE 50% SYRINGE 50 ML IVP PRN ×2 (09:59)
[2024-03-24] MEDS: VANCOMYCIN 1,500 MG in SODIUM CHLORIDE 0.9% 500 ML 500 ML IVPB SCH (10:00)
[2024-03-24] MEDS: amLODIPine 5 MG TAB PO SCH ×2 (10:18→22:50)
[2024-03-24] MEDS: DAPAGLIFLOZIN PROPANEDIOL 5 MG TABLET PO SCH (10:23)
[2024-03-24 10:26] LABS: Glucose,Whole Blood 300 mg/dL (70-110)
[2024-03-24] MEDS: INSULIN DETEMIR (LEVEMIR) 100 UNIT/ML SYR SQ SCH (10:26)
--- NOTE | 2024-03-24 11:05 | US ---
EXAMINATION TYPE: US venous doppler duplex LE DATE OF EXAM: 03/24/2024 10:37 AM COMPARISON: US CLINICAL INDICATION: Male, 64 years old with history of swelling, elevated d-dimer; Elevated D-dimer, left leg redness and edema, Pain TECHNIQUE: The lower extremity deep venous system is examined utilizing real time linear array sonog jean-claude with graded compression, color doppler sonography, and spectral doppler. SIDE PERFORMED: Bilateral FINDINGS: VESSELS IMAGED: Common Femoral Vein Deep Femoral Vein Greater Saphenous Vein * Femoral Vein Popliteal Vein Small Saphenous Vein * Proximal Calf Veins (* superficial vessels) Right Leg: Negative for DVT, Color Doppler imaging shows patency of the vessels. Spectral waveforms are within normal limits. Left Leg: Negative for DVT, Color Doppler imaging shows patency of the vessels. Spectral waveforms a re within normal limits. Complex fluid collection within left pop fossa, has increased in size when compared to prior= 12.3 x 2.8 x 6.5 cm and has a soft tissue component. IMPRESSION: 1. No ultrasound evidence for deep venous thrombosis. 2. Left popliteal fossa complex cyst with soft tissue component correlate for Ahn's cyst consider MRI.. [facility], , 03/24/2024 11:03 AM
--- NOTE | 2024-03-24 11:27 | P.HPIM ---
History of Present Illness H&P Date: 03/24/24 History of present illness; patient is a 64-year-old gentleman with past medical history significant for hypertension, hyperlipidemia, diabetes mellitus open in the ER because of left lower extremity wound. Patient stated he was all right 1 week back when he started noticing a wound on his left leg which was accompanied by redness surrounding the area. Over the course of week the redness and the swelling of the leg worsened. Patient took some antibiotics that are prescribed to him previously but with no effect. There was no complaint of fever or chills. There was no complaint of lightheaded and dizziness. Patient denies any lethargy or weakness. Patient noticed that there was purulent discharge from his left leg. Because of this worsening swelling of left leg, patient came to the ER Initial lab work done in the ER showed WBC 5.1, hemoglobin 12.4, sodium 134, potassium 4, BUN 5, creatinine 0.65, glucose 737, lactate 4.8, X-ray tibia and fibula done showed no acute osseous process, edema along the medial left lower leg Patient admitted to internal medicine service REVIEW OF SYSTEMS: CONSTITUTIONAL: No fever, no malaise, no fatigue. HEENT: No recent visual problems or hearing problems. Denied any sore throat. CARDIOVASCULAR: No chest pain, orthopnea, PND, no palpitations, no syncope. PULMONARY: No shortness of breath, no cough, no hemoptysis. GASTROINTESTINAL: No diarrhea, no nausea, no vomiting, no abdominal pain. NEUROLOGICAL: No headaches, no weakness, no numbness. HEMATOLOGICAL: Denies any bleeding or petechiae. GENITOURINARY: Denies any burning micturition, frequency, or urgency. MUSCULOSKELETAL/RHEUMATOLOGICAL: As mentioned above ENDOCRINE: Denies any polyuria or polydipsia. The rest of the 14-point review of systems is negative. PHYSICAL EXAMINATION: GENERAL: The patient is alert and oriented x3, not in any acute distress. Well developed, well nourished. HEENT: Pupils are round and equally reacting to light. EOMI. No scleral icterus. No conjunctival pallor. Normocephalic, atraumatic. No pharyngeal erythema. No thyromegaly. CARDIOVASCULAR: S1 and S2 present. No murmurs, rubs, or gallops. PULMONARY: Chest is clear to auscultation, no wheezing or crackles. ABDOMEN: Soft, nontender, nondistended, normoactive bowel sounds. No palpable organomegaly. MUSCULOSKELETAL: No joint swelling or deformity. EXTREMITIES: Left leg erythema NEUROLOGICAL: Gross neurological examination did not reveal any focal deficits. SKIN: No rashes. Assessment and plan Sepsis Cellulitis of left leg Hyperglycemia Insulin-dependent diabetes mellitus Lactic acidosis Hypertension Hyperlipidemia Monitor vital signs Monitor CBC Monitor CMP Continue telemetry monitoring Ordered blood cultures Ordered ultrasound of lower extremities Ordered CT scan of left leg Ordered pharmacy dose vancomycin Ordered blood sugar monitoring, ordered sliding scale insulin and resume Lantus. Consult ID Labs and medication were reviewed.. Continue same treatment. Continue with symptomatic treatment. Resume home medication. Monitor labs and vitals. DVT and GI prophylaxis. Further recommendations as per clinical course of the patient Dictation was produced using [employer] dictation software. please excuse any grammatical, word or spelling errors. Past Medical History Past Medical History: Diabetes Mellitus, Deep Vein Thrombosis (DVT), Hypertension Additional Past Medical History / Comment(s): Hernia, degenerative arthritis, ADD, ADHD History of Any Multi-Drug Resistant Organisms: None Reported Past Surgical History: Hernia Repair, Orthopedic Surgery Additional Past Surgical History / Comment(s): Umbilical hernia repair, I&D of the left foot between the fourth and fifth toes 2016 Past Anesthesia/Blood Transfusion Reactions: No Reported Reaction Past Psychological History: ADD/ADHD, Bipolar, Depression Smoking Status: Current some day smoker Past Alcohol Use History: Abuse Past Drug Use History: Heroin, Marijuana - Past Family History Father Additional Family Medical History / Comment(s): Biological father in his 60s from complications of an ankle surgery. Mother Additional Family Medical History / Comment(s): adopted Sister(s) Additional Family Medical History / Comment(s): He has 8 sisters with no major medical problems. Patient does not have any children. Medications and Allergies Home Medications Medication Instructions Recorded Confirmed Type amLODIPine [Norvasc] 5 mg PO DAILY 01/21/18 03/24/24 History ALPRAZolam [Xanax] 1 mg PO TID PRN 3 Days #9 tab 12/20/20 03/24/24 Rx Celecoxib [CeleBREX] 200 mg PO DAILY 10/06/21 03/24/24 History Divalproex [Depakote] 500 mg PO HS 10/06/21 03/24/24 History Pregabalin 300 mg PO BID 10/06/21 03/24/24 History metFORMIN HCL 1,000 mg PO BID-W/MEALS 10/06/21 03/24/24 History Amitriptyline HCl [Elavil] 25 mg PO HS 03/24/24 03/24/24 History Dextroamphetamine/Amphetamine 30 mg PO BID-W/MEALS 03/24/24 03/24/24 History [Adderall] Empagliflozin [Jardiance] 10 mg PO DAILY 03/24/24 03/24/24 History Insulin Glargine,Hum.rec.anlog 10 units SQ DAILY 03/24/24 03/24/24 History [Lantus Solostar Pen] Allergies Allergy/AdvReac Type Severity Reaction Status Date / Time No Known Allergies Allergy Verified 03/24/24 08:23 Physical Exam Vitals: Vital Signs Temp Pulse Resp BP Pulse Ox 03/24/24 03:00 83 18 138/69 98 03/24/24 01:00 92 17 144/77 95 03/24/24 00:04 98 F 91 17 148/70 96 03/23/24 20:49 98.2 F 109 H 18 166/143 97 Intake and Output 03/23/24 03/24/24 03/24/24 22:59 06:59 14:59 Other: Weight 81.647 kg Results CBC & Chem 7: 03/23/24 22:09 03/23/24 22:09 Labs: Abnormal Lab Results - Last 24 Hours (Table) 03/23/24 03/23/24 03/23/24 Range/Units 22:09 22:09 22:09 RBC 4.07 L (4.30-5.90) m/uL Hgb 12.4 L (13.0-17.5) gm/dL Sodium 134 L (137-145) mmol/L BUN 5 L (9-20) mg/dL Creatinine 0.65 L (0.66-1.25) mg/dL Glucose 737 H* (74-99) mg/dL POC Glucose (mg/dL) (70-110) mg/dL Plasma Lactic Acid Masood 4.8 H* (0.7-2.0) mmol/L C-Reactive Protein 2.0 H (<1.0) mg/dL Urine Glucose (UA) (Negative) 03/23/24 03/24/24 03/24/24 Range/Units 23:25 00:51 03:28 RBC (4.30-5.90) m/uL Hgb (13.0-17.5) gm/dL Sodium (137-145) mmol/L BUN (9-20) mg/dL Creatinine (0.66-1.25) mg/dL Glucose (74-99) mg/dL POC Glucose (mg/dL) 369 H (70-110) mg/dL Plasma Lactic Acid Masood 3.9 H* (0.7-2.0) mmol/L C-Reactive Protein (<1.0) mg/dL Urine Glucose (UA) 4+ H (Negative)
[2024-03-24] MEDS: INSULIN ASPART (NovoLOG) 100 UNIT/ML VIAL SQ SCH (12:00)
[2024-03-24 12:01] LABS: Glucose,Whole Blood 287 mg/dL (70-110)
--- NOTE | 2024-03-24 12:32 | CT ---
CT left lower leg. HISTORY: Pain and swelling. COMPARISON: None TECHNIQUE: Multiple axial images are obtained from the distal thigh to the ankle with IV contrast mat erial. FINDINGS: There is marked osteoarthritic change about 3 compartments of the left knee with marked joint space n arrowing, hypertrophic spurring and subchondral cyst. There is a large subchondral cyst in the tibial plateau. The left ankle is intact. There is a large joint effusion and a 3.3 cm Ahn cyst. Throughout the lower leg soft tissues, there is a marked thickening of the dermis and diffuse edema in the subcutaneous soft tissues. There is fluid fluid and swelling within the calf musculature. Ther e is no discrete abscess. There are no gas bubbles within the soft tissues to suspect necrotizing fas ciitis or myositis. IMPRESSION: 1. Marked diffuse cellulitis and calf muscle myositis without discrete abscess. 2. Marked tricompartment osteoarthritis of the left knee. 3. 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 Given the degree of lower leg inflammation, the possi bility of an infected Ahn's cyst and septic joint should be excluded. [facility], , 03/24/2024 12:30 PM
[2024-03-24] MEDS: MORPHINE SULFATE 4 MG/ML SYRINGE IV PRN (16:14)
[2024-03-24 18:12] LABS: Glucose,Whole Blood 147 mg/dL (70-110)
[2024-03-24 20:09] LABS: Glucose,Whole Blood 362 mg/dL (70-110)
[2024-03-24 21:16] LABS: Glucose,Whole Blood 450 mg/dL (70-110)
[2024-03-24] MEDS: DIVALPROEX 500 MG TABLET.DR PO SCH (21:52)
[2024-03-24] MEDS: PREGABALIN 100 MG CAP PO SCH (21:52)
[2024-03-24] MEDS: AMITRIPTYLINE HCL 25 MG TAB PO SCH (22:50)
[2024-03-25 06:19] LABS: Glucose,Whole Blood 167 mg/dL (70-110)
[2024-03-25] MEDS: VANCOMYCIN TROUGH DUE 1 EACH MISC MISCELLANE ONE (08:53)
--- NOTE | 2024-03-25 09:26 | P.CONS ---
History of Present Illness - Reason for Consult Consult date: 03/24/24 Cellulitis with abscess Requesting physician: Rosina Lua - Chief Complaint Left leg pain swelling redness x 1 week - History of Present Illness Patient is a 64-year-old male with a past medical history significant for diabetes mellitus DVT hypertension presenting to the hospital for evaluation of left lower extremity swelling redness and pain that apparently has been getting worse over the last 1 week patient denies any history of any trauma, did not recall scratching the area noticed to having diffuse swelling and redness and the patient did have some leftover antibiotic at home that we took without any improvement patient not having any wheezing pain swelling redness to the left leg patient describes the pain to be throbbing about 8 out of 10 without radiation with associated swelling redness denies any foul-smelling drainage patient did not recall any fever or chills and did not have any fever on presentation to the hospital patient was not tachycardic hypotensive or hypoxic patient did have a white count of 5.1 creatinine 0.65 lactic acid 4.8 liver enzymes are normal serum acetone was negative patient did have a venous Doppler that was negative for DVT, patient was started on vancomycin infectious disease was consulted for further management of antibiotic therapy Review of Systems Positive point and negatives has been mentioned in the HPI, complete review of systems was performed and all other systems are negative Past Medical History Past Medical History: Diabetes Mellitus, Deep Vein Thrombosis (DVT), Hypertension Additional Past Medical History / Comment(s): Hernia, degenerative arthritis, ADD, ADHD History of Any Multi-Drug Resistant Organisms: None Reported Past Surgical History: Hernia Repair, Orthopedic Surgery Additional Past Surgical History / Comment(s): Umbilical hernia repair, I&D of the left foot between the fourth and fifth toes 2016 Past Anesthesia/Blood Transfusion Reactions: No Reported Reaction Past Psychological History: ADD/ADHD, Bipolar, Depression Smoking Status: Current some day smoker Past Alcohol Use History: Abuse Past Drug Use History: Heroin, Marijuana - Past Family History Father Additional Family Medical History / Comment(s): Biological father in his 60s from complications of an ankle surgery. Mother Additional Family Medical History / Comment(s): adopted Sister(s) Additional Family Medical History / Comment(s): He has 8 sisters with no major medical problems. Patient does not have any children. Medications and Allergies Home Medications Medication Instructions Recorded Confirmed Type amLODIPine [Norvasc] 5 mg PO BID 01/21/18 03/24/24 History ALPRAZolam [Xanax] 1 mg PO TID PRN 3 Days #9 tab 12/20/20 03/24/24 Rx Celecoxib [CeleBREX] 200 mg PO DAILY 10/06/21 03/24/24 History Divalproex [Depakote] 500 mg PO HS 10/06/21 03/24/24 History Pregabalin 300 mg PO BID 10/06/21 03/24/24 History metFORMIN HCL 1,000 mg PO BID-W/MEALS 10/06/21 03/24/24 History Amitriptyline HCl [Elavil] 25 mg PO HS 03/24/24 03/24/24 History Dextroamphetamine/Amphetamine 30 mg PO BID-W/MEALS 03/24/24 03/24/24 History [Adderall] Empagliflozin [Jardiance] 10 mg PO DAILY 03/24/24 03/24/24 History Insulin Glargine,Hum.rec.anlog 10 units SQ DAILY 03/24/24 03/24/24 History [Lantus Solostar Pen] Allergies Allergy/AdvReac Type Severity Reaction Status Date / Time No Known Allergies Allergy Verified 03/24/24 08:23 Physical Exam Vitals: Vital Signs Temp Pulse Resp BP Pulse Ox 03/24/24 10:28 74 20 140/77 97 03/24/24 03:00 83 18 138/69 98 03/24/24 01:00 92 17 144/77 95 03/24/24 00:04 98 F 91 17 148/70 96 03/23/24 20:49 98.2 F 109 H 18 166/143 97 Intake and Output 03/23/24 03/24/24 03/24/24 22:59 06:59 14:59 Other: Weight 81.647 kg GENERAL DESCRIPTION: Elderly male lying in bed, no distress. No tachypnea or accessory muscle of respiration use. HEENT: Shows Pallor , no scleral icterus. Oral mucous membrane is dry. NECK: Trachea central, no thyromegaly. LUNGS: Unlabored breathing. Clear to auscultation anteriorly. No wheeze or cr ackle. HEART: S1, S2, regular rate and rhythm. No loud murmur ABDOMEN: Soft, no tenderness , guarding or rigidity, no organomegaly EXTREMITIES: Left lower extremity did have diffuse swelling and redness with small wound with some drainage was cultured SKIN: No rash, no masses palpable. NEUROLOGICAL: The patient is awake, alert, oriented x3, mood and affect normal. Results CBC & Chem 7: 03/25/24 03:03 03/26/24 04:09 Labs: Abnormal Lab Results - Last 24 Hours (Table) 03/23/24 03/23/24 03/23/24 Range/Units 22:09 22:09 22:09 RBC 4.07 L (4.30-5.90) m/uL Hgb 12.4 L (13.0-17.5) gm/dL Sodium 134 L (137-145) mmol/L BUN 5 L (9-20) mg/dL Creatinine 0.65 L (0.66-1.25) mg/dL Glucose 737 H* (74-99) mg/dL POC Glucose (mg/dL) (70-110) mg/dL Plasma Lactic Acid Masood 4.8 H* (0.7-2.0) mmol/L C-Reactive Protein 2.0 H (<1.0) mg/dL Urine Glucose (UA) (Negative) 03/23/24 03/24/24 03/24/24 Range/Units 23:25 00:51 03:28 RBC (4.30-5.90) m/uL Hgb (13.0-17.5) gm/dL Sodium (137-145) mmol/L BUN (9-20) mg/dL Creatinine (0.66-1.25) mg/dL Glucose (74-99) mg/dL POC Glucose (mg/dL) 369 H (70-110) mg/dL Plasma Lactic Acid Masood 3.9 H* (0.7-2.0) mmol/L C-Reactive Protein (<1.0) mg/dL Urine Glucose (UA) 4+ H (Negative) 03/24/24 Range/Units 10:25 RBC (4.30-5.90) m/uL Hgb (13.0-17.5) gm/dL Sodium (137-145) mmol/L BUN (9-20) mg/dL Creatinine (0.66-1.25) mg/dL Glucose (74-99) mg/dL POC Glucose (mg/dL) 300 H (70-110) mg/dL Plasma Lactic Acid Masood (0.7-2.0) mmol/L C-Reactive Protein (<1.0) mg/dL Urine Glucose (UA) (Negative) Assessment and Plan (1) Cellulitis and abscess of left leg Current Visit: Yes Status: Acute Code(s): L03.116 - CELLULITIS OF LEFT LOWER LIMB; L02.416 - CUTANEOUS ABSCESS OF LEFT LOWER LIMB SNOMED Code(s): 343676895 Plan: 1patient presented to hospital with left lower extremity pain swelling redness has been diagnosed with a cellulitis likely from gram-positive skin betsy underlying abscess not entirely excluded 2-await CT of the left lower extremity to make sure no evidence of any drainable abscess that need to be drained 3-blood cultures obtained as well as local culture to guide further antibiotic therapy 4-vancomycin pharmacy to dose target trough of 15 while watching kidney function and Vanco trough closely We will follow on clinical condition and cultures to further adjust medication if needed Thank you for this consultation we will follow the patient along with you Dictation was produced using [employer] dictation software. please excuse any grammatical, word or spelling errors. Time with Patient: Greater than 30
[2024-03-25 09:29] LABS: ALT 12 U/L (10-49); AST 13 U/L (14-35); Albumin 3.3 g/dL (3.8-4.9); Alkaline Phosphatase 97 U/L (41-126); Blood Urea Nitrogen 7.5 mg/dL (9.0-27.0); Calcium 8.9 mg/dL (8.7-10.3); Carbon Dioxide 26.5 mmol/L (21.6-31.8); Chloride 106 mmol/L (96-109); Globulin 2.2 g/dL (1.6-3.3); Glucose 118 mg/dL (70-110); Potassium 4.3 mmol/L (3.5-5.5); Sodium 140 mmol/L (135-145); Total Bilirubin <0.2 mg/dL (0.3-1.2); Total Protein 5.5 g/dL (6.2-8.2)
[2024-03-25 09:45] LABS: Basophils # (A) 0.05 X 10*3/uL (0.00-0.10); Basophils % (A) 0.9 %; Eosinophils # (A) 0.33 X 10*3/uL (0.04-0.35); Eosinophils % (A) 5.9 %; HCT 36.5 % (39.6-50.0); HGB 12.1 g/dL (13.0-17.0); Lymphocytes # (A) 1.58 X 10*3/uL (0.90-5.00); Lymphocytes % (A) 28.2 %; MCH 30.4 pg (27.0-32.0); MCHC 33.2 g/dL (32.0-37.0); MCV 91.7 FL (80.0-97.0); Mean Platelet Volume 10.9 FL (9.5-12.2); Monocytes # (A) 0.44 X 10*3/uL (0.20-1.00); Monocytes % (A) 7.9 %; NRBC Per 100 WBC 0 X 10*3/uL (0.00-0.01); Neutrophils # (A) 3.17 X 10*3/uL (1.80-7.70); Neutrophils % (A) 56.6 %; Platelet Count 265 X 10*3/uL (140-440); RBC 3.98 X 10*6/uL (4.40-5.60); RDW 12.2 % (11.5-14.5)
[2024-03-25 11:35] LABS: Glucose,Whole Blood 237 mg/dL (70-110)
--- NOTE | 2024-03-25 12:04 | P.CNOR ---
History of Present Illness - [facility] Consult date: 03/25/24 Consult reason: other History of present illness: Patient is a pleasant 64-year-old male who was hospitalized in regards to cellulitis at his left lower leg. The patient has history of diabetes and had a cut on his leg about a week ago. He says it developed further redness and swelling at home. He presented to the hospital is admitted in regards to his cellulitis. He says he has a long history of arthritis in his left knee. He says he manages that adequately and still ambulates on his own. He denies any new problems at his knee. Denies any changes at the ankle foot or toes. He says he denies any fevers or chills. His abdomen is been soft. His pain and minor issue has been at the inside of his left calf. He feels it is doing better here in the hospital with antibiotics. He denies any specific injury to his leg. Review of Systems As stated per HPI. He has no new pain in his left knee. His long chronic history of osteoarthritis of his left knee. He denies any fevers or chills. Denies any chest pain shortness of breath. Past Medical History Past Medical History: Diabetes Mellitus, Deep Vein Thrombosis (DVT), Hyperte nsion Additional Past Medical History / Comment(s): Hernia, degenerative arthritis, ADD, ADHD History of Any Multi-Drug Resistant Organisms: None Reported Past Surgical History: Hernia Repair, Orthopedic Surgery Additional Past Surgical History / Comment(s): Umbilical hernia repair, I&D of the left foot between the fourth and fifth toes 2016 Past Anesthesia/Blood Transfusion Reactions: No Reported Reaction Past Psychological History: ADD/ADHD, Bipolar, Depression Smoking Status: Current some day smoker Past Alcohol Use History: Abuse Past Drug Use History: Heroin, Marijuana - Past Family History Father Additional Family Medical History / Comment(s): Biological father in his 60s from complications of an ankle surgery. Mother Additional Family Medical History / Comment(s): adopted Sister(s) Additional Family Medical History / Comment(s): He has 8 sisters with no major medical problems. Patient does not have any children. Medications and Allergies Home Medications Medication Instructions Recorded Confirmed Type amLODIPine [Norvasc] 5 mg PO BID 01/21/18 03/24/24 History ALPRAZolam [Xanax] 1 mg PO TID PRN 3 Days #9 tab 12/20/20 03/24/24 Rx Celecoxib [CeleBREX] 200 mg PO DAILY 10/06/21 03/24/24 History Divalproex [Depakote] 500 mg PO HS 10/06/21 03/24/24 History Pregabalin 300 mg PO BID 10/06/21 03/24/24 History metFORMIN HCL 1,000 mg PO BID-W/MEALS 10/06/21 03/24/24 History Amitriptyline HCl [Elavil] 25 mg PO HS 03/24/24 03/24/24 History Dextroamphetamine/Amphetamine 30 mg PO BID-W/MEALS 03/24/24 03/24/24 History [Adderall] Empagliflozin [Jardiance] 10 mg PO DAILY 03/24/24 03/24/24 History Insulin Glargine,Hum.rec.anlog 10 units SQ DAILY 03/24/24 03/24/24 History [Lantus Solostar Pen] Allergies Allergy/AdvReac Type Severity Reaction Status Date / Time No Known Allergies Allergy Verified 03/24/24 08:23 Physical Examination Osteopathic Statement: *. No significant issues noted on an osteopathic structural exam other than those noted in the History and Physical/Consult. - Knee left Appearance: varus alignment in stance (At his left knee he has severe osteoarthritic chronic changes. There is no erythema in his left knee. There is no effusion. He has tenderness over his medial and lateral joint line. He has good motion at his left knee.) Tenderness with palpation: none (His left knee has good motion without any pain with passive motion.) Full ROM: yes (He has his normal active and passive range of motion without pain in his knee. There is some erythema at his medial calf. There is no fluctuant mass. There is some induration. There is no drainage or weeping he has sustained dorsiflexion plantarflexion EHL) Results - Labs Labs: Abnormal Lab Results - Last 24 Hours (Table) 03/24/24 03/24/24 03/24/24 Range/Units 11:59 18:11 20:08 RBC (4.40-5.60) X 10*6/uL Hgb (13.0-17.0) g/dL Hct (39.6-50.0) % BUN (9.0-27.0) mg/dL Glucose (70-110) mg/dL POC Glucose (mg/dL) 287 H 147 H 362 H (70-110) mg/dL Hemoglobin A1c (<=6.0) % Total Bilirubin (0.3-1.2) mg/dL AST (14-35) U/L Total Protein (6.2-8.2) g/dL Albumin (3.8-4.9) g/dL Albumin/Globulin Ratio (1.60-3.17) Ratio 03/24/24 03/25/24 03/25/24 Range/Units 21:14 03:03 03:03 RBC 3.98 L (4.40-5.60) X 10*6/uL Hgb 12.1 L (13.0-17.0) g/dL Hct 36.5 L (39.6-50.0) % BUN (9.0-27.0) mg/dL Glucose (70-110) mg/dL POC Glucose (mg/dL) 450 H (70-110) mg/dL Hemoglobin A1c 9.4 H (<=6.0) % Total Bilirubin (0.3-1.2) mg/dL AST (14-35) U/L Total Protein (6.2-8.2) g/dL Albumin (3.8-4.9) g/dL Albumin/Globulin Ratio (1.60-3.17) Ratio 03/25/24 03/25/24 03/25/24 Range/Units 03:03 06:18 11:34 RBC (4.40-5.60) X 10*6/uL Hgb (13.0-17.0) g/dL Hct (39.6-50.0) % BUN 7.5 L (9.0-27.0) mg/dL Glucose 118 H (70-110) mg/dL POC Glucose (mg/dL) 167 H 237 H (70-110) mg/dL Hemoglobin A1c (<=6.0) % Total Bilirubin <0.2 L (0.3-1.2) mg/dL AST 13 L (14-35) U/L Total Protein 5.5 L (6.2-8.2) g/dL Albumin 3.3 L (3.8-4.9) g/dL Albumin/Globulin Ratio 1.50 L (1.60-3.17) Ratio Microbiology - Last 24 Hours (Table) 03/24/24 12:50 Gram Stain - Preliminary Leg - Left 03/23/24 23:45 Blood Culture - Preliminary Blood H & H 03/23/24 03/25/24 Range/Units 22:09 03:03 Hgb 12.4 L 12.1 L (13.0-17.5) gm/dL Hct 39.6 36.5 L (39.0-53.0) % Result Diagrams: 03/25/24 03:03 03/25/24 03:03 - Diagnostic results Knee CT: report reviewed, image reviewed (I reviewed the imaging at the lower extremity. There is some soft tissue swelling around his medial gastroc. There is a Ahn's cyst and severe osteoarthritic changes at his left knee with s ubchondral bone cyst at the proximal tibia which is well-demarcated. There is no gross effusion.) Assessment and Plan Assessment: Cellulitis left lower extremity improving with antibiotic care as per infectious disease Chronic left knee osteoarthritis with varus deformity and subchondral bone cyst No clinical evidence of infection at the left knee Plan: Cellulitis left lower extremity improving with antibiotic care as per infectious disease Chronic left knee osteoarthritis with varus deformity and subchondral bone cyst No clinical evidence of infection at the left knee The patient does not have clinical evidence of infection at his left knee. There is no erythema at his knee and he has good motion. He has chronic o steoarthritis and a Ahn's cyst as seen on his CT scan there is some subchondral bone cyst formation and tricompartmental disease. These are chronic in nature and do not reflect acute change or infectious process. I do not think that he needs aspiration of his knee or specific acute care at his knee. He could be a candidate for further treatment on an elective basis at his left knee for his osteoarthritis if he chooses to down the line. He should continue with his antibiotic management and treatment for cellulitis as per medicine and infectious disease. He may weight-bear as tolerated He can follow-up with orthopedics on an as-needed basis. It is okay for the patient to discharge from an orthopedic standpoint at his knee.
--- NOTE | 2024-03-25 13:26 | P.PN ---
Subjective Progress Note Date: 03/25/24 patient is a 64-year-old gentleman with past medical history significant for hypertension, hyperlipidemia, diabetes mellitus open in the ER because of left lower extremity wound. Patient stated he was all right 1 week back when he started noticing a wound on his left leg which was accompanied by redness s urrounding the area. Over the course of week the redness and the swelling of the leg worsened. Patient took some antibiotics that are prescribed to him previously but with no effect. There was no complaint of fever or chills. There was no complaint of lightheaded and dizziness. Patient denies any lethargy or weakness. Patient noticed that there was purulent discharge from his left leg. Because of this worsening swelling of left leg, patient came to the ER Initial lab work done in the ER showed WBC 5.1, hemoglobin 12.4, sodium 134, potassium 4, BUN 5, creatinine 0.65, glucose 737, lactate 4.8, X-ray tibia and fibula done showed no acute osseous process, edema along the medial left lower leg Patient admitted to internal medicine service 03/25. Patient seen and examined. CT left leg done showed marked diffuse colitis and calf muscle myositis without discrete abscess, marked tricom partmental osteoarthritis of left knee. Ultrasound lower extremities negative for DVT REVIEW OF SYSTEMS: CONSTITUTIONAL: No fever, no malaise,. CARDIOVASCULAR: No chest pain, no palpitations, no syncope. PULMONARY: No shortness of breath, no cough, GASTROINTESTINAL: No diarrhea, no nausea, no vomiting, no abdominal pain. NEUROLOGICAL: No headaches, no weakness, PHYSICAL EXAMINATION: GENERAL: The patient is alert and oriented x3, not in any acute distress. Well developed, well nourished. HEENT: Pupils are round and equally reacting to light. EOMI. No scleral icterus. No conjunctival pallor. Normocephalic, atraumatic. No pharyngeal erythema. No thyromegaly. CARDIOVASCULAR: S1 and S2 present. No murmurs, rubs, or gallops. PULMONARY: Chest is clear to auscultation, no wheezing or crackles. ABDOMEN: Soft, nontender, nondistended, normoactive bowel sounds. No palpable organomegaly. MUSCULOSKELETAL: No joint swelling or deformity. EXTREMITIES: Left leg erythema NEUROLOGICAL: Gross neurological examination did not reveal any focal deficits. SKIN: No rashes. Assessment and plan Sepsis Cellulitis of left leg Hyperglycemia Insulin-dependent diabetes mellitus Lactic acidosis Hypertension Hyperlipidemia Monitor vital signs Monitor CBC Monitor CMP CT left leg done showed marked diffuse colitis and calf muscle myositis without discrete abscess, marked tricompartmental osteoarthritis of left knee. Ultrasound lower extremities negative for DVT Continue pharmacy vancomycin ID following Orthopedic surgery consulted Labs and medication were reviewed.. Continue same treatment. Continue with symptomatic treatment. Resume home medication. Monitor labs and vitals. DVT and GI prophylaxis. Further recommendations as per clinical course of the patient Dictation was produced using [employer] dictation software. please excuse any grammatical, word or spelling errors. Objective - Vital Signs Vital signs: Vital Signs Temp 97.9 F 03/25/24 08:20 Pulse 71 03/25/24 08:20 Resp 20 03/25/24 08:20 BP 145/80 03/25/24 08:20 Pulse Ox 96 03/25/24 08:20 FiO2 Intake & Output 03/24/24 03/25/24 03/25/24 18:59 06:59 18:59 Intake Total 780 Balance 780 Weight 86.3 kg Intake: Oral 780 Other: # Voids 3 - Labs CBC & Chem 7: 03/25/24 03:03 03/25/24 03:03 Labs: Abnormal Lab Results - Last 24 Hours (Table) 03/24/24 03/24/24 03/24/24 Range/Units 10:25 11:59 18:11 RBC (4.40-5.60) X 10*6/uL Hgb (13.0-17.0) g/dL Hct (39.6-50.0) % BUN (9.0-27.0) mg/dL Glucose (70-110) mg/dL POC Glucose (mg/dL) 300 H 287 H 147 H (70-110) mg/dL Hemoglobin A1c (<=6.0) % Total Bilirubin (0.3-1.2) mg/dL AST (14-35) U/L Total Protein (6.2-8.2) g/dL Albumin (3.8-4.9) g/dL Albumin/Globulin Ratio (1.60-3.17) Ratio 03/24/24 03/24/24 03/25/24 Range/Units 20:08 21:14 03:03 RBC (4.40-5.60) X 10*6/uL Hgb (13.0-17.0) g/dL Hct (39.6-50.0) % BUN (9.0-27.0) mg/dL Glucose (70-110) mg/dL POC Glucose (mg/dL) 362 H 450 H (70-110) mg/dL Hemoglobin A1c 9.4 H (<=6.0) % Total Bilirubin (0.3-1.2) mg/dL AST (14-35) U/L Total Protein (6.2-8.2) g/dL Albumin (3.8-4.9) g/dL Albumin/Globulin Ratio (1.60-3.17) Ratio 03/25/24 03/25/24 03/25/24 Range/Units 03:03 03:03 06:18 RBC 3.98 L (4.40-5.60) X 10*6/uL Hgb 12.1 L (13.0-17.0) g/dL Hct 36.5 L (39.6-50.0) % BUN 7.5 L (9.0-27.0) mg/dL Glucose 118 H (70-110) mg/dL POC Glucose (mg/dL) 167 H (70-110) mg/dL Hemoglobin A1c (<=6.0) % Total Bilirubin <0.2 L (0.3-1.2) mg/dL AST 13 L (14-35) U/L Total Protein 5.5 L (6.2-8.2) g/dL Albumin 3.3 L (3.8-4.9) g/dL Albumin/Globulin Ratio 1.50 L (1.60-3.17) Ratio Microbiology - Last 24 Hours (Table) 03/24/24 12:50 Gram Stain - Preliminary Leg - Left 03/23/24 23:45 Blood Culture - Preliminary Blood
--- NOTE | 2024-03-25 14:48 | P.PN ---
Subjective Progress Note Date: 03/25/24 Principal diagnosis: Reason for follow-up is left leg abscess cellulitis Patient is a 64-year-old male with a past medical history significant for diabetes mellitus DVT hypertension presenting to the hospital for evaluation of left lower extremity swelling redness and pain that apparently has been getting worse over the last 1 week patient denies any history of any trauma, patient has been diagnosed with left leg cellulitis CT did not show any drainable abscess. On today's evaluation that is 03/25/2024, patient did not have any fever and denies any chills, patient is breathing comfortably on room air, patient with no chest pain or cough patient did not have any abdominal pain nausea vomiting or any loose stools patient pain to the left leg is slightly decreased in intensity Patient white count is 5.60 creatinine 0.6 Vanco trough is 12.2 cultures are currently pending Objective - Vital Signs Vital signs: Vital Signs Temp 97.9 F 03/25/24 08:20 Pulse 71 03/25/24 08:20 Resp 20 03/25/24 08:20 BP 145/80 03/25/24 08:20 Pulse Ox 96 03/25/24 08:20 FiO2 Intake & Output 03/24/24 03/25/24 03/25/24 18:59 06:59 18:59 Intake Total 780 Balance 780 Weight 86.3 kg Intake: Oral 780 Other: # Voids 3 - Exam GENERAL DESCRIPTION: An elderly male lying in bed in no distress RESPIRATORY SYSTEM: Unlabored breathing , decreased breath sounds at bases HEART: S1 S2 regular rate and rhythm , ABDOMEN: Soft , no tenderness EXTREMITIES: Left leg swelling redness slightly decreased - Labs CBC & Chem 7: 03/25/24 03:03 03/25/24 03:03 Labs: Abnormal Lab Results - Last 24 Hours (Table) 03/24/24 03/24/24 03/24/24 Range/Units 18:11 20:08 21:14 RBC (4.40-5.60) X 10*6/uL Hgb (13.0-17.0) g/dL Hct (39.6-50.0) % BUN (9.0-27.0) mg/dL Glucose (70-110) mg/dL POC Glucose (mg/dL) 147 H 362 H 450 H (70-110) mg/dL Hemoglobin A1c (<=6.0) % Total Bilirubin (0.3-1.2) mg/dL AST (14-35) U/L Total Protein (6.2-8.2) g/dL Albumin (3.8-4.9) g/dL Albumin/Globulin Ratio (1.60-3.17) Ratio 03/25/24 03/25/24 03/25/24 Range/Units 03:03 03:03 03:03 RBC 3.98 L (4.40-5.60) X 10*6/uL Hgb 12.1 L (13.0-17.0) g/dL Hct 36.5 L (39.6-50.0) % BUN 7.5 L (9.0-27.0) mg/dL Glucose 118 H (70-110) mg/dL POC Glucose (mg/dL) (70-110) mg/dL Hemoglobin A1c 9.4 H (<=6.0) % Total Bilirubin <0.2 L (0.3-1.2) mg/dL AST 13 L (14-35) U/L Total Protein 5.5 L (6.2-8.2) g/dL Albumin 3.3 L (3.8-4.9) g/dL Albumin/Globulin Ratio 1.50 L (1.60-3.17) Ratio 03/25/24 03/25/24 Range/Units 06:18 11:34 RBC (4.40-5.60) X 10*6/uL Hgb (13.0-17.0) g/dL Hct (39.6-50.0) % BUN (9.0-27.0) mg/dL Glucose (70-110) mg/dL POC Glucose (mg/dL) 167 H 237 H (70-110) mg/dL Hemoglobin A1c (<=6.0) % Total Bilirubin (0.3-1.2) mg/dL AST (14-35) U/L Total Protein (6.2-8.2) g/dL Albumin (3.8-4.9) g/dL Albumin/Globulin Ratio (1.60-3.17) Ratio Microbiology - Last 24 Hours (Table) 03/24/24 12:50 Gram Stain - Preliminary Leg - Left 03/23/24 23:45 Blood Culture - Preliminary Blood Assessment and Plan (1) Cellulitis and abscess of left leg Current Visit: Yes Status: Acute Code(s): L03.116 - CELLULITIS OF LEFT LOWER LIMB; L02.416 - CUTANEOUS ABSCESS OF LEFT LOWER LIMB SNOMED Code(s): 456153774 Plan: 1patient presented to hospital with left lower extremity pain swelling redness has been diagnosed with a cellulitis likely from gram-positive skin betsy underlying abscess bilateral excluded 2-patient did have CT of the left lower extremity concerning for possible Ahn's cyst but no drainable abscess Ortho has evaluated the patient. No concern to the knee 3-blood cultures obtained as well as local culture to guide further antibiotic therapy which are currently pending 4-patient will be treated vancomycin pharmacy to dose target trough of 15 while waiting for the culture to finalize Dictation was produced using [employer] dictation software. please excuse any grammatical, word or spelling errors. Time with Patient: Less than 30
[2024-03-25 15:18] VITALS: BMI 23.1
[2024-03-25 16:54] LABS: Glucose,Whole Blood 182 mg/dL (70-110)
[2024-03-25] MEDS: AMPICILLIN-SULBACTAM 3 GM in SODIUM CHLORIDE 0.9% 100 ML IVPB SCH (17:23)
[2024-03-25 21:10] LABS: Glucose,Whole Blood 211 mg/dL (70-110)
[2024-03-25] MEDS: ALPRAZolam 1 MG TAB PO PRN (21:33)
[2024-03-26 05:39] LABS: African American GFR (CKD) >90 (>60 ml/min/1.73 sqM); Non-African American GFR(CKD) >90 (>60 ml/min/1.73 sqM)
[2024-03-26 06:52] LABS: Glucose,Whole Blood 246 mg/dL (70-110)
[2024-03-26 11:41] LABS: Glucose,Whole Blood 220 mg/dL (70-110)
--- NOTE | 2024-03-26 12:26 | P.PN ---
Subjective Progress Note Date: 03/26/24 patient is a 64-year-old gentleman with past medical history significant for hypertension, hyperlipidemia, diabetes mellitus open in the ER because of left lower extremity wound. Patient stated he was all right 1 week back when he started noticing a wound on his left leg which was accompanied by redness s urrounding the area. Over the course of week the redness and the swelling of the leg worsened. Patient took some antibiotics that are prescribed to him previously but with no effect. There was no complaint of fever or chills. There was no complaint of lightheaded and dizziness. Patient denies any lethargy or weakness. Patient noticed that there was purulent discharge from his left leg. Because of this worsening swelling of left leg, patient came to the ER Initial lab work done in the ER showed WBC 5.1, hemoglobin 12.4, sodium 134, potassium 4, BUN 5, creatinine 0.65, glucose 737, lactate 4.8, X-ray tibia and fibula done showed no acute osseous process, edema along the medial left lower leg Patient admitted to internal medicine service 03/25. Patient seen and examined. CT left leg done showed marked diffuse colitis and calf muscle myositis without discrete abscess, marked tricom partmental osteoarthritis of left knee. Ultrasound lower extremities negative for DVT /15. Patient seen and examined. State left leg looks better compared to yesterday REVIEW OF SYSTEMS: CONSTITUTIONAL: No fever, no malaise,. CARDIOVASCULAR: No chest pain, no palpitations, no syncope. PULMONARY: No shortness of breath, no cough, GASTROINTESTINAL: No diarrhea, no nausea, no vomiting, no abdominal pain. NEUROLOGICAL: No headaches, no weakness, PHYSICAL EXAMINATION: GENERAL: The patient is alert and oriented x3, not in any acute distress. Well developed, well nourished. HEENT: Pupils are round and equally reacting to light. EOMI. No scleral icterus. No conjunctival pallor. Normocephalic, atraumatic. No pharyngeal erythema. No thyromegaly. CARDIOVASCULAR: S1 and S2 present. No murmurs, rubs, or gallops. PULMONARY: Chest is clear to auscultation, no wheezing or crackles. ABDOMEN: Soft, nontender, nondistended, normoactive bowel sounds. No palpable organomegaly. MUSCULOSKELETAL: No joint swelling or deformity. EXTREMITIES: Left leg erythema NEUROLOGICAL: Gross neurological examination did not reveal any focal deficits. SKIN: No rashes. Assessment and plan Sepsis Cellulitis of left leg Hyperglycemia Insulin-dependent diabetes mellitus Lactic acidosis Hypertension Hyperlipidemia Monitor vital signs Monitor CBC Monitor CMP CT left leg done showed marked diffuse colitis and calf muscle myositis without discrete abscess, marked tricompartmental osteoarthritis of left knee. Ultrasound lower extremities negative for DVT Continue pharmacy vancomycin ID following Orthopedic surgery evaluated, does not think there is any involvement of knee joint with low suspicion for infection. Labs and medication were reviewed.. Continue same treatment. Continue with symptomatic treatment. Resume home medication. Monitor labs and vitals. DVT and GI prophylaxis. Further recommendations as per clinical course of the patient Dictation was produced using [employer] dictation software. please excuse any grammatical, word or spelling errors. Objective - Vital Signs Vital signs: Vital Signs Temp 98.6 F 03/26/24 07:25 Pulse 63 03/26/24 07:25 Resp 20 03/26/24 09:15 BP 108/58 03/26/24 07:25 Pulse Ox 94 L 03/26/24 07:25 FiO2 Intake & Output 03/25/24 03/26/24 03/26/24 18:59 06:59 18:59 Intake Total 1620 540 Balance 1620 540 Weight 86.3 kg 86.5 kg Intake: Oral 1620 540 Other: Voiding Method Toilet # Voids 6 2 1 - Labs CBC & Chem 7: 03/25/24 03:03 03/26/24 04:09 Labs: Abnormal Lab Results - Last 24 Hours (Table) 03/25/24 03/25/24 03/26/24 Range/Units 16:53 21:09 06:50 POC Glucose (mg/dL) 182 H 211 H 246 H (70-110) mg/dL 03/26/24 Range/Units 11:40 POC Glucose (mg/dL) 220 H (70-110) mg/dL Microbiology - Last 24 Hours (Table) 03/23/24 23:45 Blood Culture - Preliminary Blood 03/24/24 12:50 Gram Stain - Preliminary Leg - Left
--- NOTE | 2024-03-26 14:50 | P.PN ---
Subjective Progress Note Date: 03/26/24 Principal diagnosis: Reason for follow-up is left leg abscess cellulitis Patient is a 64-year-old male with a past medical history significant for diabetes mellitus DVT hypertension presenting to the hospital for evaluation of left lower extremity swelling redness and pain that apparently has been getting worse over the last 1 week patient denies any history of any trauma, patient has been diagnosed with left leg cellulitis CT did not show any drainable abscess. On today's evaluation that is 03/26/2024, Patient is afebrile patient is currently on room air and denies having any shortness of breath, the patient denies any chest pain or cough, the patient denies any nausea vomiting did not have any abdominal pain and no diarrhea pain to the left leg has slightly decreased in intensity. Did have a creatinine 0.73 culture with presumptive MRSA Objective - Vital Signs Vital signs: Vital Signs Temp 98.6 F 03/26/24 07:25 Pulse 63 03/26/24 07:25 Resp 20 03/26/24 09:15 BP 108/58 03/26/24 07:25 Pulse Ox 94 L 03/26/24 07:25 FiO2 Intake & Output 03/25/24 03/26/24 03/26/24 18:59 06:59 18:59 Intake Total 1620 540 Balance 1620 540 Weight 86.3 kg 86.5 kg Intake: Oral 1620 540 Other: Voiding Method Toilet # Voids 6 2 1 - Exam GENERAL DESCRIPTION: An elderly male lying in bed in no distress RESPIRATORY SYSTEM: Unlabored breathing , decreased breath sounds at bases HEART: S1 S2 regular rate and rhythm , ABDOMEN: Soft , no tenderness EXTREMITIES: Left leg swelling redness slightly decreased - Labs CBC & Chem 7: 03/25/24 03:03 03/26/24 04:09 Labs: Abnormal Lab Results - Last 24 Hours (Table) 03/25/24 03/25/24 03/26/24 Range/Units 16:53 21:09 06:50 POC Glucose (mg/dL) 182 H 211 H 246 H (70-110) mg/dL 03/26/24 Range/Units 11:40 POC Glucose (mg/dL) 220 H (70-110) mg/dL Microbiology - Last 24 Hours (Table) 03/23/24 23:45 Blood Culture - Preliminary Blood 12/13/24 12:50 Gram Stain - Preliminary Leg - Left Assessment and Plan (1) Cellulitis and abscess of left leg Current Visit: Yes Status: Acute Code(s): L03.116 - CELLULITIS OF LEFT LOWER LIMB; L02.416 - CUTANEOUS ABSCESS OF LEFT LOWER LIMB SNOMED Code(s): 581806965 (2) MRSA (methicillin resistant Staphylococcus aureus) infection Current Visit: Yes Status: Acute Code(s): A49.02 - METHICILLIN RESIS STAPH INFECTION, UNSP SITE SNOMED Code(s): 283520022 Plan: 1patient presented to hospital with left lower extremity pain swelling redness has been diagnosed with a cellulitis likely from gram-positive skin betsy underlying abscess likely 2-patient did have CT of the left lower extremity concerning for possible Ahn's cyst but no drainable abscess Ortho has evaluated the patient. No concern to the knee 3-blood cultures currently pending local culture growing presumptive MRSA 4-patient will be treated vancomycin pharmacy to dose target trough of 15 discontinue Unasyn may need IV biotic on discharge because of his extensive infection Dictation was produced using [employer] dictation software. please excuse any grammatical, word or spelling errors.
[2024-03-26 16:39] LABS: Glucose,Whole Blood 218 mg/dL (70-110)
[2024-03-26] MEDS: IBUPROFEN 400 MG TAB PO PRN (20:32)
[2024-03-26 21:23] LABS: Glucose,Whole Blood 153 mg/dL (70-110)
[2024-03-27 06:50] LABS: Glucose,Whole Blood 241 mg/dL (70-110)
[2024-03-27 08:22] LABS: ALT 14 U/L (4-49); AST 17 U/L (17-59); African American GFR (CKD) >90 (>60 ml/min/1.73 sqM); Albumin 2.9 g/dL (3.5-5.0); Albumin/Globulin Ratio 1.3; Alkaline Phosphatase 73 U/L (38-126); Anion Gap 4 mmol/L; Blood Urea Nitrogen 15 mg/dL (9-20); Calcium 8.9 mg/dL (8.4-10.2); Carbon Dioxide 28 mmol/L (22-30); Chloride 105 mmol/L (98-107); Globulin 2.3 g/dL; Glucose 233 mg/dL (74-99); Non-African American GFR(CKD) >90 (>60 ml/min/1.73 sqM); Potassium 4.3 mmol/L (3.5-5.1); Sodium 137 mmol/L (137-145); Total Bilirubin 0.1 mg/dL (0.2-1.3); Total Protein 5.2 g/dL (6.3-8.2)
[2024-03-27 08:42] LABS: Basophils # (A) 0.04 X 10*3/uL (0.00-0.10); Basophils % (A) 0.7 %; Eosinophils # (A) 0.31 X 10*3/uL (0.04-0.35); Eosinophils % (A) 5.2 %; HGB 11.4 g/dL (13.0-17.0); Lymphocytes # (A) 1.55 X 10*3/uL (0.90-5.00); MCH 30.8 pg (27.0-32.0); MCHC 33.5 g/dL (32.0-37.0); MCV 91.9 FL (80.0-97.0); Mean Platelet Volume 11.2 FL (9.5-12.2); Monocytes # (A) 0.42 X 10*3/uL (0.20-1.00); NRBC Per 100 WBC 0 X 10*3/uL (0.00-0.01); Neutrophils # (A) 3.61 X 10*3/uL (1.80-7.70); Neutrophils % (A) 60.6 %; Platelet Count 219 X 10*3/uL (140-440); RDW 12.6 % (11.5-14.5); WBC 5.96 X 10*3/uL (4.50-10.00)
[2024-03-27] MEDS: VANCOMYCIN TROUGH DUE 1 EACH MISC MISCELLANE ONE (10:04)
[2024-03-27 11:32] LABS: Glucose,Whole Blood 147 mg/dL (70-110)
[2024-03-27 16:59] LABS: Glucose,Whole Blood 201 mg/dL (70-110)
[2024-03-27 21:03] LABS: Glucose,Whole Blood 203 mg/dL (70-110)
--- NOTE | 2024-03-27 21:52 | P.PN ---
Subjective Progress Note Date: 03/27/24 Principal diagnosis: Reason for follow-up is left leg abscess cellulitis Patient is a 64-year-old male with a past medical history significant for diabetes mellitus DVT hypertension presenting to the hospital for evaluation of left lower extremity swelling redness and pain that apparently has been getting worse over the last 1 week patient denies any history of any trauma, patient has been diagnosed with left leg cellulitis CT did not show any drainable abscess. On today's evaluation that is 03/27/2024, patient has been afebrile, patient is breathing comfortably and is currently on room air, patient denies having any significant cough no chest pain, patient denies nausea vomiting or diarrhea and no abdominal pain patient pain to the left leg slightly decreased in intensity. Patient did have a creatinine 0.72 Vanco trough is 19.7 local culture with MRSA Objective - Vital Signs Vital signs: Vital Signs Temp 97.9 F 03/27/24 07:25 Pulse 60 03/27/24 07:25 Resp 17 03/27/24 08:00 BP 127/75 03/27/24 07:25 Pulse Ox 94 L 03/27/24 07:25 FiO2 Intake & Output 03/26/24 03/27/24 03/27/24 18:59 06:59 18:59 Intake Total 540 1400 Balance 540 1400 Weight 87 kg Intake: Intake, IV Titration 1400 Amount Sodium Chloride 0.9% 1, 900 000 ml @ 75 mls/hr IV . [id number] [facility] Rx#:[id number] Vancomycin 1,500 mg In 500 Sodium Chloride 0.9% 500 ml 500 ml @ 167 mls/hr IVPB Q8H [facility] Rx#: [id number] Oral 540 Other: Voiding Method Toilet Toilet Urinal # Voids 1 3 - Exam GENERAL DESCRIPTION: An elderly male lying in bed in no distress RESPIRATORY SYSTEM: Unlabored breathing , decreased breath sounds at bases HEART: S1 S2 regular rate and rhythm , ABDOMEN: Soft , no tenderness EXTREMITIES: Left leg swelling redness slightly decreased - Labs CBC & Chem 7: 03/27/24 03:21 03/27/24 07:56 Labs: Abnormal Lab Results - Last 24 Hours (Table) 03/26/24 03/26/24 03/26/24 Range/Units 11:40 16:38 21:21 RBC (4.40-5.60) X 10*6/uL Hgb (13.0-17.0) g/dL Hct (39.6-50.0) % Glucose (74-99) mg/dL POC Glucose (mg/dL) 220 H 218 H 153 H (70-110) mg/dL Total Bilirubin (0.2-1.3) mg/dL Total Protein (6.3-8.2) g/dL Albumin (3.5-5.0) g/dL 03/27/24 03/27/24 03/27/24 Range/Units 03:21 06:49 07:56 RBC 3.70 L (4.40-5.60) X 10*6/uL Hgb 11.4 L (13.0-17.0) g/dL Hct 34.0 L (39.6-50.0) % Glucose 233 H (74-99) mg/dL POC Glucose (mg/dL) 241 H (70-110) mg/dL Total Bilirubin 0.1 L (0.2-1.3) mg/dL Total Protein 5.2 L (6.3-8.2) g/dL Albumin 2.9 L (3.5-5.0) g/dL Microbiology - Last 24 Hours (Table) 03/24/24 12:50 Gram Stain - Final Leg - Left Wound Culture - Final Methicillin resist S. aureus 03/23/24 23:45 Blood Culture - Preliminary Blood Assessment and Plan (1) Cellulitis and abscess of left leg Current Visit: Yes Status: Acute Code(s): L03.116 - CELLULITIS OF LEFT LOWER LIMB; L02.416 - CUTANEOUS ABSCESS OF LEFT LOWER LIMB SNOMED Code(s): 140327817 (2) MRSA (methicillin resistant Staphylococcus aureus) infection Current Visit: Yes Status: Acute Code(s): A49.02 - METHICILLIN RESIS STAPH INFECTION, UNSP SITE SNOMED Code(s): 803052492 Plan: 1patient presented to hospital with left lower extremity pain swelling redness has been diagnosed with a cellulitis likely from gram-positive skin betsy underlying abscess likely 2-patient did have CT of the left lower extremity concerning for possible Ahn's cyst but no drainable abscess Ortho has evaluated the patient. No concern to the knee 3-blood cultures negative, local culture growing MRSA 4-patient did have some improvement we will continue vancomycin pharmacy to dose target trough of 15 for another 24-hour and hopefully finishing therapy with Ba ctrim DS twice daily for 2 weeks on discharge and close outpatient follow-up Dictation was produced using [employer] dictation software. please excuse any grammatical, word or spelling errors. Time with Patient: Less than 30
[2024-03-27 22:04] LABS: Glucose,Whole Blood 227 mg/dL (70-110)
[2024-03-28 03:45] LABS: African American GFR (CKD) >90 (>60 ml/min/1.73 sqM); Non-African American GFR(CKD) >90 (>60 ml/min/1.73 sqM)
[2024-03-28 06:22] LABS: Glucose,Whole Blood 202 mg/dL (70-110)
--- NOTE | 2024-03-28 06:44 | P.PN ---
Subjective Progress Note Date: 03/27/24 patient is a 64-year-old gentleman with past medical history significant for hypertension, hyperlipidemia, diabetes mellitus open in the ER because of left lower extremity wound. Patient stated he was all right 1 week back when he started noticing a wound on his left leg which was accompanied by redness surrounding the area. Over the course of week the redness and the swelling of the leg worsened. Patient took some antibiotics that are prescribed to him previously but with no effect. There was no complaint of fever or chills. There was no complaint of lightheaded and dizziness. Patient denies any lethargy or weakness. Patient noticed that there was purulent discharge from his left leg. Because of this worsening swelling of left leg, patient came to the ER Initial lab work done in the ER showed WBC 5.1, hemoglobin 12.4, sodium 134, potassium 4, BUN 5, creatinine 0.65, glucose 737, lactate 4.8, X-ray tibia and fibula done showed no acute osseous process, edema along the medial left lower leg Patient admitted to internal medicine service 03/25. Patient seen and examined. 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 Ultrasound lower extremities negative for DVT /15. Patient seen and examined. State left leg looks better compared to yesterday 03/27/2024 Patient is seen in follow-up today continuing to report foot pain being followed by infectious disease. Case management following as well working on discharge planning and awaiting finalized cultures to determine discharge antibiotics. Patient was evaluated by orthopedics no plans for surgery at this time. Cul tures preliminary showing MRSA and will discuss further with infectious disease. Patient is afebrile with no reported chest pain or shortness of breath. REVIEW OF SYSTEMS: CONSTITUTIONAL: No fever, no malaise,. CARDIOVASCULAR: No chest pain, no palpitations, no syncope. PULMONARY: No shortness of breath, no cough, GASTROINTESTINAL: No diarrhea, no nausea, no vomiting, no abdominal pain. NEUROLOGICAL: No headaches, no weakness, PHYSICAL EXAMINATION: GENERAL: The patient is alert and oriented x3, not in any acute distress. Well developed, well nourished. Appears older than stated age HEENT: Pupils are round and equally reacting to light. EOMI. No scleral icterus. No conjunctival pallor. Normocephalic, atraumatic. No pharyngeal erythema. No thyromegaly. CARDIOVASCULAR: S1 and S2 present. No murmurs, rubs, or gallops. PULMONARY: Chest is clear to auscultation, no wheezing or crackles. ABDOMEN: Soft, nontender, nondistended, normoactive bowel sounds. No palpable organomegaly. MUSCULOSKELETAL: No joint swelling or deformity. EXTREMITIES: Left leg erythema NEUROLOGICAL: Gross neurological examination did not reveal any focal deficits. SKIN: No rashes. Assessment and plan Sepsis secondary to cellulitis of the left leg, present on admission Cellulitis of left leg, preliminary culture showing MRSA Diabetes mellitus, type II, insulin-dependent uncontrolled with hyperglycemia Lactic acidosis, improved Hypertension Hyperlipidemia GI prophylaxis DVT prophylaxis Full code Plan: Continue with current IV antibiotics with infectious disease following with preliminary culture showing MRSA Orthopedics has evaluated the patient does not feel there is involvement of the knee joint recommending continuing conservative management and antibiotic therapy Await PT/OT therapy evaluation Continue current regimen including pain regimen Case management following and will discuss further regarding discharge planning Overall prognosis is guarded The impression and plan of care has been dictated by Beth Aden, Nurse Practitioner as directed. Dr. Kristie MD I have performed a history and examination and MDM of this patient, discussed the same with the dictator, and agree with the dictator's assessment and plan as written ,documented as a scribe. Based on total visit time, I have performed more than 50% of the visit. Objective - Vital Signs Vital signs: Vital Signs Temp 97.9 F 03/27/24 07:25 Pulse 60 03/27/24 07:25 Resp 17 03/27/24 07:25 BP 127/75 03/27/24 07:25 Pulse Ox 94 L 03/27/24 07:25 FiO2 Intake & Output 03/26/24 03/27/24 03/27/24 18:59 06:59 18:59 Intake Total 540 1400 Balance 540 1400 Weight 87 kg Intake: Intake, IV Titration 1400 Amount Sodium Chloride 0.9% 1, 900 000 ml @ 75 mls/hr IV . [id number] [facility] Rx#:[id number] Vancomycin 1,500 mg In 500 Sodium Chloride 0.9% 500 ml 500 ml @ 167 mls/hr IVPB Q8H [facility] Rx#: [id number] Oral 540 Other: Voiding Method Toilet # Voids 1 3 - Labs CBC & Chem 7: 03/27/24 03:21 03/28/24 03:10 Labs: Abnormal Lab Results - Last 24 Hours (Table) 03/26/24 03/26/24 03/26/24 Range/Units 11:40 16:38 21:21 RBC (4.40-5.60) X 10*6/uL Hgb (13.0-17.0) g/dL Hct (39.6-50.0) % Glucose (74-99) mg/dL POC Glucose (mg/dL) 220 H 218 H 153 H (70-110) mg/dL Total Bilirubin (0.2-1.3) mg/dL Total Protein (6.3-8.2) g/dL Albumin (3.5-5.0) g/dL 03/27/24 03/27/24 03/27/24 Range/Units 03:21 06:49 07:56 RBC 3.70 L (4.40-5.60) X 10*6/uL Hgb 11.4 L (13.0-17.0) g/dL Hct 34.0 L (39.6-50.0) % Glucose 233 H (74-99) mg/dL POC Glucose (mg/dL) 241 H (70-110) mg/dL Total Bilirubin 0.1 L (0.2-1.3) mg/dL Total Protein 5.2 L (6.3-8.2) g/dL Albumin 2.9 L (3.5-5.0) g/dL Microbiology - Last 24 Hours (Table) 03/23/24 23:45 Blood Culture - Preliminary Blood 03/24/24 12:50 Gram Stain - Preliminary Leg - Left Wound Culture - Preliminary Presumptive MRSA
[2024-03-28 09:03] VITALS: BP 127/66; PULSE 72; RESP 16; TEMP 97.6
[2024-03-28 12:03] LABS: Glucose,Whole Blood 213 mg/dL (70-110)
--- NOTE | 2024-03-28 13:16 | P.PN ---
Subjective Progress Note Date: 03/28/24 Principal diagnosis: Reason for follow-up is left leg abscess cellulitis Patient is a 64-year-old male with a past medical history significant for diabetes mellitus DVT hypertension presenting to the hospital for evaluation of left lower extremity swelling redness and pain that apparently has been getting worse over the last 1 week patient denies any history of any trauma, patient has been diagnosed with left leg cellulitis CT did not show any drainable abscess. On today's evaluation that is 03/28/2024, Patient is afebrile this morning patient denies having any chest pain shortness of breath or cough, the patient is currently on room air, patient denies any abdominal pain no diarrhea no nausea no vomiting patient pain to the left leg has decreased in intensity no drainage. Patient did have a creatinine 0.72 blood culture remains to be negative culture positive for MRSA Objective - Vital Signs Vital signs: Vital Signs Temp 97.6 F 03/28/24 07:52 Pulse 72 03/28/24 08:20 Resp 16 03/28/24 08:20 BP 127/66 03/28/24 07:52 Pulse Ox 95 03/28/24 07:52 FiO2 Intake & Output 03/27/24 03/28/24 03/28/24 18:59 06:59 18:59 Weight 85 kg Other: Voiding Method Toilet Toilet Toilet Urinal # Voids 1 2 - Exam GENERAL DESCRIPTION: An elderly male lying in bed in no distress RESPIRATORY SYSTEM: Unlabored breathing , decreased breath sounds at bases HEART: S1 S2 regular rate and rhythm , ABDOMEN: Soft , no tenderness EXTREMITIES: Left leg swelling redness has decreased in intensity no drainage - Labs CBC & Chem 7: 03/27/24 03:21 03/28/24 03:10 Labs: Abnormal Lab Results - Last 24 Hours (Table) 03/27/24 03/27/24 03/27/24 Range/Units 16:58 21:01 22:03 POC Glucose (mg/dL) 201 H 203 H 227 H (70-110) mg/dL 03/28/24 03/28/24 Range/Units 06:21 12:02 POC Glucose (mg/dL) 202 H 213 H (70-110) mg/dL Microbiology - Last 24 Hours (Table) 03/24/24 12:50 Gram Stain - Final Leg - Left Wound Culture - Final Methicillin resist S. aureus Assessment and Plan (1) Cellulitis and abscess of left leg Status: Acute Code(s): L03.116 - CELLULITIS OF LEFT LOWER LIMB; L02.416 - CUTANEOUS ABSCESS OF LEFT LOWER LIMB SNOMED Code(s): 869758097 (2) MRSA (methicillin resistant Staphylococcus aureus) infection Status: Acute Code(s): A49.02 - METHICILLIN RESIS STAPH INFECTION, UNSP SITE SNOMED Code(s): 060534970 Plan: 1patient presented to hospital with left lower extremity pain swelling redness has been diagnosed with a cellulitis likely from gram-positive skin betsy underlying abscess likely 2-patient did have CT of the left lower extremity concerning for possible Ahn's cyst but no drainable abscess Ortho has evaluated the patient. No concern to the knee 3-blood cultures negative, local culture growing MRSA 4-patient did have improvement to the left leg cellulitis plan is to finish therapy with Bactrim DS twice daily for 2 weeks on discharge and close outpatient follow-up, multiple question concern answered Dictation was produced using [employer] dictation software. please excuse any grammatical, word or spelling errors. Time with Patient: Less than 30
== END 2024-03-28 12:54 | disposition home or self-care (01) | DRG 872 ==
LOC: EC 20:05 → 3SCARD 03-24 00:13 → 4SSUR 03-24 14:53
PROVIDERS: ADMIT Hospitalist; ATTEND Hospitalist
DX: A41.02 Sepsis due to Methicillin resistant Staphylococcus aureus (principal); L03.116 Cellulitis of left lower limb; E87.20 Acidosis, unspecified; L02.416 Cutaneous abscess of left lower limb; E78.5 Hyperlipidemia, unspecified; I10 Essential (primary) hypertension; E11.65 Type 2 diabetes mellitus with hyperglycemia; M21.162 Varus deformity, not elsewhere classified, left knee; M17.12 Unilateral primary osteoarthritis, left knee; M60.9 Myositis, unspecified; F90.9 Attention-deficit hyperactivity disorder, unspecified type; F31.9 Bipolar disorder, unspecified; F17.200 Nicotine dependence, unspecified, uncomplicated; K52.9 Noninfective gastroenteritis and colitis, unspecified; Z79.4 Long term (current) use of insulin; Z79.84 Long term (current) use of oral hypoglycemic drugs; Z86.718 Personal history of other venous thrombosis and embolism
CPT/HCPCS: 36415; 80053; 80202; 81003; 82009; 82565; 83036; 83605; 85025; 85652; 86140; 87040; 87070; 87077; 87186; 87205; 93970; 96361; 96365; 96366; 96375; 96376; 99285